=== PATIENT | male | born 1950 | race Caucasian/White ===

== ENCOUNTER 2020-06-29 10:29 | Outpatient (REF) | payer MEDICARE, SELFPAY ==
[2020-06-29 11:47] LABS: MANUAL DIFF FLAG NO
[2020-06-29 11:56] LABS: Glucose Urine UA NEG (NEG); Leukocyte Esterase Urine NEG (NEG); Nitrite Urine NEG (NEG); PH 7.5 (5.0-8.0); Specific Gravity - Urine 1.015 (1.005-1.025); Urine Blood NEG (NEG); Urine Ketones NEG (NEG); Urine Protein NEG (NEG-TRACE)
[2020-06-29 12:02] LABS: Appearance Urine CLEAR; Basophils Absolute Auto 0.1 X10*3/uL (0.0-0.2); Basophils Percent Auto 0.5 % (0-2); Color Urine YELLOW; Eosinophils Absolute Auto 0.4 X10*3/uL (0.0-0.4); Eosinophils Percent Auto 3.3 % (0-4); Hemoglobin 15.3 g/dl (14.0-18.0); Imm Gran Abs Auto 0.08 X10*3/uL (0.00-0.03); Imm Gran Pct Auto 0.7 % (0.0-0.4); Lymphocytes Absolute Auto 2.4 X10*3/uL (1.2-4.9); Lymphocytes Percent Auto 22.5 % (20-40); Mean Corpuscular HGB Conc 32.6 g/dl (31.0-36.0); Mean Corpuscular Hemoglobin 30.2 pg (27.0-33.0); Mean Corpuscular Volume 92.7 fL (80-98); Mean Platelet Volume 10.3 fL (9.4-12.4); Monocytes Absolute Auto 0.7 X10*3/uL (0.1-1.2); Monocytes Percent Auto 6.7 % (2-11); Neutrophils Absolute Auto 7.1 X10*3/uL (2.0-8.3); Neutrophils Percent Auto 66.3 % (45-73); Platelet Count 273 X10*3/uL (160-400); Red Blood Count 5.07 X10*6/uL (4.60-5.80); Red Cell Distribution Width 13.7 % (11.0-16.0); White Blood Count 10.8 X10*3/uL (4.8-10.8)
[2020-06-29 12:19] LABS: Creatinine Urine 52.46 mg/dL; Microalbumin Urine < 5.0 mg/L
[2020-06-29 12:24] LABS: Estimated Average Glucose 120 mg/dL; Hemoglobin A1c % 5.8 %
[2020-06-29 12:59] LABS: Alanine Aminotransferase 41 U/L (0-40); Alkaline Phosphatase 94 U/L (39-117); Anion Gap 13 (12-20); Aspartate Amino Transferase 29 U/L (5-37); Bilirubin Total 0.8 mg/dL (0.0-1.0); Blood Urea Nitrogen 15 mg/dL (9-16); Calcium 9.2 mg/dL (8.4-10.2); Carbon Dioxide 24 mmol/L (22-29); Chloride 105 mmol/L (96-108); Cholesterol 167 mg/dL; Estimated Glomerular Filt Rate > 60; Glucose Fasting 99 mg/dL (60-99); HDL Cholesterol 36 mg/dL; LDL Cholesterol Calculated 112 mg/dl; Potassium 4.2 mmol/l (3.3-5.1); Sodium 138 mmol/L (135-145); Triglycerides 96 mg/dL
[2020-06-29 13:33] LABS: Prostate Specific Antigen 1.01 ng/mL (<0.05-4.0)
== END 2020-06-29 10:30 | disposition home or self-care (01) ==
LOC: HO.LAB 10:29
PROVIDERS: PCP Internal Medicine; Visit Provider Internal Medicine
DX: D72.829 Elevated white blood cell count, unspecified (principal); I10 Essential (primary) hypertension; E78.00 Pure hypercholesterolemia, unspecified; R73.03 Prediabetes
CPT/HCPCS: 36415; 80053; 80061; 81003; 82043; 83036; 84153; 85025

== ENCOUNTER 2020-11-30 10:23 | Outpatient (REF) | payer MEDICARE, SELFPAY ==
[2020-11-30 11:07] LABS: Estimated Average Glucose 123 mg/dL; Hemoglobin A1c % 5.9 %
[2020-11-30 11:51] LABS: Alanine Aminotransferase 76 U/L (0-40); Albumin Level 4.2 g/dL (3.5-5.0); Alkaline Phosphatase 90 U/L (39-117); Aspartate Amino Transferase 37 U/L (5-37); Bilirubin Direct 0.2 mg/dL (0.0-0.5); Bilirubin Total 0.7 mg/dL (0.0-1.0); Cholesterol 161 mg/dL; Glucose Fasting 105 mg/dL (60-99); HDL Cholesterol 43 mg/dL; LDL Cholesterol Calculated 101 mg/dl; Total Protein 7.1 g/dL (6.5-8.0); Triglycerides 85 mg/dL
[2020-11-30 12:51] LABS: Reflex LDLD? No
== END 2020-11-30 10:24 | disposition home or self-care (01) ==
LOC: HO.LNP 10:23
PROVIDERS: Visit Provider Internal Medicine
DX: E78.00 Pure hypercholesterolemia, unspecified (principal); R73.03 Prediabetes
CPT/HCPCS: 80061; 80076; 82947; 83036

== ENCOUNTER 2021-07-11 10:53 | Outpatient (REF) | payer MEDICARE, SELFPAY ==
[2021-07-11 10:57] LABS: MANUAL DIFF FLAG NO
[2021-07-11 11:06] LABS: Basophils Absolute Auto 0.1 X10*3/uL (0.0-0.2); Basophils Percent Auto 0.6 % (0-2); Eosinophils Absolute Auto 0.4 X10*3/uL (0.0-0.4); Eosinophils Percent Auto 3.1 % (0-4); Hematocrit 46.2 % (42.0-52.0); Hemoglobin 15.3 g/dl (14.0-18.0); Imm Gran Abs Auto 0.09 X10*3/uL (0.00-0.03); Imm Gran Pct Auto 0.7 % (0.0-0.4); Lymphocytes Absolute Auto 2.8 X10*3/uL (1.2-4.9); Lymphocytes Percent Auto 22.9 % (20-40); Mean Corpuscular HGB Conc 33.1 g/dl (31.0-36.0); Mean Corpuscular Hemoglobin 31.2 pg (27.0-33.0); Mean Corpuscular Volume 94.3 fL (80.0-98.0); Mean Platelet Volume 10.6 fL (9.4-12.4); Monocytes Percent Auto 7.7 % (2-11); Neutrophils Absolute Auto 8.1 x10*3/uL (2.0-8.3); Platelet Count 248 X10*3/uL (160-400); Red Cell Distribution Width 13.5 % (11.0-16.0); White Blood Count 12.4 X10*3/uL (4.8-10.8)
[2021-07-11 11:08] LABS: Appearance Urine CLEAR; Color Urine YELLOW; Glucose Urine UA NEG (NEG); Leukocyte Esterase Urine NEG (NEG); Nitrite Urine NEG (NEG); PH 7.5 (5.0-8.0); Urine Blood NEG (NEG); Urine Ketones NEG (NEG); Urine Protein NEG (NEG-TRACE)
[2021-07-11 11:21] LABS: Estimated Average Glucose 120 mg/dL; Hemoglobin A1c % 5.8 %
[2021-07-11 11:24] LABS: Creatinine Urine 101.88 mg/dL; Microalbum/Creatinine Ratio Ur 7.8 ug/mg cr
[2021-07-11 11:31] LABS: Alanine Aminotransferase 47 U/L (0-40); Albumin Level 4.2 g/dL (3.5-5.0); Alkaline Phosphatase 81 U/L (39-117); Anion Gap 10 (12-20); Aspartate Amino Transferase 27 U/L (5-37); Bilirubin Total 0.8 mg/dL (0.0-1.0); Blood Urea Nitrogen 20 mg/dL (9-16); Calcium 9.9 mg/dL (8.4-10.2); Carbon Dioxide 29 mmol/L (22-29); Chloride 107 mmol/L (96-108); Cholesterol 172 mg/dL; Estimated Glomerular Filt Rate > 60; Glucose Fasting 104 mg/dL (60-99); HDL Cholesterol 37 mg/dL; LDL Cholesterol Calculated 112 mg/dl; Potassium 4.3 mmol/L (3.3-5.1); Sodium 142 mmol/L (135-145); Total Protein 7.2 g/dL (6.5-8.0); Triglycerides 119 mg/dL
[2021-07-11 11:38] LABS: Reflex LDLD? No
== END 2021-07-11 10:54 | disposition home or self-care (01) ==
LOC: HO.LNP 10:53
PROVIDERS: Visit Provider Internal Medicine
DX: I10 Essential (primary) hypertension (principal); E78.00 Pure hypercholesterolemia, unspecified; R73.03 Prediabetes; D72.829 Elevated white blood cell count, unspecified; Z12.5 Encounter for screening for malignant neoplasm of prostate
CPT/HCPCS: 80053; 80061; 81003; 82043; 83036; 84153; 85025

== ENCOUNTER 2022-04-04 11:18 | Outpatient (REF) | payer MEDICARE, SELFPAY ==
[2022-04-04 12:31] LABS: Cholesterol 156 mg/dL; HDL Cholesterol 36 mg/dL; LDL Cholesterol Calculated 107 mg/dl; Triglycerides 68 mg/dL
[2022-04-04 12:37] LABS: Reflex LDLD? No
== END 2022-04-04 11:19 | disposition home or self-care (01) ==
LOC: HO.LNP 11:18
PROVIDERS: Visit Provider Internal Medicine
DX: E78.00 Pure hypercholesterolemia, unspecified (principal)
CPT/HCPCS: 80061

== ENCOUNTER 2022-10-05 10:38 | Outpatient (REF) | payer MEDICARE, SELFPAY ==
[2022-10-05 10:44] LABS: MANUAL DIFF FLAG NO
[2022-10-05 10:55] LABS: Appearance Urine Clear; Color Urine Yellow; Glucose Urine UA Negative (Negative); Leukocyte Esterase Urine Small (1+) (Negative); Nitrite Urine Negative (Negative); UMIC TRIGGER UACC YES; Urine Blood Negative (Negative); Urine Ketones Negative (Negative); Urine Protein Negative (Neg-Trace)
[2022-10-05 10:57] LABS: Basophils Absolute Auto 0.1 X10*3/uL (0.0-0.2); Basophils Percent Auto 0.7 % (0-2); Eosinophils Absolute Auto 0.6 X10*3/uL (0.0-0.4); Eosinophils Percent Auto 5.5 % (0-4); Hematocrit 48.1 % (42.0-52.0); Hemoglobin 15.8 g/dl (14.0-18.0); Imm Gran Abs Auto 0.09 X10*3/uL (0.00-0.03); Imm Gran Pct Auto 0.8 % (0.0-0.4); Lymphocytes Absolute Auto 2.9 X10*3/uL (1.2-4.9); Lymphocytes Percent Auto 25.2 % (20-40); Mean Corpuscular HGB Conc 32.8 g/dl (31.0-36.0); Mean Corpuscular Hemoglobin 30.7 pg (27.0-33.0); Mean Corpuscular Volume 93.6 fL (80.0-98.0); Mean Platelet Volume 10.3 fL (9.4-12.4); Monocytes Absolute Auto 0.9 X10*3/uL (0.1-1.2); Monocytes Percent Auto 7.9 % (2-11); Neutrophils Absolute Auto 6.9 x10*3/uL (2.0-8.3); Neutrophils Percent Auto 59.9 % (45-73); Platelet Count 273 X10*3/uL (160-400); Red Blood Count 5.14 X10*6/uL (4.60-5.80); White Blood Count 11.5 X10*3/uL (4.8-10.8)
[2022-10-05 11:08] LABS: Bacteria Urine None Seen (None Seen); Hyaline Casts Urine 0-2 /LPF (0-2); RBC Urine 0-2 /HPF (0-2); Squamous Epithelial Cell Urine 0-2 /HPF (0-2); UACC Culture Trigger YES; WBC Urine 0-5 /HPF (0-5)
[2022-10-05 11:23] LABS: Estimated Average Glucose 123 mg/dL; Hemoglobin A1c % 5.9 %
[2022-10-05 11:24] LABS: Alanine Aminotransferase 48 U/L (0-40); Albumin Level 4.1 g/dL (3.5-5.0); Alkaline Phosphatase 111 U/L (39-117); Anion Gap 13 (12-20); Aspartate Amino Transferase 30 U/L (5-37); Bilirubin Total 0.9 mg/dL (0.0-1.0); Blood Urea Nitrogen 13 mg/dL (9-16); Calcium 9.5 mg/dL (8.4-10.2); Carbon Dioxide 28 mmol/L (22-29); Chloride 106 mmol/L (96-108); Cholesterol 185 mg/dL; Estimated Glomerular Filt Rate > 60; Glucose Fasting 106 mg/dL (60-99); HDL Cholesterol 40 mg/dL; LDL Cholesterol Calculated 130 mg/dl; Potassium 4.3 mmol/L (3.3-5.1); Sodium 143 mmol/L (135-145); Total Protein 7.1 g/dL (6.5-8.0); Triglycerides 75 mg/dL
[2022-10-05 11:31] LABS: PSA,Total (Free>4and<10) 0.67 ng/mL (0.00-4.00)
[2022-10-05 11:33] LABS: Creatinine Urine 101.32 mg/dL; Microalbum/Creatinine Ratio Ur 6.9 ug/mg cr
== END 2022-10-05 10:39 | disposition home or self-care (01) ==
LOC: HO.LNP 10:38
PROVIDERS: Visit Provider Internal Medicine
DX: Z12.5 Encounter for screening for malignant neoplasm of prostate (principal); I10 Essential (primary) hypertension; E78.00 Pure hypercholesterolemia, unspecified; R73.03 Prediabetes; E78.6 Lipoprotein deficiency; D72.829 Elevated white blood cell count, unspecified
CPT/HCPCS: 80053; 80061; 81001; 82043; 83036; 84153; 85025; 87086

== ENCOUNTER 2023-03-05 13:46 | Outpatient (AMB) | payer MEDICARE, SELFPAY ==
[2023-03-05 14:39] VITALS: BP 140/70; PULSE 83; BMI 29.5
--- NOTE | 2023-03-05 14:39 | MHC.OFFVIS ---
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 Patient has multiple cardiovascular risk factors including hypertension, dyslipidemia. Per patient, he also has vascular disease and underwent abdominal aortic aneurysm repair few years ago at [facility]. No documented coronary disease myocardial infarction. He has been getting off and on chest pains. Nothing in the last few weeks. Generally happens when he is exerting himself. He is somewhat vague in his description but overall, possible angina. [facility] Medical History (Updated 03/05/23 @ 14:49 by Latrell Knox MD) Dyslipidemia Hypertension ELLA (obstructive sleep apnea) Surgical History (Updated 03/05/23 @ 14:50 by Latrell Knox MD) No pertinent past surgical history Status post AAA (abdominal aortic aneurysm) repair Family History (Updated 03/05/23 @ 14:41 by Maddison Rice) Father Lung cancer Mother No problems noted. Social History (Updated 03/05/23 @ 14:41 by Maddison Rice) Alcohol intake: current Alcohol intake frequency: holidays/special occasions only Patient Tobacco Use Status: Former Tobacco user Quit Date: 2020 Review of Systems Const Denies chills, Denies daytime sleepiness, Denies fatigue, Denies fever(s), Denies frequent falls, Denies night sweats, Denies snoring, Denies weakness, Denies weight gain and Denies weight loss Eyes Denies loss of vision ENT Denies dizziness and Denies hearing loss Card Denies chest pain, Denies chest pain with activity, Denies syncope, Denies rapid heart rate, Denies edema, Denies claudication, Denies leg edema, Denies lightheadedness, Denies palpitations, Denies dyspnea, Denies dyspnea on exertion and Denies orthopnea Resp Denies cough, Denies excessive phlegm production, Denies dyspnea, Denies dyspnea on exertion, Denies snoring and Denies wheezing GI Denies abdominal pain, Denies hematochezia, Denies change in bowel habits, Denies change in stool character, Denies heartburn, Denies nausea and Denies vomiting Denies hematuria, Denies dysuria and Denies urinary frequency Musc Denies arthralgias, Denies muscle weakness, Denies numbness and Denies tingling Skin/Breast Denies nail changes and Denies rash Neuro Denies Abnormal speech present, Denies dizziness, Denies syncope, Denies frequent falls, Denies loss of vision, Denies memory loss, Denies numbness, Denies tingling and Denies weakness Psych Denies depression and Denies memory loss Endo Denies fatigue and Denies palpitations Aller/Immun Denies wheezing Physical Exam Vital Signs: Last Vital Signs Pulse 83 03/05/23 14:39 BP 140/70 H 03/05/23 14:39 BMI result Body Mass Index 29.5 Const General: comfortable and no acute distress Orientation/consciousness: patient oriented x3 HEENT Other: Unremarkable Head: Yes normal to inspection Neck Neck: Yes normal visual inspection Chest Chest palpation & inspection: normal inspection of the chest Resp Auscultation: clear to auscultation bilaterally Cardio Palpation: normal PMI Heart sounds: S1 normal heart sound present, S2 normal heart sound present, no gallops, no murmurs and no rubs GI Palpation (GI): Soft to palpation Back/Spine/Pelvis Other: unremarkable Skin General skin exam: no rashes or lesions noted Neuro General: patient oriented x3 Speech: No Abnormal speech present Extrem General: Yes normal to inspection Psych Mental Status: mental status grossly normal Office Procedures EKG Details: EKG with sinus rhythm at 83/Min; no significant ST-T changes and otherwise unremarkable[place] [id number], Complete Assessment & Plan Assessment & Plan (1) Precordial chest pain: Code(s): R07.2 - Precordial pain (2) Hypertension: Code(s): I10 - Essential (primary) hypertension (3) Dyslipidemia: Code(s): E78.5 - Hyperlipidemia, unspecified (4) Status post AAA (abdominal aortic aneurysm) repair: Code(s): Z98.890 - Other specified postprocedural states; Z86.79 - Personal history of other diseases of the circulatory system Plan Presentation possible angina but difficult to say as he is somewhat vague in description. He needs further workup with echocardiogram and stress test. Discussed with patient and he is agreeable. In the interim, advised to avoid strenuous physical activity. Orders: Orders CA stress test Today R07.2 - Precordial pain CA echo transthoracic complete Today I25.10 - Atherosclerotic heart disease of [place] coronary artery without angina pectoris, R07.2 - Precordial pain NM cardiolite stress test Today R07.2 - Precordial pain Coding Level of Care Code New Pt Level 4 (19543) Diagnoses Precordial chest pain R07.2 Hypertension I10 Dyslipidemia E78.5 Status post AAA (abdominal aortic aneurysm) repair Z98.890; Z86.79 CPT Codes EKG - CPT: [id number], Complete ([id number])
== END 2023-03-05 14:56 | disposition home or self-care (01) ==
PROVIDERS: PCP Internal Medicine; Referring Provider Internal Medicine; Visit Provider Internal Medicine
DX: R07.2 Precordial pain (principal); I10 Essential (primary) hypertension; E78.5 Hyperlipidemia, unspecified; Z98.890 Other specified postprocedural states; Z86.79 Personal history of other diseases of the circulatory system
CPT/HCPCS: 93010; 99204

== ENCOUNTER → 2023-03-05 13:46 | Outpatient (BNVA) | payer MEDICARE, SELFPAY | PROVIDERS: PCP Internal Medicine; Referring Provider Internal Medicine; Visit Provider Internal Medicine | DX: R07.2 Precordial pain (principal); I10 Essential (primary) hypertension; E78.5 Hyperlipidemia, unspecified; Z86.79 Personal history of other diseases of the circulatory system; Z98.890 Other specified postprocedural states | CPT/HCPCS: 93005; 99202 ==

== ENCOUNTER → 2023-04-10 07:36 | Outpatient (REF) | payer MEDICARE, SELFPAY ==
--- NOTE | 2023-04-10 07:42 | CA_ITS ---
Acquisition Time: 2023-04-10 09:10:26 Total Exercise Time: 00:05:57 Test Indications: CP Medications: AMLODIPINE ATORVASTATIN LISINOPRIL/HCTZ Protocol: ANNELISE Max HR: 120 BPM 81% of Pred: 147 BPM Max BP: 184/080 mmHG Max Work Load: 6.3 METS Exercise stress test exercise 5 min 57 sec of Annelise protocol stage 1 held and manually adjusted to 2.2mph and 12% mph briefly achieivng 81% MPHR with 2-3/10 chest pressure, mild SOB, with isolated PACs and PVCs, with normotensive response to exercise, with downsloping depression V4-V6. Chest pressure resolved with rest. Nuclear images pending.Test reviewed with Dr. Knox. Referred By: Latrell Knox Overread By: Opal Marshall
== END ==
LOC: HO.CARD 07:36
PROVIDERS: PCP Internal Medicine; Visit Provider Internal Medicine
DX: R07.2 Precordial pain (principal); I25.10 Atherosclerotic heart disease of native coronary artery without angina pectoris
CPT/HCPCS: 78452; 93017; 93306; 93356; A9500

== ENCOUNTER → 2023-04-10 07:42 | Outpatient (BNV) | payer MEDICARE, SELFPAY | PROVIDERS: PCP Internal Medicine; Visit Provider Nurse Practitioner | DX: I25.10 Atherosclerotic heart disease of native coronary artery without angina pectoris (principal) | CPT/HCPCS: 78452; 93016; 93018; 93306 ==

== ENCOUNTER 2023-04-30 06:24 | Outpatient (REF) | payer MEDICARE, SELFPAY ==
[2023-04-30 06:34] LABS: MANUAL DIFF FLAG NO
[2023-04-30 07:18] LABS: Basophils Absolute Auto 0.1 X10*3/uL (0.0-0.2); Basophils Percent Auto 0.5 % (0-2); Eosinophils Absolute Auto 0.4 X10*3/uL (0.0-0.4); Hematocrit 47.8 % (42.0-52.0); Hemoglobin 15.7 g/dl (14.0-18.0); Imm Gran Abs Auto 0.07 X10*3/uL (0.00-0.03); Imm Gran Pct Auto 0.6 % (0.0-0.4); Lymphocytes Absolute Auto 3.2 X10*3/uL (1.2-4.9); Mean Corpuscular HGB Conc 32.8 g/dl (31.0-36.0); Mean Corpuscular Hemoglobin 31.2 pg (27.0-33.0); Mean Platelet Volume 10.5 fL (9.4-12.4); Monocytes Absolute Auto 0.9 X10*3/uL (0.1-1.2); Monocytes Percent Auto 7.4 % (2-11); Neutrophils Absolute Auto 7.7 x10*3/uL (2.0-8.3); Neutrophils Percent Auto 62.5 % (45-73); Platelet Count 235 X10*3/uL (160-400); Red Blood Count 5.03 X10*6/uL (4.60-5.80); Red Cell Distribution Width 14.5 % (11.0-16.0); White Blood Count 12.2 X10*3/uL (4.8-10.8)
[2023-04-30 07:23] LABS: INTERNATIONAL NORM RATIO 0.9 (0.9-1.1)
[2023-04-30 07:47] LABS: Anion Gap 13 (12-20); Blood Urea Nitrogen 12 mg/dL (9-16); Calcium 9.7 mg/dL (8.4-10.2); Carbon Dioxide 24 mmol/L (22-29); Chloride 111 mmol/L (96-108); Estimated Glomerular Filt Rate > 60; Glucose Random 121 mg/dL (60-115); Potassium 4.3 mmol/L (3.3-5.1); Sodium 144 mmol/L (135-145)
== END 2023-04-30 06:25 | disposition home or self-care (01) ==
LOC: HO.LAB 06:24
PROVIDERS: PCP Internal Medicine; Visit Provider Nurse Practitioner
DX: R93.1 Abnormal findings on diagnostic imaging of heart and coronary circulation (principal); R94.39 Abnormal result of other cardiovascular function study; E78.5 Hyperlipidemia, unspecified; I10 Essential (primary) hypertension; R07.2 Precordial pain; Z98.890 Other specified postprocedural states; Z86.79 Personal history of other diseases of the circulatory system
CPT/HCPCS: 36415; 80048; 85025; 85610

== ENCOUNTER → 2023-05-01 23:59 | Outpatient (BNV) | payer MEDICARE, SELFPAY | PROVIDERS: PCP Internal Medicine; Visit Provider Internal Medicine Cardiovascular Disease | DX: I20.89 Other forms of angina pectoris (principal); R93.1 Abnormal findings on diagnostic imaging of heart and coronary circulation; R07.9 Chest pain, unspecified | CPT/HCPCS: 93458; 93571; 99152 ==

== ENCOUNTER 2023-05-03 11:23 | Outpatient (REF) | payer MEDICARE, SELFPAY ==
[2023-05-03 11:27] LABS: MANUAL DIFF FLAG NO
[2023-05-03 11:35] LABS: Basophils Absolute Auto 0.1 X10*3/uL (0.0-0.2); Basophils Percent Auto 0.5 % (0-2); Eosinophils Absolute Auto 0.3 X10*3/uL (0.0-0.4); Eosinophils Percent Auto 2.5 % (0-4); Hematocrit 49.5 % (42.0-52.0); Hemoglobin 16.1 g/dl (14.0-18.0); Imm Gran Abs Auto 0.07 X10*3/uL (0.00-0.03); Imm Gran Pct Auto 0.6 % (0.0-0.4); Lymphocytes Absolute Auto 2.6 X10*3/uL (1.2-4.9); Lymphocytes Percent Auto 20.7 % (20-40); Mean Corpuscular HGB Conc 32.5 g/dl (31.0-36.0); Mean Corpuscular Hemoglobin 31.1 pg (27.0-33.0); Mean Corpuscular Volume 95.6 fL (80.0-98.0); Mean Platelet Volume 11.3 fL (9.4-12.4); Monocytes Absolute Auto 0.9 X10*3/uL (0.1-1.2); Monocytes Percent Auto 7.1 % (2-11); Neutrophils Absolute Auto 8.7 x10*3/uL (2.0-8.3); Neutrophils Percent Auto 68.6 % (45-73); Platelet Count 253 X10*3/uL (160-400); Red Blood Count 5.18 X10*6/uL (4.60-5.80); Red Cell Distribution Width 14.5 % (11.0-16.0); White Blood Count 12.7 X10*3/uL (4.8-10.8)
[2023-05-03 11:36] LABS: Appearance Urine Clear; Color Urine Yellow; Glucose Urine UA Negative (Negative); Leukocyte Esterase Urine Trace (Negative); Nitrite Urine Negative (Negative); Specific Gravity - Urine 1.015 (1.005-1.025); UMIC TRIGGER UACC YES; Urine Blood Negative (Negative); Urine Ketones Negative (Negative); Urine Protein Negative (Neg-Trace)
[2023-05-03 11:39] LABS: Bacteria Urine None Seen (None Seen); Hyaline Casts Urine 0-2 /LPF (0-2); RBC Urine 0-2 /HPF (0-2); Squamous Epithelial Cell Urine 0-2 /HPF (0-2); WBC Urine 0-5 /HPF (0-5)
[2023-05-03 11:44] LABS: Estimated Average Glucose 105 mg/dL; Hemoglobin A1c % 5.3 % (<6.0)
[2023-05-03 11:53] LABS: Alanine Aminotransferase 46 U/L (0-40); Albumin Level 4.3 g/dL (3.5-5.0); Alkaline Phosphatase 104 U/L (39-117); Anion Gap 11 (12-20); Aspartate Amino Transferase 32 U/L (5-37); Bilirubin Total 0.9 mg/dL (0.0-1.0); Blood Urea Nitrogen 12 mg/dL (9-16); Calcium 10.2 mg/dL (8.4-10.2); Carbon Dioxide 28 mmol/L (22-29); Chloride 105 mmol/L (96-108); Cholesterol 177 mg/dL (<200); Estimated Glomerular Filt Rate > 60; Glucose Fasting 105 mg/dL (60-99); HDL Cholesterol 41 mg/dL (>40); LDL Cholesterol Calculated 119 mg/dL (<100); Potassium 3.7 mmol/L (3.3-5.1); Sodium 140 mmol/L (135-145); Total Protein 7.7 g/dL (6.5-8.0); Triglycerides 89 mg/dL (<150)
[2023-05-03 12:07] LABS: PSA,Total (Free>4and<10) 0.55 ng/mL (0.00-4.00)
[2023-05-03 12:22] LABS: Creatinine Urine 49.99 mg/dL; Microalbumin Urine < 5.0 mg/L
== END 2023-05-03 11:24 | disposition home or self-care (01) ==
LOC: HO.LNP 11:23
PROVIDERS: Visit Provider Internal Medicine
DX: Z12.5 Encounter for screening for malignant neoplasm of prostate (principal); I10 Essential (primary) hypertension; E78.00 Pure hypercholesterolemia, unspecified; E78.6 Lipoprotein deficiency; D72.829 Elevated white blood cell count, unspecified; R73.03 Prediabetes
CPT/HCPCS: 80053; 80061; 81001; 82043; 82570; 83036; 84153; 85025

== ENCOUNTER 2023-05-16 12:19 | Outpatient (AMB) | payer MEDICARE, SELFPAY ==
[2023-05-16 12:28] VITALS: BP 118/62; PULSE 55; BMI 29.9
--- NOTE | 2023-05-16 12:28 | MHC.OFFVIS ---
Intake Vital Signs 05/16/23 12:28 Height 6 ft Weight 220 lb 7.396 oz BMI 29.9 BP 118/62 Blood Pressure Location Lt brachial Position Sitting Pulse 55 Intake Visit Reasons: Follow up post cardiac cath Utilization Management Um Nurse Required: No Accompanied by: Allergies No Known Allergies [No Known Allergies*] Allergy (Verified 05/16/23 12:31) Medication List - Last Reconciled 05/16/23 by Opal Marshall NP amlodipine 5 mg PO DAILY aspirin 81 mg PO DAILY 90 days atorvastatin 80 mg PO DAILY lisinopril-hydrochlorothiazide 20-12.5 mg 1 tab PO DAILY metoprolol succinate ER 50 mg PO DAILY HPI HPI Comments History of Present Illness Details 72-year-old male presents today for a follow-up post testing and cardiac catheterization. He presents with his and they mostly want to discuss the CABG surgery that was presented to him and their worries. He reports he is doing well and still has that occasional mild chest discomfort. He wanted to discuss what they are going to do for the CABG, where will they get the graft, the risks, and the testing Kp Joshi wanted. The testing was a caroitid ultrasound and a CT. he was prescribed metprolol succinate after his stress test and has been doing well with it. Right radial site is healing appropriate. [facility] Medical History ELLA (obstructive sleep apnea) Dyslipidemia Hypertension Surgical History Status post AAA (abdominal aortic aneurysm) repair No pertinent past surgical history Family History Father Lung cancer Mother No problems noted. Social History Alcohol intake: current Alcohol intake frequency: holidays/special occasions only Patient Tobacco Use Status: Former Tobacco user Quit Date: 2020 Review of Systems Const Denies chills, Denies fatigue, Denies fever(s), Denies frequent falls, Denies weakness, Denies weight gain and Denies weight loss ENT Denies dizziness Card Denies chest pain, Denies chest pain with activity, Denies syncope, Denies rapid heart rate, Denies pedal edema, Denies irregular heart rhythm, Denies leg edema, Denies lightheadedness, Denies palpitations, Denies dyspnea, Denies dyspnea on exertion, Denies orthopnea and Denies other (LOC) Resp Denies cough, Denies dyspnea and Denies dyspnea on exertion GI Denies hematochezia and Denies change in bowel habits Musc Denies abnormal gait, Denies arthralgias, Denies muscle weakness, Denies numbness, Denies radiating pain into limb and Denies tingling Neuro Denies abnormal gait, Denies dizziness, Denies syncope, Denies frequent falls, Denies numbness, Denies tingling and Denies weakness Endo Denies fatigue and Denies palpitations Physical Exam Const General: healthy appearing and no acute distress Orientation/consciousness: patient oriented x3 HEENT Head: Yes normal to inspection Eyes General: appearance normal, both eyes and all related structures Neck Neck: Yes normal visual inspection Chest Chest palpation & inspection: normal inspection of the chest Resp Effort & Inspection: normal respiratory effort Auscultation: clear to auscultation bilaterally Cardio Jugular venous distension: no JVD Palpation: normal PMI Rate: regular rate Rhythm: regular rhythm Heart sounds: S1 normal heart sound present, S2 normal heart sound present, no click, no gallops, no murmurs and no rubs GI Inspection: Yes normal to inspection Palpation (GI): Soft to palpation Skin General skin exam: no rashes or lesions noted Neuro General: patient oriented x3 Extrem Other: Right radial access site for cardiac cath. Healing well. No bruising or tenderness noted. Pulses presesnt distal and proximal. General: Yes normal to inspection Psych Appearance: grossly normal Results Reviewed Results Reviewed: Stress test with nuclear imaging - 1. Myocardial perfusion imaging study shows mixed ischemia/infarct pattern in the inferior wall. 2. Gated LVEF is 70% during stress and 69% during rest, correlate with echocardiogram. 3. Transient ischemic dilatation not present. Cardiac Cathetierization - LMCA: Mild diffuse disease (<30%). LAD: Lesion in Prox LAD: Proximal subsection.70% stenosis . LCx: Lesion in Mid CX: 100% stenosis .Chronic total occlusion. Lesion in 1st Ob Araceli: Proximal subsection.80% stenosis . RCA: Mild luminal irregularities (<30%). Assessment & Plan Assessment & Plan (1) S/P cardiac cath: Comment: 05/01/[address] Ernesto Cardiac Cathetierization - LMCA: Mild diffuse disease (<30%). LAD: Lesion in Prox LAD: Proximal subsection.70% stenosis . LCx: Lesion in Mid CX: 100% stenosis .Chronic total occlusion. Lesion in 1st Ob Araceli: Proximal subsection.80% stenosis . RCA: Mild luminal irregularities (<30%). Rec: CABG Code(s): Z98.890 - Other specified postprocedural states (2) Abnormal nuclear stress test: Code(s): R94.39 - Abnormal result of other cardiovascular function study (3) Hypertension: Code(s): I10 - Essential (primary) hypertension (4) Precordial chest pain: Code(s): R07.2 - Precordial pain Plan PT is planning for a CABG. He is going to let us know when it is scheduled. Discussed in detail about the total occlusion. Continue medications as prescribed - ASA 81mg will be indefinitely. Any chest discomfort seek ED care. Will have him return in [address] Knox. Coding Level of Care Code Est Pt Level 4 (40024) Diagnoses S/P cardiac cath Z98.890 Abnormal nuclear stress test R94.39 Hypertension I10 Precordial chest pain R07.2
== END 2023-05-16 12:56 | disposition home or self-care (01) ==
PROVIDERS: PCP Internal Medicine; Visit Provider Nurse Practitioner
DX: Z98.890 Other specified postprocedural states (principal); R94.39 Abnormal result of other cardiovascular function study; I10 Essential (primary) hypertension; R07.2 Precordial pain
CPT/HCPCS: 99214

== ENCOUNTER → 2023-05-16 12:19 | Outpatient (BNVA) | payer MEDICARE, SELFPAY | PROVIDERS: PCP Internal Medicine; Visit Provider Nurse Practitioner | DX: R07.2 Precordial pain (principal); I10 Essential (primary) hypertension; R94.39 Abnormal result of other cardiovascular function study; Z98.890 Other specified postprocedural states | CPT/HCPCS: 99212 ==

== ENCOUNTER 2023-05-30 12:36 | Outpatient (REF) | payer MEDICARE, SELFPAY ==
--- NOTE | ~2023-05-30 | CT_ITS ---
EXAMINATION: CT CHEST WITHOUT CONTRAST CLINICAL INFORMATION: Aortic calcifications, carotid artery. COMPARISON: None available. TECHNIQUE: Multidetector volumetric CT imaging of the chest was done. Axial MIP volume rendering provided. Sagittal and coronal reformatted images were obtained. This CT examination was performed using dose optimization techniques as appropriate, variously including the following: *Automated exposure control *Adjustment of mA and/or kV according to patient size (this includes techniques or standardized protocols for targeted exams where dose is matched to indication/reason for exam; i.e. 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 Degenerative changes. Abdominal aortic stent graft. LUNGS: Minor apical thickening. Trachea and bronchi are patent. Hyperinflation with centrilobular emphysema. RLL groundglass opacity measuring 2.5 x 2.6 x 2 cm abuts the right major fissure. On 7:344, possible slight hyperdense peripheral appearance to the groundglass opacity. Adjacent 5 and 6 mm perifissural nodules are seen, likely lymph nodes. Scattered atelectasis. MEDIASTINUM: Question 1.5 cm right anterior thyroid hypodensity. Right thyroid calcification. No pathologic lymphadenopathy. Nonenlarged heart. No pericardial effusion. Nonaneurysmal aorta with atherosclerotic calcifications. Mild atherosclerotic calcifications right brachiocephalic/common carotid artery origin. Punctate calcifications at origins of the left subclavian and left common carotid arteries. Ectatic right pulmonary artery. CORONARY ARTERY CALCIFICATION: Moderate. PLEURA: There is no pleural effusion. No pleural mass. Minor focal pleural thickening left lower lobe adjacent to the fissure. AXILLA: No lymphadenopathy. UPPER ABDOMEN: Unremarkable. OSSEOUS/SOFT TISSUE STRUCTURES: 7 cm right anteromedial chest wall and 2.7 cm left posterolateral thoracic subcutaneous lesions, likely sebaceous cysts. Mild gynecomastia. CT/CT chest wo IV con IMPRESSION: Moderate coronary artery calcifications. Mild aortic calcifications. No hemodynamically significant great vessel calcific stenoses on noncontrast study. Indeterminate 2.6 cm right lower lobe groundglass opacity. Follow-up CT in 3-6 months. Right thyroid nodule calcification question nodule. Thyroid ultrasound recommended. Likely chest wall sebaceous cysts. Fleischner guidelines were followed.
== END 2023-05-30 12:37 | disposition home or self-care (01) ==
LOC: HO.CT 12:36
PROVIDERS: PCP Internal Medicine; Visit Provider Thoracic Surgery (Cardiothoracic Vascular Surgery)
DX: I70.0 Atherosclerosis of aorta (principal); R09.89 Other specified symptoms and signs involving the circulatory and respiratory systems
CPT/HCPCS: 71250

== ENCOUNTER 2023-06-06 11:38 | Outpatient (REF) | payer MEDICARE, SELFPAY ==
--- NOTE | ~2023-06-06 | US_ITS ---
EXAMINATION: US EXTRACRANIAL CAROTID DUPLEX, BILATERAL CLINICAL INFORMATION: Carotid bruit. COMPARISON: None available. TECHNIQUE: Real-time ultrasound and Doppler techniques (integrating B-mode 2-D vascular images, Doppler spectral analysis and color-flow Doppler imaging) were utilized to interrogate the extracranial carotid arteries, the vertebral arteries and proximal subclavian arteries bilaterally. The degree of stenosis is determined by criteria similar to NASCET. FINDINGS: Right Side: 1. There is [id number] atherosclerotic plaque seen in the bifurcation/proximal ICA region. 2. The common carotid artery PSV proximally is 81 cm/s and distally 67 cm/s. 3. The proximal internal carotid artery velocities are 93 cm/s systolic and 23 cm/s diastolic. 4. The proximal external carotid artery PSV is 134 cm/s. 5. The vertebral artery shows antegrade flow. 6. The subclavian artery waveforms are normal. Left Side: 1. There is mild atherosclerotic plaque seen in the bifurcation/proximal ICA region. 2. The common carotid artery PSV proximally is 122 cm/s and distally 99 cm/s. 3. The proximal internal carotid artery velocities are 94 cm/s systolic and 17 cm/s diastolic. 4. The proximal external carotid artery PSV is 113 cm/s. 5. The vertebral artery shows antegrade flow. 6. The subclavian artery waveforms are normal. US/US carotid duplex BI IMPRESSION: 1. RIGHT: Minimal, non-hemodynamically significant stenosis of the proximal right internal carotid artery corresponding to a 0-49% stenosis by velocity criteria. 2. LEFT: Minimal, non-hemodynamically significant stenosis of the proximal left internal carotid artery corresponding to a 0-49% stenosis by velocity criteria.
== END 2023-06-06 11:39 | disposition home or self-care (01) ==
LOC: HO.HMGCX 11:38
PROVIDERS: PCP Internal Medicine; Visit Provider Thoracic Surgery (Cardiothoracic Vascular Surgery)
DX: R09.89 Other specified symptoms and signs involving the circulatory and respiratory systems (principal)
CPT/HCPCS: 93880

== ENCOUNTER 2023-08-28 12:17 | Outpatient (AMB) | payer MEDICARE, SELFPAY ==
--- NOTE | 2023-08-28 12:39 | A.OFFVIS_ITS ---
Intake Vital Signs 08/28/23 12:40 Height 6 ft Weight 220 lb 0.341 oz BMI 29.8 BP 140/66 H Blood Pressure Location Lt brachial Position Sitting Pulse 70 Intake Visit Reasons: 3 mth f/up cabg/ ac Intake Note: 3 month follow up Environmental Services Specialist Required: No Accompanied by: Spouse Allergies No Known Allergies [No Known Allergies*] Allergy (Verified 08/28/23 12:42) Medication List - Last Reconciled 08/28/23 by Latrell Knox MD amlodipine 5 mg PO DAILY aspirin 81 mg PO DAILY 90 days atorvastatin 80 mg PO DAILY clopidogrel 75 mg PO DAILY metoprolol tartrate 25 mg PO BID HPI HPI Comments History of Present Illness Details Cosme returns for follow-up. He was seen in consultation regarding chest pain. Multiple cardiovascular risk factors including hypertension, dyslipidemia. Also history of vascular disease and he underwent abdominal aortic aneurysm repair many years ago at [facility]. Noninvasive workup led to diagnostic catheterization leading to coronary artery bypass surgery. He states he is actually doing very good. No further cardiac symptoms at this time. He seems to be staying with his family in [place] at this time. [facility] Medical History (Updated 08/28/23 @ 13:03 by Latrell Knox MD) Atherosclerotic cardiovascular disease ELLA (obstructive sleep apnea) Dyslipidemia Hypertension Surgical History (Updated 08/28/23 @ 13:02 by Latrell Knox MD) S/P CABG (coronary artery bypass graft) Status post AAA (abdominal aortic aneurysm) repair Family History Father Lung cancer Mother No problems noted. Social History Alcohol intake: current Alcohol intake frequency: holidays/special occasions only Patient Tobacco Use Status: Former Tobacco user Quit Date: 2020 Review of Systems Const Denies weakness ENT Denies dizziness Card Denies chest pain, Denies chest pain with activity, Denies syncope, Denies rapid heart rate, Denies pedal edema, Denies edema, Denies leg edema, Denies lightheadedness, Denies palpitations, Denies dyspnea, Denies dyspnea on exertion and Denies orthopnea Resp Denies cough, Denies dyspnea and Denies dyspnea on exertion GI Denies hematochezia and Denies change in stool character Musc Denies abnormal gait, Denies muscle cramps, Denies muscle weakness, Denies numbness, Denies radiating pain into limb and Denies tingling Neuro Denies abnormal gait, Denies dizziness, Denies syncope, Denies numbness, Denies tingling and Denies weakness Endo Denies palpitations Physical Exam Vital Signs: Last Vital Signs Pulse 70 08/28/23 12:40 BP 140/66 H 08/28/23 12:40 BMI result Body Mass Index 29.8 Const General: comfortable and no acute distress Orientation/consciousness: patient oriented x3 HEENT Other: Unremarkable Head: Yes normal to inspection Neck Neck: Yes normal visual inspection Chest Chest palpation & inspection: normal inspection of the chest Resp Auscultation: clear to auscultation bilaterally Cardio Palpation: normal PMI Heart sounds: S1 normal heart sound present, S2 normal heart sound present, no gallops, no murmurs and no rubs GI Palpation (GI): Soft to palpation Back/Spine/Pelvis Other: unremarkable Skin General skin exam: no rashes or lesions noted Neuro General: patient oriented x3 Extrem General: Yes normal to inspection Psych Mental Status: mental status grossly normal Assessment & Plan Assessment & Plan (1) Atherosclerotic cardiovascular disease: Code(s): I25.10 - Atherosclerotic heart disease of [place] coronary artery without angina pectoris Plan: Cardiac studies reviewed in detail. Echocardiogram with LVEF 59%. Inferior/inferoseptal/inferolateral hypokinesis. In the perfusion imaging, mixed ischemia/infarct pattern in the inferior wall. Carotid ultrasound shows no significant stenosis. 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 Status post CABG x3; salas to LAD, SVG to OM1 and SVG to left posterolateral bran ch. Clinically, he does not have any angina. Continue aspirin, beta-blockers and statins. Check lipids. Take Plavix 1 year from time of bypass. (2) S/P CABG (coronary artery bypass graft): Code(s): Z95.1 - Presence of aortocoronary bypass graft Plan: Seems to have recovered well. (3) PAF (paroxysmal atrial fibrillation): Code(s): I48.0 - Paroxysmal atrial fibrillation Plan: Postoperative atrial fibrillation noted after bypass surgery. We can check a Holter for follow-up. He was on amiodarone, now stopped. (4) Hypertension: Code(s): I10 - Essential (primary) hypertension Plan: Med list had lisinopril/HCTZ in the past. No longer on this after bypass. However, patient states home blood pressures are much lower and hence we can monitor. Plan Discussed with significant other. Orders: Orders CA echo transthoracic complete Today I25.10 - Atherosclerotic heart disease of [place] coronary artery without angina pectoris, Z95.1 - Presence of aortocoronary bypass graft ECG 7 day holter monitor Today I48.0 - Paroxysmal atrial fibrillation Liver Panel Today I25.10 - Atherosclerotic heart disease of [place] coronary artery without angina pectoris, Z95.1 - Presence of aortocoronary bypass graft Lipid Panel Today E78.5 - Hyperlipidemia, unspecified, Z95.1 - Presence of aortocoronary bypass graft Coding Level of Care Code Est Pt Level 4 (60822) Diagnoses Atherosclerotic cardiovascular disease I25.10 S/P CABG (coronary artery bypass graft) Z95.1 PAF (paroxysmal atrial fibrillation) I48.0 Hypertension I10
[2023-08-28 12:40] VITALS: BP 140/66; PULSE 70; BMI 29.8
== END 2023-08-28 13:21 | disposition home or self-care (01) ==
PROVIDERS: PCP Internal Medicine; Visit Provider Internal Medicine
DX: I25.10 Atherosclerotic heart disease of native coronary artery without angina pectoris (principal); Z95.1 Presence of aortocoronary bypass graft; I48.0 Paroxysmal atrial fibrillation; I10 Essential (primary) hypertension
CPT/HCPCS: 99214

== ENCOUNTER → 2023-08-28 12:17 | Outpatient (BNVA) | payer MEDICARE, SELFPAY | PROVIDERS: PCP Internal Medicine; Visit Provider Internal Medicine | DX: I25.10 Atherosclerotic heart disease of native coronary artery without angina pectoris (principal); I48.0 Paroxysmal atrial fibrillation; I10 Essential (primary) hypertension; Z95.1 Presence of aortocoronary bypass graft | CPT/HCPCS: 99212 ==

== ENCOUNTER → 2023-08-29 08:14 | Outpatient (REF) | payer MEDICARE, SELFPAY ==
--- NOTE | 2023-08-29 08:31 | HM_ITS ---
Conclusion: 1. Patient was monitored for total period of 6 days and 23 hours 2. Baseline was normal sinus rhythm with average heart of 56 beats per minute 3. No significant pauses noted but frequent sinus bradycardia noted with 68% of time heart rate below 60 beats per minute 4. Occasional PACs noted 5. No patient reported events MTDD
--- NOTE | 2023-08-29 08:31 | CA_ITS ---
Transthoracic Echocardiogram Patient (Last, First, Middle): Cosme Garner, Gender: Male Date of : 1950 Age: 72 Procedure Date: 08/29/2023 Procedure Type: Transthoracic Echocardiogram Location: OP Height: 182.88 cm Weight: 93.9 kg BSA: 2.16 m2 Heart Rate: bpm BP: 160 / 80 mmHg Geophysical Laboratory Chief: TO Referring MD: Latrell Knox MD Air Purifier Servicer: Jc Arrington MD Symptoms: I25.10 - Atherosclerotic heart disease of [place] coronary artery without... Study Quality: Adequate with contrast ECG Rhythm: Sinus Conclusions: - 1. Normal LV ejection fraction of 55-60% with mild LVH with grade 1 diastolic dysfunction 2. Normal cardiac valvular Dopplers with fibrocalcific aortic valve changes noted 3. Normal RV systolic pressure 4. Upper limits of normal ascending aortic size 5. Small pericardial effusion Findings Procedure Information Contrast agent, definity, is being given per protocol without apparent complications. Left Ventricle Normal left ventricular size and systolic function. There is mildly increased left ventricular wall thickness. The visually estimated ejection fraction is between 55-60%. Spectral Doppler is indicative of an impaired relaxation filling pattern. E/E prime ratio is <8, consistent with normal filling pressures. Evidence suggests grade I (mild) diastolic dysfunction. Wall Motion Rest Echo Findings The inferoseptal wall, the mid inferior, and basal inferolateral segments are hypokinetic. The basal inferior segment is akinetic. All other scored wall segments showed normal motion. Right Ventricle Mildly increased right ventricular cavity size. There is normal right ventricular systolic function. Atria The left atrium is likely dilated. Interatrial shunt cannot be excluded. The right atrium was not well visualized. Aortic Valve There is mild calcification of the aortic valve. There is mild thickening of the aortic valve. There is no aortic valve stenosis. There is no aortic valve regurgitation. Mitral Valve Likely normal mitral valve structure and function. There is trace mitral valve regurgitation. There is no mitral valve stenosis. Pulmonic Valve The pulmonic valve was not well visualized. Tricuspid Valve Likely normal tricuspid valve structure and function. There is trace tricuspid valve regurgitation. The right ventricular systolic pressure is normal. The right ventricular systolic pressure is 27 mmHg. Normal right atrial pressure. There is no evidence of pulmonary hypertension. Great Vessels The pulmonary artery was not well visualized. Small plaque is seen in the sino tubular ridge. Venous The inferior vena cava is normal in size and collapses greater than 50% with inspiration. Pericardium/Pleural There is a small circumferential pericardial effusion. Measurements 2D Linear Measurements IVSd: 1.21 0.6-0.9/0.6-1.0 cm LVIDd: 5.42 3.9-5.3/4.2-5.9 cm LVIDd Index: 2.51 2.4-3.2/2.2-3.1 cm/m2 LVIDs: 3.98 2.0-3.6 cm LVPWd: 1.08 0.7-1.1 cm LA Diam: 4.20 2.7-3.8/3.0-4.0 cm LAIDs Index: 1.94 1.5-2.3 cm/m2 LV Mass: 311.06 67-162/88-224 g LV Mass Index: 144.01 43-95/49-115 g/m2 LVOT Diam: 2.50 3.0+(-)1.3 cm 2D Systolic Function EF 4C: 55.80 >55% EF 2C: 63.80 >55% EF BiP: 58.40 >55% Mitral Valve MV Pk E: 0.60 MV PK A: 0.78 MV Decel Time: 312.00 E/A: 0.80 E'Lateral: 10.30 E'Medial: 5.98 E/E' Med: 10.00 E/E' Lat: 5.80 PHT: 91.00 MVA PHT: 2.42 Decel Gregory: 1.92 Aortic Valve AoV Pk Janes: 1.15 AoV Mn Janes: 0.73 AoV VTI: 0.25 AoV Pk Grad: 5.00 Aov Mn Grad: 3.00 PRECIOUS Cont.VTI: 4.40 LVOT LVOT Pk Janes: 0.91 LVOT Mn Janes: 0.55 LVOT VTI: 0.23 LVOT Pk Grad: 3.00 LVOT Mn Grad: 1.00 LVOT Diam: 2.50 LVOT Area: 4.91 Diastolic Function MV Pk E: 0.60 MV Pk A: 0.78 E/A: 0.80 E'Medial: 5.98 E/E' Med: 10.00 E' Laterial: 10.30 E/E' Lat: 5.80 Right Ventricle TAPSE (mm): 19.40 TVS' Janes: 11.90 Tricuspid Valve TR Pk Janes: 2.44 TR Pk Grad: 24.00 RA Press: 3.00 RVSP: 27.00 Great Vessels Aorta Sinus of Valsalva: 3.73 2.0-3.5 cm Ao Asc: 3.60 2.1-3.4 cm Updated in Other Vendor System with Status of Final Jc Arrington MD electronically signed on 08/30/2023 4:46:55 PM with status of Final
[2023-08-29 09:15] LABS: Alanine Aminotransferase 27 U/L (0-40); Albumin Level 3.9 g/dL (3.5-5.0); Alkaline Phosphatase 112 U/L (39-117); Aspartate Amino Transferase 22 U/L (5-37); Bilirubin Direct 0.3 mg/dL (0.0-0.5); Bilirubin Total 0.5 mg/dL (0.0-1.0); Cholesterol 155 mg/dL (<200); HDL Cholesterol 38 mg/dL (>40); LDL Cholesterol Calculated 105 mg/dL (<100); Total Protein 7.2 g/dL (6.5-8.0); Triglycerides 64 mg/dL (<150)
== END ==
LOC: HO.CARD 08:14
PROVIDERS: PCP Internal Medicine; Visit Provider Internal Medicine
DX: I25.10 Atherosclerotic heart disease of native coronary artery without angina pectoris (principal); I48.0 Paroxysmal atrial fibrillation; E78.5 Hyperlipidemia, unspecified; Z95.1 Presence of aortocoronary bypass graft
CPT/HCPCS: 36415; 80061; 80076; 93242; 93306; Q9957

== ENCOUNTER → 2023-08-29 08:31 | Outpatient (BNV) | payer MEDICARE, SELFPAY | PROVIDERS: PCP Internal Medicine; Visit Provider Internal Medicine Cardiovascular Disease | DX: R00.1 Bradycardia, unspecified (principal) | CPT/HCPCS: 93244; 93306 ==

== ENCOUNTER 2023-10-31 12:16 | Outpatient (AMB) | payer MEDICARE, SELFPAY ==
[2023-10-31 12:49] VITALS: BP 120/66; PULSE 52; BMI 29.9
--- NOTE | 2023-10-31 12:49 | MHC.OFFVIS ---
Vital Signs 10/31/23 12:49 Height 6 ft Weight 220 lb 7.396 oz BMI 29.9 BP 120/66 Blood Pressure Location Lt brachial Position Sitting Pulse 52 Intake Visit Reasons: f/up echo/ holter / labs Intake Note: Follow-up echo, holter and lab result s Pastry Cook Apprentice Required: No Project Executive: Project Executive Present Accompanied by: Spouse Allergies No Known Allergies [No Known Allergies*] Allergy (Verified 08/28/23 12:42) Medication List - Last Reconciled 10/31/23 by Latrell Knox MD amlodipine 5 mg PO DAILY aspirin 81 mg PO DAILY 90 days atorvastatin 80 mg PO DAILY cholecalciferol (vitamin D3) 25 mcg PO DAILY clopidogrel 75 mg PO DAILY ezetimibe (Zetia) 10 mg PO DAILY magnesium 250 mg PO DAILY metoprolol succinate ER 50 mg PO DAILY HPI Comments Details: Cosme returns for follow-up. He was seen in consultation regarding chest pain. Multiple cardiovascular risk factors including hypertension, dyslipidemia. Also history of vascular disease and he underwent abdominal aortic aneurysm repair many years ago at [facility]. Noninvasive workup led to diagnostic catheterization leading to coronary artery bypass surgery. Overall, doing good. No complaints like angina or shortness of breath or in fact anything cardiac sounding. He is spending time with his family in [place] and stays there for the most part. [facility] Medical History (Updated 08/28/23 @ 13:03 by Latrell Knox MD) Atherosclerotic cardiovascular disease ELLA (obstructive sleep apnea) Dyslipidemia Hypertension Surgical History (Updated 08/28/23 @ 13:02 by Latrell Knox MD) S/P CABG (coronary artery bypass graft) Status post AAA (abdominal aortic aneurysm) repair Family History Father Lung cancer Mother No problems noted. Social History Alcohol intake: current Alcohol intake frequency: holidays/special occasions only Patient Tobacco Use Status: Former Tobacco user Quit Date: 2020 Review of Systems Const Denies chills, Denies fatigue, Denies fever(s), Denies frequent falls, Denies weakness, Denies weight gain and Denies weight loss ENT Denies dizziness Card Denies chest pain, Denies leg edema, Denies lightheadedness, Denies palpitations, Denies dyspnea, Denies dyspnea on exertion, Denies orthopnea and Denies other (loss of consciousness) Resp Denies cough, Denies dyspnea and Denies dyspnea on exertion GI Denies hematochezia and Denies change in stool character Musc Denies abnormal gait, Denies muscle weakness, Denies numbness, Denies radiating pain into limb and Denies tingling Neuro Denies abnormal gait, Denies dizziness, Denies frequent falls, Denies numbness, Denies tingling and Denies weakness Endo Denies fatigue and Denies palpitations Physical Exam Vital Signs: Last Vital Signs Pulse 52 10/31/23 12:49 BP 120/66 10/31/23 12:49 BMI result Body Mass Index 29.9 Const General: comfortable and no acute distress Orientation/consciousness: patient oriented x3 HEENT Other: Unremarkable Head: Yes normal to inspection Neck Neck: Yes normal visual inspection Chest Chest palpation & inspection: normal inspection of the chest Resp Auscultation: clear to auscultation bilaterally Cardio Palpation: normal PMI Heart sounds: S1 normal heart sound present, S2 normal heart sound present, no gallops, no murmurs and no rubs GI Palpation (GI): Soft to palpation Back/Spine/Pelvis Other: unremarkable Skin General skin exam: no rashes or lesions noted Neuro General: patient oriented x3 Extrem General: Yes normal to inspection Psych Mental Status: mental status grossly normal Assessment & Plan Assessment & Plan (1) Atherosclerotic cardiovascular disease: Code(s): I25.10 - Atherosclerotic heart disease of [place] coronary artery without angina pectoris Category: Medical Plan: Cardiac catheterization shows multivessel disease including DYNO TECHNICIAN of 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 Status post CABG x3. Stable angina free. Continue aspirin, beta-blockers and statins, Zetia. Recheck lipids. If necessary, consider Repatha. Take Plavix 1 year from time of bypass. (2) S/P CABG (coronary artery bypass graft): Code(s): Z95.1 - Presence of aortocoronary bypass graft Category: Surgical Plan: Seems to have recovered well. (3) PAF (paroxysmal atrial fibrillation): Code(s): I48.0 - Paroxysmal atrial fibrillation Category: Medical Plan: Postoperative atrial fibrillation noted after bypass surgery. Holter without any recurrent atrial fibrillation. (4) Hypertension: Code(s): I10 - Essential (primary) hypertension Category: Medical Plan: Currently on amlodipine. In the past, was also on lisinopril/hydrochlorothiazide but not anymore. Seems stable. Plan Discussed with significant other. Orders: Orders LDL Cholesterol Direct Today E78.2 - Mixed hyperlipidemia, I25.10 - Atherosclerotic heart disease of [place] coronary artery without angina pectoris Lipid Panel Today E78.5 - Hyperlipidemia, unspecified, I25.10 - Atherosclerotic heart disease of [place] coronary artery without angina pectoris Coding Level of Care Code Est Pt Level 4 (29314) Diagnoses Atherosclerotic cardiovascular disease I25.10 S/P CABG (coronary artery bypass graft) Z95.1 PAF (paroxysmal atrial fibrillation) I48.0 Hypertension I10
== END 2023-10-31 13:10 | disposition home or self-care (01) ==
PROVIDERS: PCP Internal Medicine; Visit Provider Internal Medicine
DX: I25.10 Atherosclerotic heart disease of native coronary artery without angina pectoris (principal); Z95.1 Presence of aortocoronary bypass graft; I48.0 Paroxysmal atrial fibrillation; I10 Essential (primary) hypertension
CPT/HCPCS: 99214

== ENCOUNTER → 2023-10-31 12:16 | Outpatient (BNVA) | payer MEDICARE, SELFPAY | PROVIDERS: PCP Internal Medicine; Visit Provider Internal Medicine | DX: I25.10 Atherosclerotic heart disease of native coronary artery without angina pectoris (principal); I48.0 Paroxysmal atrial fibrillation; I10 Essential (primary) hypertension; Z95.1 Presence of aortocoronary bypass graft | CPT/HCPCS: 99212 ==

== ENCOUNTER 2023-11-05 08:46 | Outpatient (REF) | payer MEDICARE, SELFPAY ==
[2023-11-05 11:12] LABS: Cholesterol 98 mg/dL (<200); HDL Cholesterol 33 mg/dL (>40); LDL Cholesterol Calculated 57 mg/dL (<100); Triglycerides 44 mg/dL (<150)
[2023-11-06 21:48] LABS: LDL Cholesterol Direct 55 mg/dL (<100)
== END 2023-11-05 08:47 | disposition home or self-care (01) ==
LOC: HO.LAB 08:46
PROVIDERS: PCP Internal Medicine; Visit Provider Internal Medicine
DX: E78.5 Hyperlipidemia, unspecified (principal); I25.10 Atherosclerotic heart disease of native coronary artery without angina pectoris; E78.2 Mixed hyperlipidemia
CPT/HCPCS: 36415; 80061; 83721

== ENCOUNTER 2023-11-15 13:20 | Outpatient (REF) | payer MEDICARE, SELFPAY ==
--- NOTE | ~2023-11-15 | CT_ITS ---
EXAMINATION: CT CHEST WITHOUT CONTRAST CLINICAL INFORMATION: Follow-up groundglass opacity. COMPARISON: Chest CT 05/30/2023. TECHNIQUE: Multidetector volumetric CT imaging of the chest was done. Axial MIP volume rendering provided. Sagittal and coronal reformatted images were obtained. This CT examination was performed using dose optimization techniques as appropriate, variously including the following: *Automated exposure control *Adjustment of mA and/or kV according to patient size (this includes techniques or standardized protocols for targeted exams where dose is matched to indication/reason for exam; i.e. extremities or head) *Use of iterative reconstruction technique DLP: 240 mGy-cm FINDINGS: LUNGS: 3.1 x 2.6 x 2.6 cm groundglass opacity in the right lower lobe series 7 image 345, previously 2.7 x 2.3 x 2.0 cm when measured similarly. 4 mm groundglass opacity left upper lobe series 7 image 134, stable. 6 mm subpleural nodule right lower lobe series 7 image 480, stable. MEDIASTINUM: No adenopathy. No aortic aneurysm. CORONARY ARTERY CALCIFICATION: CABG. [place] coronary artery calcium. PLEURA: There is no pleural effusion. No pleural mass or thickening. AXILLA: No lymphadenopathy. UPPER ABDOMEN: Simple cysts in the kidneys. No follow-up imaging is recommended. OSSEOUS STRUCTURES: Degenerative changes in the spine. CT/CT chest wo IV con IMPRESSION: Enlarging groundglass opacity in the right lower lobe. This could represent a neoplastic or inflammatory process. Thoracic surgery referral is recommended for possible resection versus percutaneous biopsy.
== END 2023-11-15 13:21 | disposition home or self-care (01) ==
LOC: HO.CT 13:20
PROVIDERS: PCP Internal Medicine; Visit Provider Internal Medicine
DX: R93.89 Abnormal findings on diagnostic imaging of other specified body structures (principal)
CPT/HCPCS: 71250

== ENCOUNTER 2023-11-23 11:50 | Outpatient (REF) | payer MEDICARE, SELFPAY ==
[2023-11-23 11:53] LABS: MANUAL DIFF FLAG NO
[2023-11-23 12:10] LABS: Appearance Urine Clear; Color Urine Yellow; Glucose Urine UA Negative (Negative); Leukocyte Esterase Urine Negative (Negative); Nitrite Urine Negative (Negative); PH 7.5 (5.0-9.0); Urine Blood Negative (Negative); Urine Ketones Negative (Negative); Urine Protein Negative (Neg-Trace)
[2023-11-23 12:20] LABS: Bacteria Urine None Seen (None Seen); Hyaline Casts Urine 0-2 /LPF (0-2); RBC Urine 0-2 /HPF (0-2); Squamous Epithelial Cell Urine 0-2 /HPF (0-2); WBC Urine 0-5 /HPF (0-5)
[2023-11-23 12:24] LABS: Basophils Absolute Auto 0.1 X10*3/uL (0.0-0.2); Basophils Percent Auto 0.6 % (0-2); Eosinophils Absolute Auto 0.4 X10*3/uL (0.0-0.4); Eosinophils Percent Auto 3.5 % (0-4); Hematocrit 46.4 % (42.0-52.0); Imm Gran Abs Auto 0.05 X10*3/uL (0.00-0.03); Imm Gran Pct Auto 0.5 % (0.0-0.4); Lymphocytes Absolute Auto 2.6 X10*3/uL (1.2-4.9); Lymphocytes Percent Auto 25.5 % (20-40); Mean Corpuscular HGB Conc 32.3 g/dl (31.0-36.0); Mean Corpuscular Hemoglobin 30.1 pg (27.0-33.0); Mean Corpuscular Volume 93.2 fL (80.0-98.0); Mean Platelet Volume 10.4 fL (9.4-12.4); Monocytes Absolute Auto 0.8 X10*3/uL (0.1-1.2); Monocytes Percent Auto 7.9 % (2-11); Neutrophils Absolute Auto 6.2 x10*3/uL (2.0-8.3); Platelet Count 260 X10*3/uL (160-400); Red Blood Count 4.98 X10*6/uL (4.60-5.80); Red Cell Distribution Width 16.1 % (11.0-16.0); White Blood Count 10.1 X10*3/uL (4.8-10.8)
[2023-11-23 12:34] LABS: Estimated Average Glucose 126 mg/dL
[2023-11-23 12:43] LABS: Alanine Aminotransferase 42 U/L (0-40); Albumin Level 3.8 g/dL (3.5-5.0); Alkaline Phosphatase 97 U/L (39-117); Anion Gap 10 (12-20); Aspartate Amino Transferase 29 U/L (5-37); Bilirubin Total 0.7 mg/dL (0.0-1.0); Blood Urea Nitrogen 12 mg/dL (9-16); Carbon Dioxide 27 mmol/L (22-29); Chloride 109 mmol/L (96-108); Cholesterol 100 mg/dL (<200); Estimated Glomerular Filt Rate > 60; Glucose Fasting 94 mg/dL (60-99); HDL Cholesterol 35 mg/dL (>40); LDL Cholesterol Calculated 52 mg/dL (<100); Potassium 4.3 mmol/L (3.3-5.1); Sodium 142 mmol/L (135-145); Total Protein 6.9 g/dL (6.5-8.0); Triglycerides 67 mg/dL (<150)
[2023-11-23 12:59] LABS: PSA,Total (Free>4and<10) 0.44 ng/mL (0.00-4.00)
[2023-11-23 13:27] LABS: Creatinine Urine 85.36 mg/dL; Microalbumin Urine < 5.0 mg/L
== END 2023-11-23 11:51 | disposition home or self-care (01) ==
LOC: HO.LNP 11:50
PROVIDERS: Visit Provider Internal Medicine
DX: Z00.00 Encounter for general adult medical examination without abnormal findings (principal); I10 Essential (primary) hypertension; E78.00 Pure hypercholesterolemia, unspecified; R73.03 Prediabetes; Z12.5 Encounter for screening for malignant neoplasm of prostate
CPT/HCPCS: 80053; 80061; 81001; 82043; 82570; 83036; 84153; 85025

== ENCOUNTER 2024-02-07 12:43 | Outpatient (AMB) | payer MEDICARE, SELFPAY ==
--- NOTE | 2024-02-07 13:40 | A.OFFVIS_ITS ---
Vital Signs 02/07/24 13:42 Height 6 ft Weight 221 lb 5.506 oz BMI 30.0 BP 142/66 H Blood Pressure Location Lt brachial Position Sitting Pulse 55 Intake Visit Reasons: Pre-Op Cardiovasc. Assessment Rn School Required: No Allergies No Known Allergies [No Known Allergies*] Allergy (Verified 08/28/23 12:42) Medication List - Last Reconciled 02/07/24 by Latrell Knox MD amlodipine 5 mg PO DAILY aspirin 81 mg PO DAILY 90 days atorvastatin 80 mg PO DAILY cholecalciferol (vitamin D3) 25 mcg PO DAILY clopidogrel 75 mg PO DAILY ezetimibe (Zetia) 10 mg PO DAILY magnesium 250 mg PO DAILY metoprolol succinate ER 50 mg PO DAILY HPI Comments Details: Cosme returns for follow-up regarding coronary artery disease and he also needs preoperative evaluation for lung surgery. To recall, he was seen in the past for chest pain. Many risk factors including hypertension, dyslipidemia, history of smoking. Also has vascular disease and abdominal aortic aneurysm repair many years ago at [facility]. He underwent workup that led to cardiac catheterization followed by bypass surgery. He had this in June 2023. From that end, he is doing fine. No cardiac symptoms. It seems he had a CT scan of chest that had rates suspicion for lung cancer. Because of this, he saw Dr. Joshi and there is plan to operate on him next week. Patient himself seems to be in good spirits. No concerns from cardiac. Still travels frequently to [place]. [facility] Medical History (Updated 02/07/24 @ 13:53 by Latrell Knox MD) Atherosclerotic cardiovascular disease ELLA (obstructive sleep apnea) Dyslipidemia Hypertension Surgical History (Updated 08/28/23 @ 13:02 by Latrell Knox MD) S/P CABG (coronary artery bypass graft) Status post AAA (abdominal aortic aneurysm) repair Family History Father Lung cancer Mother No problems noted. Social History Alcohol intake: current Alcohol intake frequency: holidays/special occasions only Patient Tobacco Use Status: Former Tobacco user Review of Systems Const Denies chills, Denies fatigue, Denies fever(s), Denies weight gain and Denies weight loss ENT Denies dizziness Card Denies chest pain, Denies leg edema, Denies lightheadedness, Denies palpitatio ns, Denies dyspnea on exertion, Denies orthopnea and Denies other Resp Denies cough and Denies dyspnea on exertion GI Denies hematochezia and Denies change in stool character Musc Denies abnormal gait, Denies muscle weakness, Denies numbness, Denies radiating pain into limb and Denies tingling Neuro Denies abnormal gait, Denies dizziness, Denies numbness and Denies tingling Endo Denies fatigue and Denies palpitations Physical Exam Vital Signs: Last Vital Signs Pulse 55 02/07/24 13:42 BP 142/66 H 02/07/24 13:42 BMI result Body Mass Index 30.0 Const General: comfortable and no acute distress Orientation/consciousness: patient oriented x3 HEENT Other: Unremarkable Head: Yes normal to inspection Neck Neck: Yes normal visual inspection Chest Chest palpation & inspection: normal inspection of the chest Resp Auscultation: clear to auscultation bilaterally Cardio Palpation: normal PMI Heart sounds: S1 normal heart sound present, S2 normal heart sound present, no gallops, no murmurs and no rubs GI Palpation (GI): Soft to palpation Back/Spine/Pelvis Other: unremarkable Skin General skin exam: no rashes or lesions noted Neuro General: patient oriented x3 Extrem General: Yes normal to inspection Psych Mental Status: mental status grossly normal Office Procedures EKG Details: EKG with sinus bradycardia at 55/Min; sinus arrhythmias; no significant ST-T changes and otherwise unremarkable. [place] 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 Status post CABG x3. Clinically, no angina. Long-term aspirin. Plavix for 1 year total from time of surgery. Plavix is on hold according to him for the surgery there is upcoming. Otherwise, remains on beta-blockers and statins as well as Zetia. Last LDL 52 mg/dL. (2) S/P CABG (coronary artery bypass graft): Code(s): Z95.1 - Presence of aortocoronary bypass graft Category: Surgical Plan: Seems to have recovered well. (3) PAF (paroxysmal atrial fibrillation): Code(s): I48.0 - Paroxysmal atrial fibrillation Category: Medical Plan: Postoperative atrial fibrillation noted after bypass surgery. Holter without any recurrent atrial fibrillation. (4) Hypertension: Code(s): I10 - Essential (primary) hypertension Category: Medical Plan: Currently on amlodipine. In the past, was also on lisinopril/hydr ochlorothiazide but not anymore. Somewhat borderline today but last time it was normal. Can monitor. (5) Preoperative cardiovascular examination: Code(s): Z01.810 - Encounter for preprocedural cardiovascular examination Category: Medical Plan: Intermediate cardiac risk for surgery. There is risk of perioperative myocardial infarction. We discussed about this today. May proceed as planned. Plan Discussed with significant other. Medications: New clopidogrel 75 mg PO DAILY 90 tabs 1RF Coding Level of Care Code Est Pt Level 4 (81088) Diagnoses Atherosclerotic cardiovascular disease I25.10 S/P CABG (coronary artery bypass graft) Z95.1 PAF (paroxysmal atrial fibrillation) I48.0 Hypertension I10 Preoperative cardiovascular examination Z01.810 CPT Codes EKG - CPT: 00432-[id number], Complete ([id number])
[2024-02-07 13:42] VITALS: BP 142/66; PULSE 55
== END 2024-02-07 14:56 | disposition home or self-care (01) ==
PROVIDERS: PCP Internal Medicine; Visit Provider Internal Medicine
DX: I25.10 Atherosclerotic heart disease of native coronary artery without angina pectoris (principal); Z95.1 Presence of aortocoronary bypass graft; I48.0 Paroxysmal atrial fibrillation; I10 Essential (primary) hypertension; Z01.810 Encounter for preprocedural cardiovascular examination
CPT/HCPCS: 93010; 99214

== ENCOUNTER → 2024-02-07 12:43 | Outpatient (BNVA) | payer MEDICARE, SELFPAY | PROVIDERS: PCP Internal Medicine; Visit Provider Internal Medicine | DX: Z01.810 Encounter for preprocedural cardiovascular examination (principal); I25.10 Atherosclerotic heart disease of native coronary artery without angina pectoris; I48.0 Paroxysmal atrial fibrillation; I10 Essential (primary) hypertension; Z95.1 Presence of aortocoronary bypass graft | CPT/HCPCS: 93005; 99212 ==

== ENCOUNTER 2024-04-29 12:19 | Outpatient (AMB) | payer MEDICARE, SELFPAY ==
--- NOTE | 2024-04-29 12:35 | A.OFFVIS_ITS ---
Vital Signs 04/29/24 12:36 Height 6 ft Weight 220 lb 7.396 oz BMI 29.9 BP 118/60 Blood Pressure Location Lt brachial Position Sitting Pulse 68 Pulse Source Pulse Oximeter Intake Visit Reasons: 6 mth f/up Allergies No Known Allergies [No Known Allergies*] Allergy (Verified 08/28/23 12:42) Medication List - Last Reconciled 04/29/24 by Latrell Knox MD amlodipine 5 mg PO DAILY aspirin 81 mg PO DAILY 90 days atorvastatin 80 mg PO DAILY cholecalciferol (vitamin D3) 25 mcg PO DAILY clopidogrel 75 mg PO DAILY ezetimibe (Zetia) 10 mg PO DAILY 90 days magnesium 250 mg PO DAILY metoprolol succinate ER 50 mg PO DAILY HPI Comments Details: Cosme returns for follow-up regarding coronary artery disease. To recall, he was seen in the past for chest pain. Many risk factors including hypertension, dyslipidemia, history of smoking. Also has vascular disease and abdominal aortic aneurysm repair many years ago at [facility]. He underwent workup that led to cardiac catheterization followed by bypass surgery. He had this in June 2023. After that, he also had lung cancer diagnosis and per surgery note, underwent right lower lobe segmentectomy/mediastinal lymphadenectomy. It seems he did well. Overall, in spite of all the medical issues, getting along fine. No cardiac symptoms. [facility] Medical History (Updated 04/29/24 @ 13:01 by Latrell Knox MD) Lung cancer Atherosclerotic cardiovascular disease ELLA (obstructive sleep apnea) Dyslipidemia Hypertension Surgical History (Updated 08/28/23 @ 13:02 by Latrell Knox MD) S/P CABG (coronary artery bypass graft) Status post AAA (abdominal aortic aneurysm) repair Family History Father Lung cancer Mother No problems noted. Social History Alcohol intake: current Alcohol intake frequency: holidays/special occasions only Patient Tobacco Use Status: Former Tobacco user Review of Systems Const Denies weakness ENT Denies dizziness Card Denies chest pain, Denies chest pain with activity, Denies syncope, Denies rapid heart rate, Denies pedal edema, Denies edema, Denies leg edema, Denies lightheadedness, Denies palpitations, Denies dyspnea, Denies dyspnea on exertion and Denies orthopnea Resp Denies cough, Denies dyspnea and Denies dyspnea on exertion GI Denies hematochezia and Denies change in stool character Musc Denies abnormal gait, Denies muscle cramps, Denies muscle weakness, Denies numbness, Denies radiating pain into limb and Denies tingling Neuro Denies abnormal gait, Denies dizziness, Denies syncope, Denies numbness, Denies tingling and Denies weakness Endo Denies palpitations Physical Exam Vital Signs: Last Vital Signs Pulse 68 04/29/24 12:36 BP 118/60 04/29/24 12:36 BMI result Body Mass Index 29.9 Const General: comfortable and no acute distress Orientation/consciousness: patient oriented x3 HEENT Other: Unremarkable Head: Yes normal to inspection Neck Neck: Yes normal visual inspection Chest Chest palpation & inspection: normal inspection of the chest Resp Auscultation: clear to auscultation bilaterally Cardio Palpation: normal PMI Heart sounds: S1 normal heart sound present, S2 normal heart sound present, no gallops, no murmurs and no rubs GI Palpation (GI): Soft to palpation Back/Spine/Pelvis Other: unremarkable Skin General skin exam: no rashes or lesions noted Neuro General: patient oriented x3 Extrem General: Yes normal to inspection Psych Mental Status: mental status grossly normal Assessment & Plan Assessment & Plan (1) Atherosclerotic cardiovascular disease: Code(s): I25.10 - Atherosclerotic heart disease of [place] coronary artery without angina pectoris Category: Medical Plan: Cardiac catheterization shows multivessel disease including CRIMPER ASSEMBLER of 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 Status post CABG x3. Clinically, no angina. Continue long-term aspirin. Plavix can be stopped at the 1 year [place] from time of surgery. On beta-blockers, statins, Zetia. Cholesterol is well controlled. (2) S/P CABG (coronary artery bypass graft): Code(s): Z95.1 - Presence of aortocoronary bypass graft Category: Surgical Plan: Recovered completely. (3) PAF (paroxysmal atrial fibrillation): Code(s): I48.0 - Paroxysmal atrial fibrillation Category: Medical Plan: Postoperative atrial fibrillation noted after bypass surgery. Holter without any recurrent atrial fibrillation. (4) Hypertension: Code(s): I10 - Essential (primary) hypertension Category: Medical Plan: Currently on amlodipine. In the past, was also on lisinopril/hydrochlorothiazide but not anymore. Overall stable. Plan Discussed with significant other. Medications: Discontinued clopidogrel Discontinued Reason: Doctor's Order 75 mg PO DAILY 90 tabs 1RF Coding Level of Care Code Est Pt Level 4 (28328) Diagnoses Atherosclerotic cardiovascular disease I25.10 S/P CABG (coronary artery bypass graft) Z95.1 PAF (paroxysmal atrial fibrillation) I48.0 Hypertension I10
[2024-04-29 12:36] VITALS: BP 118/60; PULSE 68; BMI 29.9
== END 2024-04-29 13:01 | disposition home or self-care (01) ==
PROVIDERS: PCP Internal Medicine; Visit Provider Internal Medicine
DX: I25.10 Atherosclerotic heart disease of native coronary artery without angina pectoris (principal); Z95.1 Presence of aortocoronary bypass graft; I48.0 Paroxysmal atrial fibrillation; I10 Essential (primary) hypertension
CPT/HCPCS: 99214

== ENCOUNTER → 2024-04-29 12:19 | Outpatient (BNVA) | payer MEDICARE, SELFPAY | PROVIDERS: PCP Internal Medicine; Visit Provider Internal Medicine | DX: I25.10 Atherosclerotic heart disease of native coronary artery without angina pectoris (principal); I10 Essential (primary) hypertension; I48.0 Paroxysmal atrial fibrillation; Z95.1 Presence of aortocoronary bypass graft | CPT/HCPCS: 99212 ==

== ENCOUNTER 2024-05-06 11:09 | Outpatient (REF) | payer MEDICARE, SELFPAY ==
[2024-05-06 12:08] LABS: Alanine Aminotransferase 57 U/L (0-40); Alkaline Phosphatase 108 U/L (39-117); Aspartate Amino Transferase 40 U/L (5-37); Bilirubin Direct 0.3 mg/dL (0.0-0.5); Bilirubin Total 0.9 mg/dL (0.0-1.0); Cholesterol 113 mg/dL (<200); HDL Cholesterol 33 mg/dL (>40); LDL Cholesterol Calculated 64 mg/dL (<100); Total Protein 6.9 g/dL (6.5-8.0); Triglycerides 81 mg/dL (<150)
[2024-05-06 12:56] LABS: Reflex LDLD? No
== END 2024-05-06 11:10 | disposition home or self-care (01) ==
LOC: HO.LNP 11:09
PROVIDERS: Visit Provider Internal Medicine
DX: E78.00 Pure hypercholesterolemia, unspecified (principal)
CPT/HCPCS: 80061; 80076

== ENCOUNTER 2024-11-27 10:47 | Outpatient (REF) | payer MEDICARE, SELFPAY ==
[2024-11-27 10:51] LABS: MANUAL DIFF FLAG NO
[2024-11-27 11:01] LABS: Basophils Absolute Auto 0.1 X10*3/uL (0.0-0.2); Basophils Percent Auto 0.4 % (0-2); Eosinophils Absolute Auto 0.3 X10*3/uL (0.0-0.4); Eosinophils Percent Auto 2.7 % (0-4); Hematocrit 45.3 % (42.0-52.0); Hemoglobin 14.8 g/dl (14.0-18.0); Imm Gran Abs Auto 0.16 X10*3/uL (0.00-0.03); Imm Gran Pct Auto 1.3 % (0.0-0.4); Lymphocytes Absolute Auto 3.3 X10*3/uL (1.2-4.9); Lymphocytes Percent Auto 27.3 % (20-40); Mean Corpuscular HGB Conc 32.7 g/dl (31.0-36.0); Mean Corpuscular Hemoglobin 30.4 pg (27.0-33.0); Mean Platelet Volume 10.1 fL (9.4-12.4); Monocytes Absolute Auto 0.8 X10*3/uL (0.1-1.2); Monocytes Percent Auto 6.7 % (2-11); Neutrophils Absolute Auto 7.4 x10*3/uL (2.0-8.3); Neutrophils Percent Auto 61.6 % (45-73); Platelet Count 351 X10*3/uL (160-400); Red Blood Count 4.87 X10*6/uL (4.60-5.80); Red Cell Distribution Width 14.3 % (11.0-16.0); White Blood Count 12.1 X10*3/uL (4.8-10.8)
[2024-11-27 11:11] LABS: Estimated Average Glucose 123 mg/dL; Hemoglobin A1c % 5.9 % (<6.0); Total Hemoglobin (HGBA1C) 3881.5518 umol/L
--- OUTSIDE RECORDS SUMMARY | 2024-11-27 11:31 | XMS_ITS | Encounter Summary ---
Author Organization [employer] Address [address] [place] [address] 7 [place] [address] Care Team Providers Care Reduction Plant Supervisor Name Role Phone Tyra Menjivar Primary Care Provider Encounter Details Date Type Department Care Team (Latest Contact Info) Description 04/21/2020 Abstract [facility] CONVERSIONS Dental, Provider, DDS Social History Tobacco Use Types Packs/Day Years Used Date Smoking Tobacco: Never Assessed Sex and Gender Information Value Date Recorded Sex Assigned at Not on file Legal Sex Male 8:39 PM EST Gender Identity Male 05/19/2022 8:39 PM EST Sexual Orientation Don't know 05/19/2022 8: 39 PM EST documented as of this encounter Plan of Treatment Not on file documented as of this encounter Visit Diagnoses Not on filedocumented in this encounter Care Teams Reduction Plant Supervisor Relationship Specialty Start Date End Date Tyra Menjivar LLD [address] [place] [id number] PCP - General Dentist 05/05/22 documented as of this encounter
--- OUTSIDE RECORDS SUMMARY | 2024-11-27 11:31 | XMS_ITS | Clinical Summary ---
Author Organization [facility] Address [address] [place] [address] Care Team Providers Care Senior Naval Parachutist Name Role Phone Brenden Latif MD Primary Care Provider [phone] Allergies No known active allergies Medications Medication Sig Dispensed Refills Start Date End Date Status aspirin EC 81 MG tablet Take 1 tablet (81 mg total) by mouth daily. 0 Active atorvastatin (LIPITOR) tablet 80 mg Take 1 tablet (80 mg total) by mouth daily. 0 Active Cholecalciferol (D3 5000) 125 MCG (5000 UT) capsule Take 1 capsule (5,000 Units total) by mouth daily. 0 Active clopidogrel (PLAVIX) 75 MG tablet Take 1 tablet (75 mg total) by mouth daily. 0 Active ezetimibe (ZETIA) tablet 10 mg Take 1 tablet (10 mg total) by mouth daily. 0 Active Magnesium 200 MG TABS Take by mouth. 0 Active metoprolol succinate (TOPROL-XL) 24 hr tablet 50 mg Take by mouth daily. 0 Active amLODIPine (NORVASC) tablet 5 mg Take 1 tablet (5 mg total) by mouth daily. 0 Active Active Problems Problem Noted Date Diagnosed Date History of AAA (abdominal aortic aneurysm) repai r 01/28/2024 03/16/2024 Hx of CABG 01/28/2024 03/16/2024 Family History Medical History Relation Name Comments Lung cancer Father Relation Name Status Comments Father Mother Social History Tobacco Use Types Packs/Day Years Used Date Smoking Tobacco: Former Cigarettes 1 15 Q uit: 2021 Smokeless Tobacco: Never Tobacco Cessation:Counseling Given: Not Answered Alcohol Use Standard Drinks/Week Comments Not Currently 0 (1 standard drink = 0.6 oz pur e alcohol) Sex and Gender Information Value Date Recorded Sex Assigned at Not on file Gender Identity Not on file Sexual Orientation Not on file Job Start Date Occupation Industry Not on file Not on file Not on file Last Filed Vital Signs Vital Sign Reading Time Taken Comments Blood Pressure 162/67 03/06/2024 3:12 PM EDT Pulse 54 03/06/2024 3:12 PM EDT Temperature 37.1 ??C (98.8 ??F) 03/06/2024 3:12 PM ED T Respiratory Rate - - Oxygen Saturation 99% 03/06/2024 3:12 PM EDT Inhaled Oxygen Concentration - - Weight 99.6 kg (219 lb 9.6 oz) 03/06/2024 3:12 P M EDT Height 182.9 cm (6') 03/06/2024 3:12 PM EDT Body Mass Index 29.78 03/06/2024 3:12 PM EDT Plan of Treatment Health Maintenance Due Date Last Done Comments Hepatitis C Screening 1950 COVID-19 Vaccine (#1) 1954 Pneumococcal Vaccine (1 of 2 - PCV) 11/30/1955 Depression Screening 1961 Preventative Health Evaluation 11/30/1967 DTap / Tdap / Td (1 - Tdap) 1968 Shingrix-Zoster Vaccine (1 of 2) 1968 Colon Cancer Screening (Colonoscopy) 1994 Fall Risk Assessment 2014 Influenza Vaccine (#1) 2024 RSV Adult > 60+ Yrs or Pregn ant (1 - 1-dose 75+ series) 2024 Hepatitis B Vaccines Aged Out No long er eligible based on patient's age to complete this topic RSV Ped < 20 months Aged Out No longe r eligible based on patient's age to complete this topic Care Teams Senior Naval Parachutist Relationship Specialty Start Date End Date Brenden Latif MD [address] [place] [address] Drive [address] [place] [address] PCP - General Internal Medicine 02/29/24
--- OUTSIDE RECORDS SUMMARY | 2024-11-27 11:31 | XMS_ITS | Encounter Summary ---
Author Organization [facility] Address [address] [place] [address] Care Team Providers Care Occupational Therapist Assistant Name Role Phone Brenden Latif MD Primary Care Provider [phone] Encounter Details Date Type Department Care Team Description 03/14/2024 Social Work [facility] [address] [place] [address] Jaime Aguirre, [facility] [place] Social History Tobacco Use Types Packs/Day Years Used Date Smoking Tobacco: Former Cigarettes 1 15 Q uit: 2021 Smokeless Tobacco: Never Alcohol Use Standard Drinks/Week Comments Not Currently 0 (1 standard drink = 0.6 oz pur e alcohol) Sex and Gender Information Value Date Recorded Sex Assigned at Not on file Gender Identity Not on file Sexual Orientation Not on file Job Start Date Occupation Industry Not on file Not on file Not on file documented as of this encounter Plan of Treatment Not on file documented as of this encounter Visit Diagnoses Not on filedocumented in this encounter Care Teams Occupational Therapist Assistant Relationship Specialty Start Date End Date Brenden Latif MD [address] [place] [phone] PCP - General Internal Medicine 02/29/24 documented as of this encounter
--- OUTSIDE RECORDS SUMMARY | 2024-11-27 11:31 | XMS_ITS ---
Author Organization Brenden Latif MD Address [address] [place] [phone] Care Team Providers Care Credit Reporting Clerk Name Role Phone Brenden Latif Primary Care Provider Allergies No Known Allergies REASON FOR VISIT 6 MO F/U Medications Medication SIG (Take, Route, Frequency, Duration) Notes Start Date End Date Status Magnesium 400 MG as directed Orally Not-Taking Nizoral 2 % as directed External ly daily for 30 days Not-Taking Aspir-81 81 MG 1 tablet Orally Once a day Active Amoxicillin 500 MG 4 capsule Orally one hour before dentist for 3 Active Clopidogrel Bisulfate 75 MG 1 tablet Orally Once a day for 30 day(s) Active amLODIPine Besylate 5 MG TAKE 1 TABLET B Y MOUTH EVERY DAY Active Ezetimibe 10 MG 1 tablet Orally Once a day Active Atorvastatin Calcium 80 MG TAKE 1 TABLET BY MOUTH DAILY Active Metoprolol Tartrate 50 MG 1 tablet with food Orally Twice a day Active Vitamin D3 125 MCG (5000 UT) 1 capsule Orally Once a day for 30 day(s) Active Problems Problem Type SNOMED Code ICD Code Onset Dates Problem Status W/U Status Risk Notes Problem [id number] History of lung cancer (Z85.118) Active confirmed Vital Signs Blood pressure systolic 132 mm Hg 05/13/20 24 Blood pressure diastolic 70 mm Hg 024 Height 61 in 05/13/2024 Weight 224 lbs 05/13/2024 BMI 42.32 kg/m2 05/13/2024 weight is up 9 pounds since 12-13-23 Encounters Encounter Location Date Provider Diagnosis Brenden Latif MD [address] [place], [place] [id number] 05/13/2024 Brenden Latif History of lung canc er Z85.118 ; ELLA (obstructive sleep apnea) G47.33 ; 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 (ICD-10 - I25.118) not having any symptoms 05/13/2024 Essential hypertensi on (ICD-10 - I10) stable, will continue current regiment 05/13/2024 Pure hypercholesterolemia (ICD-10 - E78.00) labs reviewed, stable, will contiue current regiment Plan Of Treatment Medication Medication Name Sig Start Date Stop Date Notes amLODIPine Besylate 5 MG TAKE 1 TABLET B Y MOUTH EVERY DAY Ezetimibe 10 MG 1 tablet Orally Once a day Atorvastatin Calcium 80 MG TAKE 1 TABLET BY MOUTH DAILY Metoprolol Tartrate 50 MG 1 tablet with food Orally Twice a day Treatment Notes Assessment Notes History of lung cancer had surgery at [facility]. 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 not having any symptoms Essential hypertension stable, will cont inue current regiment Pure hypercholesterolemia labs reviewed, stable, will contiue current regiment Next Appt Details Follow Up: 6 Months, Reason: Provider Name:Brenden South ier, 12/04/2024 11:00:00 AM, [address] [place] [address], [facility], [place], [place], [phone], Provider Name:Brenden South ier, 05/11/2025 08:00:00 AM, [address] [place] [address], [address] [facility], [place], [place], [phone], Provider Name:Brenden South ier, 05/18/2025 01:30:00 PM, [address] [place] [address], [place] [address], [place], [place], [phone], Progress Notes * Aidan MOYA MD (Ryszard) OB:1950 (73 yo M)Acc No.[id number]:05/13/2024 Progress Notes Patient:?Aidan Moya (Carlos Browne Provider:?Brenden Latif MD :1950???Age:73 Y???Sex:Male Ulisses e:05/13/2024 Address: [address] [id number] Subjective: * Chief Complaints: * ???6 MO F/U * HPI: ???Symptom(s):? patient is a 73 yo male here for 6 month follow up visit. * ROS:?General/Constitutional:?Patient denies?fatigue , headache.?Change in appetite?denies.?Denies?Chills,?denies.?Denies?Fatigue.?Denies?Fever,?denies.?De nies?Headache.?Ophthalmologic:?Blurred vision?denies.?Discharge?denies.?Pain?denies.?ENT:?Patient denies?decreased sense of smell , any loss of taste , sore throat.?Decreased hearing?denies.?Denies?Sore throat,?denies.?Swollen glands?denies.?Endocrine:?Cold intolerance?denies.?Excessive thirst?denies.?Heat intolerance?denies.?Weight loss?denies.?Respiratory:?Denies?Cough,?denies.?Denies?Shortness of breath at rest,?denies.?Denies?Shortness of breath with exertion,?denies.?Wheezing?denies.?Cardiovascular:?Denies?Chest pain at rest,?denies.?Denies?Chest pain with exertion,?denies.?Denies?Dizziness.?Irregular heartbeat?denies.?Denies?Palpitations.?Denies?Shortness of breath,?denies.?Gastrointestinal:?Abdominal pain?denies.?Change in bowel habits?denies.?Denies?Diarrhea,?denies.?Denies?Nausea,?denies.?Rectal bleeding?denies.?Vomiting?denies .?Genitourinary:?Blood in urine?denies.?Difficulty urinating?denies.?Frequent urination?denies.?Musculoskeletal:?Patient denies?muscle aches.?Painful joints?denies.?Weakness?denies.?Peripheral Vascular:?Patient denies?red and blue toes.?Skin:?Dry skin?denies.?Itching?denies.?Denies?Mole(s),? changes in moles, new moles or any lesions of concern.?Denies?Photosensitivity.?Rash?denies.?Neurologic:?Dizziness?denies.?Fainting?denies.?Headache?denies.? * Medical History:? * Surgical History:? * Hospitalization/Major Diagno stic Procedure:? * Medications:?TakingVitamin D 3 125 MCG (5000 UT) Capsule 1 capsule Orally Once a dayClopidogrel Bisulfate 75 MG Tablet 1 tablet Orally Once a dayAspir-81 81 MG Tablet Delayed Release 1 tablet Orally Once a dayAmoxicillin 500 MG Capsule 4 capsule Orally one hour before dentistEzetimibe 10 MG Tablet 1 tablet Orally Once a dayMetoprolol Tartrate 50 MG Tablet 1 tablet with food Orally Twice a dayAtorvastatin Calcium 80 MG Tablet TAKE 1 TABLET BY MOUTH DAILY amLODIPine Besylate 5 MG Tablet TAKE 1 TABLET BY MOUTH EVERY DAY Taking Vitamin D3 125 MCG (5000 UT) Capsule 1 capsule Orally Once a dayTaking Clopidogrel Bisulfate 75 MG Tablet 1 tablet Orally Once a dayTaking Aspir-81 81 MG Tablet Delayed Release 1 tablet Orally Once a dayTaking Amoxicillin 500 MG Capsule 4 capsule Orally one hour before dentistTaking Ezetimibe 10 MG Tablet 1 tablet Orally Once a dayTaking Metoprolol Tartrate 50 MG Tablet 1 tablet with food Orally Twice a dayTaking Atorvastatin Calcium 80 MG Tablet TAKE 1 TABLET BY MOUTH DAILY Taking amLODIPine Besylate 5 MG Tablet TAKE 1 TABLET BY MOUTH EVERY DAY Not-Taking/PRNMagnesium 400 MG Tablet as directed Orally Nizoral 2 % Shampoo as directed Externally dailyMedication List reviewed and reconciled with the patientNot-Taking/PRN Magnesium 400 MG Tablet as directed Orally Not-Taking/PRN Nizoral 2 % Shampoo as directed Externally dailyMedication List reviewed and reconciled with the patient * Allergies:?N.K.D.A.yes[Aller gies Verified] Objective: * Vitals:?Ht: 61, Wt:224, BMI: 42.32, BP:132/70 weight is up 9 pounds since 12-13-23. * Examination: ???General Examination: ?GENERAL APPEARANCE:?well developed, well nourished, in no acute distress.?HEAD:?normocephalic, atraumatic.?EYES:?pupils equal, round, reactive to light and accommodation, sclera non-icteric.?EARS:?normal.?ORAL CAVITY:?mucosa moist.?THROAT:?clear.?NECK/THYROID:?neck supple, full range of motion, no cervical lymphadenopathy, no bruits.?SKIN:?warm and dry, no suspicious lesions.?HEART:?regular rate and rhythm, S1, S2 normal, no murmurs.?LUNGS:?clear to auscultation bilaterally.?ABDOMEN:?soft, nontender, nondistended, bowel sounds present, normal, no organomegaly , no masses palpable.?RECTAL EXAM:?normal tone, no external hemorrhoids, no masses palpable, prostate normal, stool guaiac negative.?MALE GENITOURINARY:?circumcised , testes descended bilaterally , no testicular mass.?EXTREMITIES:?no clubbing, cyanosis, or edema.?NEUROLOGIC:?nonfocal, motor strength normal upper and lower extremities, sensory exam intact.? 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 Plan: * Treatment: 2.?ELLA (obstructive sleep ap hung)? Notes: using his cpap nightly?? 3.?Coronary artery disease o f chilkat artery of chilkat heart with stable angina pectoris? Notes: not having any symptoms?? 4.?Essential hypertension? Continue Metoprolol Tartrate Tablet, 50 MG, 1 tablet with food, Orally, Twice a day;?Continue amLODIPine Besylate Tablet, 5 MG, TAKE 1 TABLET BY MOUTH EVERY DAY.?? Notes: stable, will continue current regiment?? 5.?Pure hypercholesterolemia ? Continue Ezetimibe Tablet, 10 MG, 1 tablet, Orally, Once a day;?Continue Atorvastatin Calcium Tablet, 80 MG, TAKE 1 TABLET BY MOUTH DAILY.?? Notes: labs reviewed, stable, will contiue current regiment?? * Procedure Codes:? * Follow Up:?6 Months * * Sign off status: Completed true * Provider:?Brenden Latif MD Date:?1 07/13/2023 Generated for John schuster/Jcarlos/Karrismitting on:?11/27/2024 11:31 AM EDT History and Physical Notes * HPI (History of Present Illness) Category Sub-Category Detail Notes Category Not es Symptom(s) patient is a 73 yo male here for 6 month follow up visit. Examination Category Sub-Category Detail Notes Category Not es General Examination GENERAL APPEARANCE: well dev eloped, well nourished, in no acute distress HEAD: normocephalic, atrau matic EYES: pupils equal, round, reactive to light and accommodation, sclera non-icteric EARS: normal THROAT: clear NECK/THYROID: neck supple, full ra nge of motion, no cervical lymphadenopathy, no bruits HEART: regular rate and rhy thm, S1, S2 normal, no murmurs LUNGS: clear to auscultatio n bilaterally ABDOMEN: soft, nontender, non distended, bowel sounds present, normal, no organomegaly , no masses palpable NEUROLOGIC: nonfocal, motor stre ngth normal upper and lower extremities, sensory exam intact SKIN: warm and dry, no max picious lesions EXTREMITIES: no clubbing, cyanosi s, or edema MALE GENITOURINARY: circumcised , testes descended bilaterally , no testicular mass RECTAL EXAM: normal tone, no exte rnal hemorrhoids, no masses palpable, prostate normal, stool guaiac negative ORAL CAVITY: mucosa moist
--- OUTSIDE RECORDS SUMMARY | 2024-11-27 11:31 | XMS_ITS | Clinical Summary ---
Author Organization [facility] Address [address] [place] [address] [address] [place] [address] Care Team Providers Care Meat Blender Name Role Phone Tyra Menjivar Primary Care Provider Social History Tobacco Use Types Packs/Day Years Used Date Smoking Tobacco: Never Assessed Sex and Gender Information Value Date Recorded Sex Assigned at Not on file Legal Sex Male 8:39 PM EST Gender Identity Male 05/19/2022 8:39 PM EST Sexual Orientation Don't know 05/19/2022 8: 39 PM EST Plan of Treatment Health Maintenance Due Date Last Done Comments CT Colonography 1949 Colonoscopy 1949 Colorectal Cancer Screening 1949 Depression Screening 1949 FIT DNA/Cologuard 1949 FIT 1949 FOBT 1949 Lipid Panel 1949 Sigmoidoscopy 1949 Alcohol/Substance Use Screening 1961 Tobacco Screening 1961 DTaP/Tdap/Td Vaccines (1 - Tdap) 1968 Pneumococcal Vaccine: 50+ Ye ars (1 of 1 - PCV) 11/30/1999 Zoster Vaccines (1 of 2) 11/30/1999 COVID-19 Vaccine ( - 2023-2 5 season) 2024 Influenza Vaccine (#1) 2024 RSV Patients and Pa tients Aged 60 years or older (1 - 1-dose 75+ series) 2024 HIB Vaccines Aged Out No longer eligi ble based on patient's age to complete this topic HPV Vaccines Aged Out No longer eligi ble based on patient's age to complete this topic Hepatitis A Vaccines Aged Out No long er eligible based on patient's age to complete this topic Hepatitis B Vaccines Aged Out No long er eligible based on patient's age to complete this topic IPV Vaccines Aged Out No longer eligi ble based on patient's age to complete this topic Meningococcal B Vaccine Aged Out No l onger eligible based on patient's age to complete this topic Meningococcal Vaccine Aged Out No umer carmen eligible based on patient's age to complete this topic RSV under 20 months Aged Out No longe r eligible based on patient's age to complete this topic Rotavirus Vaccines Aged Out No longer eligible based on patient's age to complete this topic Care Teams Meat Blender Relationship Specialty Start Date End Date Tyra Menjivar LLD [address] [place] [id number] PCP - General Dentist 05/05/22
--- OUTSIDE RECORDS SUMMARY | 2024-11-27 11:31 | XMS_ITS | Patient Health Record ---
Author Organization Brenden Latif MD Address [address] [place], [place] [id number] Care Team Providers Care Logging Crew Foreman Name Role Phone Brenden Latif Primary Care Provider [phone] Allergies No Known Allergies Results Component Value Reference Range Notes Liver Panel Reviewed date:05/06/2024 04:26:09 PM Interpretation: Performing Lab:[facility], [address] [place] [phone] Notes/Report: Bilirubin Total 0.9 0.0-1.0 mg/dL Bilirubin Direct 0.3 0.0-0.5 mg/dL Aspartate Amino Transferase 40 5-37 U/L Alanine Aminotransferase 57 0-40 U/L Total Protein 6.9 6.5-8.0 g/dL Albumin Level 4.0 3.5-5.0 g/dL Alkaline Phosphatase 108 39-117 U/L Lipid Panel with Reflex Reviewed date:05/06/2024 04:25:36 PM Interpretation: Performing Lab:[facility], [address] [place] [phone] Notes/Report: Triglycerides 81 <150 mg/dL Desirable Triglyceride: less than 150 mg/dL Borderline High Triglyceride 150-199 mg/dL High Triglyceride: 200-499 mg/dL Very High Triglyceride: greater than or equal to 5OO mg/dL Cholesterol 113 <200 mg/dL Desirable Cholesterol: less than 200 mg/dL Borderline High Cholesterol: 200-239 mg/dL High Cholesterol: greater than 239 mg/dL LDL Cholesterol Calculated 64 <100 mg/dL Desirable LDL: less than 100 mg/dL Near Optimal/Above Optimal LDL: 110-129 mg/dL Borderline High LDL: 130-159 mg/dL High LDL: 160-189 mg/dL Very High LDL: greater than or equal to 190 mg/dL HDL Cholesterol 33 >40 mg/dL Desirable HDL: greater than 40 mg/dL Note: This HDL assay may give artificially low results in patients with liver disease. Dayo Napier Reviewed date:05/06/2024 04:23:13 PM Interpretation: Performing Lab:[facility], [address] [place] [phone] Notes/Report: Dayo Napier See Note Specimen held untested for 24 hours; Call to request Chemistry testing. Reason For Referral Reason lung mass Diagnosis 1 Lung mass (R91.8) Referral Organization Brenden Latif MD Referring Provider First Name Brenden Referring Provider Last Name Bhavya Referring Provider Speciality Internal M edicine Referred Provider Aziza FLORES Referred Provider Specialty Thoracic Arielle itz General Notes Silvana Tamez 09:45:25 AM EDT > info faxed , Silvana Tamez 12/20/2023 12:48:50 PM EDT > was told to refaxed info , Silvana Tamez 12/31/2023 11:43:20 AM EDT > was told to fax to [facility] [phone] Annette 01/14/2024 10:42:05 AM EDT > info refaxed per fax request Dashawn Annette 01/17/2024 02:52:07 PM EDT > patient is aware of apptDashawn Annette 10/20/2024 12:40:53 PM > had lung surgery on 8-5-24 Referral Priority Routine Referral Appointment Date 01/28/2024 Medications Medication SIG (Take, Route, Frequency, Duration) Notes Start Date End Date Status amLODIPine Besylate 5 MG TAKE 1 TABLET B Y MOUTH EVERY DAY Active Magnesium 400 MG as directed Orally Not-Taking Nizoral 2 % as directed External ly daily for 30 days Not-Taking Aspir-81 81 MG 1 tablet Orally Once a day Active Ezetimibe 10 MG 1 tablet Orally Once a day Active Amoxicillin 500 MG 4 capsule Orally one hour before dentist for 3 Active Atorvastatin Calcium 80 MG TAKE 1 TABLET BY MOUTH DAILY Active Metoprolol Tartrate 50 MG 1 tablet with food Orally Twice a day Active Vitamin D3 125 MCG (5000 UT) 1 capsule Orally Once a day for 30 day(s) Active Clopidogrel Bisulfate 75 MG 1 tablet Orally Once a day for 30 day(s) Active Immunizations Vaccine Route Administration Date Status Comme nts Flu Vaccine IM Intramuscular 03/27/2011 Administered Fluarix Quadrivalent IM Intramuscular 03/17/2014 Administe red Fluarix Quadrivalent IM Intramuscular 04/05/2015 [facility] Fluarix Quadrivalent IM Intramuscular 05/23/2016 [facility] red PPSV23 (Pnemovax) IM Intramuscular 05/25/2016 Administered Fluarix Quadrivalent IM [facility]amuscular [facility] Unknown 08/13/2017 Administered [facility] Prevnar 13 IM Intramuscular 09/11/2017 Administered Fluarix Quadrivalent Unknown 06/11/2018 Administered Ri te Aide Fluarix Quadrivalent IM Intramuscular 04/07/2019 Administe red Covid Vaccine Unknown 09/07/2020 Administered Pfizer Covid Vaccine Unknown 09/28/2020 Administered Pfizer Influenza High Dose IM Intramuscular 04/07/2021 Administer ed Influenza High Dose IM Intramuscular 04/11/2022 Administer ed Fluarix Quadrivalent Unknown 05/03/2023 Refused Fluarix Quadrivalent Unknown 05/08/2023 Refused Flu Vaccine Unknown 03/17/2014 Pending Social History Tobacco Use: Social History Observation Description Date Details (start date - stop date) Former Smoker NA - NA Tobacco Use/Smoking Question Answer Notes Patient is a former smoker How long has it been since y ou last smoked? 5-10 years Additional Findings: Tobacco Non-User Fo rmer smoker, currently using no form of tobacco Alcohol Screen Question Answer Notes Did you have a drink contain ing alcohol in the past year? Yes How often did you have a dri nk containing alcohol in the past year? Monthly or less (1 point) How many drinks did you have on a typical day when you were drinking in the past year? 1 or 2 drinks (0 point) How often did you have 6 or more drinks on one occasion in the past year? Never (0 point) Points 1 Interpretation Negative Problems Problem Type SNOMED Code ICD Code Onset Dates Problem Status W/U Status Risk Notes Problem 46028267 Essential hypert ension (I10) Active confirmed Problem 502609546 Low HDL (under 4 0) (E78.6) Active confirmed Problem Solitary nodule of lung (253067388) Lung nodule (R91.1) Active confirmed Problem 521850658 Morbid obesity d ue to excess calories (E66.01) Active confirmed Problem 057165979 Numbness of left foot (R20.8) Active confirmed Problem 239402913 Leukocytosis, unspecified type (D72.829) Active confirmed Problem 92996073 Abdominal aortic aneurysm (AAA) without rupture (I71.4) Active confirmed Problem 175208462 Prediabetes (R73.03) Active confirmed Problem 335947231 Pure hypercholesterolemia (E78.00) Active confirmed Problem 23020807 Coronary artery disease of [place] artery of [place] heart with stable angina pectoris (I25.118) Active confirmed Problem 43278441 ELLA (obstructive sleep apnea) (G47.33) Active confirmed Problem 0133884447084 Adenomatous rect al polyp (D12.8) Active confirmed Problem 088976660 Obesity, morbid, BMI 40.0-49.9 (E66.01) Active confirmed Problem 466140371 Tonsillar enlarg ement (J35.1) Active confirmed Problem 25500747954567355 Abnormal CT sc an, chest (R93.89) Active confirmed Problem 299114217 History of lung cancer (Z85.118) Active confirmed Vital Signs Blood pressure diastolic 70 mm Hg 05/13/2024 meghan ght is up 9 pounds since 12-13-23 Height 61 in 05/13/2024 weight is up 9 pounds since 12-13-23 Blood pressure systolic 132 mm Hg 05/13/2024 weig ht is up 9 pounds since 12-13-23 Weight 224 lbs 05/13/2024 weight is up 9 pounds since 12-13-23 BMI 42.32 kg/m2 05/13/2024 weight is up 9 pounds since 12-13-23 Encounters Encounter Location Date Provider Diagnosis Brenden Latif MD [address] [place] [id number] 05/06/2024 Brenden Latif Pure hypercholestero lemia E78.00 Brenden Latif MD [address] [id number] 11/27/2024 Brenden Latif Essential hypertensi on I10 ; Leukocytosis, unspecified type D72.829 ; Pure hypercholesterolemia E78.00 and Prediabetes R73.03 Brenden Latif MD [address] [id number] 11/30/2023 Brenden Latif Adenomatous rectal p olyp D12.8 ; Pure hypercholesterolemia E78.00 ; Hx of CABG Z95.1 ; Essential hypertension I10 ; Prediabetes R73.03 and Depression screening Z13.31 Brenden Latif MD [address] [place] [id number] 12/13/2023 Brenden Latif Lung mass R91.8 Brenden Latif MD [address] [place] [id number] 05/13/2024 Brenden Latif History of lung canc er Z85.118 ; ELLA (obstructive sleep apnea) G47.33 ; Coronary artery disease of mi[place]kmaq artery of mi[place] heart with stable angina pectoris I25.118 ; Essential hypertension I10 and Pure hypercholesterolemia E78.00 Brenden Latif MD [address] [id number] 02/14/2024 Brenedn Latif Assessments Encounter Date Diagnosis (ICD Code) Assessment Notes Treatment Notes Treatment Clinical Notes Section Notes 05/06/2024 Pure hypercholesterolemia (ICD-10 - E78.00) 11/27/2024 Essential hypertensi on (ICD-10 - I10) 11/30/2023 Adenomatous rectal polyp (ICD-10 - D12.8) due for colonoscopy next year 11/30/2023 Pure hypercholesterolemia (ICD-10 - E78.00) doing well on meds, will continue current regimnent 12/13/2023 Lung mass (ICD-10 - R91.8) discussed findings of CT scan with patient, enlarging RLL opacity, needs referral to dr aziza mccormick. have [facility] send the ct from may and 05/13/2024 History of lung canc er (ICD-10 - Z85.118) had surgery at [facility]. need the pathology results/ request for records sent 05/13/2024 ELLA (obstructive sle ep apnea) (ICD-10 - G47.33) using his cpap nightly 11/27/2024 Leukocytosis, unspecified type (ICD-10 - D72.829) 11/30/2023 Hx of CABG (ICD-10 - Z95.1) doing well after bypass 05/13/2024 Coronary artery dise ase of mi'kmaq artery of mi'kmaq heart with stable angina pectoris (ICD-10 - I25.118) not having any symptoms 11/27/2024 Pure hypercholesterolemia (ICD-10 - E78.00) 11/30/2023 Essential hypertensi on (ICD-10 - I10) stable, will continue to monitor, chantel continue current regiment 05/13/2024 Essential hypertensi on (ICD-10 - I10) stable, will continue current regiment 11/27/2024 Prediabetes (ICD-10 - R73.03) 11/30/2023 Prediabetes (ICD-10 - R73.03) stable, no need for medication at this time 05/13/2024 Pure hypercholesterolemia (ICD-10 - E78.00) labs reviewed, stable, will contiue current regiment 11/30/2023 Depression screening (ICD-10 - Z13.31) negative screen Plan Of Treatment Pending Test Test Name Order Date Electrocardiogram (EKG) 06/26/2019 NUC WHOLE BODY SCAN BONE 05/25/2016 Complete Blood Count Auto Diff 5 Comprehensive [place]. Panel Fast Glucose Fasting 11/30/2020 Lipid Panel 11/27/2024 PSA,Total (Free>4and<10) 11/27/2024 Microalbumin, Random 11/27/2024 CT chest wo con 06/14/2023 Hemoglobin A1c 11/27/2024 UA ClnCatch+Micro w/rflx Cult 11/27/2024 Future Test Test Name Order Date CT chest wo con 11/15/2023 Next Appt Details Provider Name:Brenden South ier, 12/04/2024 11:00:00 AM, [address], [address], [place], [phone], Provider Name:Brenden South ier, 05/11/2025 08:00:00 AM, [address], [address], [place], [phone], Provider Name:Brenden South ier, 05/18/2025 01:30:00 PM, [address], [address], [place], [phone], Insurance Providers Payer Name Payer Address Payer Phone Subscriber Number Group Number Insured Name Patient Relationship to Insured Coverage Start Date Coverage End Date MEDICARE NHIC [address] [place] [address] [id number] Aidan Garner ([place] ) Self - patient is the insured [facility] [address] [place], [place] [phone] [id number] Aidan Garner ([place] ) Self - patient is the insured Medical (General) History Medical History History ICD Code Refuses flu shot - 05/13/12 colonoscopy 2008; colonoscop y done 11/25/14 - repeat 5 years (Dr. Dhaliwal); Colonoscopy done 12/15/[address] Dhaliwal - repeat 5 years Surgical History Surgery Date(Month/Year) colonosocopy; positive; repeat in 2011 ( 2008)
--- OUTSIDE RECORDS SUMMARY | 2024-11-27 11:31 | XMS_ITS | Clinical Summary ---
Author Organization [facility] Address [address] [place] [phone] Phone Care Team Providers Care Hammersmith Helper Name Role Phone Brenden Latif MD Primary Care Provider Allergies No known active allergies Medications cholecalciferol (VITAMIN D-3) 1,250 mcg (50,000 unit) capsule Take by mouth. Active clopidogreL (PLAVIX) 75 mg tablet Take 1 tablet (75 mg total) by mouth 1 (one) time each day. Active ASPIRIN ORAL Take by mouth. Active ezetimibe (ZETIA) 10 mg tablet Take 1 tablet (10 mg total) by mouth 1 (one) time each day. Active metoprolol tartrate (LOPRESSOR) 50 mg tablet Take 1 tablet (50 mg total) by mouth 2 (two) times a day. Active atorvastatin (LIPITOR) 80 mg tablet Take 1 tablet (80 mg total) by mouth 1 (one) time each day. Active amLODIPine (NORVASC) 5 mg tablet Take 1 tablet (5 mg total) by mouth 1 (one) time each day. Active MAGNESIUM ORAL Take by mouth. Active Active Problems Problem Noted Date Diagnosed Date Pulmonary nodule 01/28/2024 Overview (05/09/2024): Last Assessment & Plan: Mr. Garner is a 73 yr. male presenting for their 2 week follow-up status post navigational bronchoscopy/radial EBUS with dye marking, da Vivian right lower lobe wedge with completion segmentectomy and mediastinal lymphadenectomy which was performed at [facility] on February 11, 2024 for a stage pT2a, pN0 or stage Ib adenocarcinoma. Just prior to his appointment today he did have a chest x-ray performed which showed no pneumothorax, pleural effusion or acute process. He was informed that he was recently discussed at our multidisciplinary tumor board meeting and due to the fact that his stage even though a stage I it is a 1B he will be referred to medical oncology for discussion of any possible further therapies. He was also informed that we will continue to follow him with chest CT scans surveillance every 6 months for the first 2 years following his surgical date. At the end of [address] scans will be increased to 12-month intervals for 3 years thereafter for total surveillance of 5 years. Referral to medical oncology. Chest CT scan to be performed in August 2024 and have a visit at the thoracic surgery department thereafter to discuss. Encounters Date Type Department Care Team Description 11/20/2024 7:15 AM EDT - 11/20/2024 11:59 PM EDT Hospital Encounter [facility] CT Scan [address] [place] [address] Malignant neoplasm of lower lobe of right lung (CMS/HCC V24, CMS/HCC V28) Discharge Disposition: Home or Self Care from Last 3 Months Surgical History Surgery Date Site/Laterality Comments CORONARY ARTERY BYPASS GRAFT PROCEDURE:CORONARY ARTERY BYPASS GRAFT BACK SURGERY PROCEDURE:BACK SURGERY AAA REPAIR PROCEDURE:ABDOMINAL AORTIC ANEURYSM REPAIR;COMMENT:x2 Medical History Medical History Date Comments Hypertension DX:Hypertension Family History Medical History Relation Name Comments Lung cancer Father Relation Name Status Comments Father Mother Social History Tobacco Use Types Packs/Day Years Used Date Smoking Tobacco: Former Cigarettes Q uit: 07/09/2021 Smokeless Tobacco: Never Alcohol Use Standard Drinks/Week Comments Not Currently 0 (1 standard drink = 0.6 oz pur e alcohol) Sex and Gender Information Value Date Recorded Sex Assigned at Not on file Legal Sex Male 1:50 PM EDT Gender Identity Not on file Sexual Orientation Not on file Obstetrics History Last Filed Vital Signs Vital Sign Reading Time Taken Comments Blood Pressure 162/68 06/17/2024 11:31 AM EST Pulse 60 06/17/2024 11:31 AM EST Temperature 36.6 ??C (97.8 ??F) 06/17/2024 11:[address] Respiratory Rate - - Oxygen Saturation 98% 06/17/2024 11:31 AM EST Inhaled Oxygen Concentration - - Weight 102 kg (225 lb) 06/17/2024 11:31 AM EST Height 182.9 cm (6') 06/17/2024 11:31 AM EST Body Mass Index 30.52 06/17/2024 11:31 AM EST Plan of Treatment Upcoming Encounters Date Type Department Care Team (Late st Contact Info) Description 12/02/2024 10:00 AM EDT Office Visit Thoracic Surgery - [place] [address] [phone] Mikayla Taylor, PRICILA [address] [address] 12/16/2024 10:45 AM EDT Office Visit [facility] Hematology Oncology [address] [place] [phone] Alexia Denton DO [address] [place] [address] Health Maintenance Due Date Last Done Comments COVID-19 Vaccine (#1) 1955 DTaP,Tdap,and Td Vaccines (1 - Tdap) 1968 Pneumococcal Vaccine: 50+ Years (1 of 2 - PCV) 1968 Zoster Vaccines (1 of 2) 1969 Cholesterol Screening (Lipid Panel) 04/16/2024 Colorectal Cancer Screening: Colonoscopy 04/16/2024 Depression Screening 04/16/2024 Falls Risk Assessment 04/16/2024 Hepatitis C Screening 04/16/2024 Medicare Annual Wellness Visit 04/16/2024 Social Influencers of Health Screening 04/16/2024 RSV Immunization Adult Patients (1 - 1-dose 75+ series) 2024 Influenza Vaccine (Season Ended) 2025 Hypertension/CHF/CAD Annual BMP Blood Test 11/19/2025 11/19/2024, 05/28/2024 HIB Vaccines Aged Out No longer eligi [...] on patient's age to complete this topic MMR Vaccines Aged Out No longer eligi ble based on patient's age to complete this topic Meningococcal ACWY Vaccine Aged Out N o longer eligible based on patient's age to complete this topic Meningococcal B Vaccine Aged Out No l onger eligible based on patient's age to complete this topic RSV Immunization Patients Under 20 months Aged Out No longer eligible b ased on patient's age to complete this topic Varicella Vaccines Aged Out No longer eligible based on patient's age to complete this topic Procedures Procedure Name Priority Date/Time Associated Diagnosis Comments CT CHEST W CONTRAST Routine 11/20/2024 7 :34 AM EDT Malignant neoplasm of lower lobe of right lung (CMS/HCC V24, CMS/HCC V28) CREATININE, SERUM Routine 11/19/2024 11: 07 AM EDT Malignant neoplasm of lower lobe of right lung (CMS/HCC V24, CMS/HCC V28) from Last 3 Months Results * CT Chest w Contrast (11/20/2024 7:34 AM EDT) Anatomical Region Laterality Modality Body Computed Tomogra phy 11/20/2024 9:37 AM EDT Impressions 11/20/2024 11:[address] appearance of the chest. -------- FINAL REPORT -------- Dictated By: Tyler More Dictated Date: 11/20/2024 09:37 ET Assigned Physician: Tyler More Reviewed and Electronically Signed By: Tyler More Signed Date: 11/20/2024 11:32 ET Workstation ID: [id number] Transcribed By: Self Edit Transcribed Date: 11/20/2024 09:37 ET Narrative 11/20/2024 11:32 AM EDT PROCEDURE: CT of the chest with intravenous contrast. HISTORY: lung cancer. TECHNIQUE: CT of the chest with intravenous contrast administration. ??Coronal and sagittal reformats and MIP reconstructions were created. IV contrast dose: 90 mL ISOVUE. COMPARISON: 05/28/2024. Dose length product: ??1338 mGy-cm. FINDINGS: LUNGS/PLEURA: Trace aspirated debris in the trachea and right mainstem bronchus. ??Right lower lobe wedge resection. ??Normal caliber airways. ??No suspicious endobronchial nodule. ??Mild bronchial wall thickening. ??Stable 6 mm groundglass nodule in the left lower lobe, series 4 image 223. ??Stable ill-defined area of groundglass with mild traction bronchiectasis of the adjacent small-caliber airways, series 4 image 228. ??Stable small area of ill-defined groundglass opacity in the posterior right lower lobe, series 4 image 190. ??Stable 2 mm right lower lobe groundglass nodule, image 170. ??Scattered calcified granulomas. ??No pleural effusion or pneumothorax. MEDIASTINUM/SHONDA: Small calcification in the right thyroid lobe. ??No mediastinal or hilar mass or lymphadenopathy. ?? VASCULATURE: Normal caliber pulmonary arteries with no central pulmonary embolism. ??Moderate atherosclerotic calcifications of the great vessels. CARDIAC: Normal heart size. ??Post coronary artery bypass graft. ??Moderate coronary artery calcification. CHEST WALL: No axillary or supraclavicular lymphadenopathy. ??3.4 cm oval low-attenuation subcutaneous mass in the left posterior chest wall and a 17 mm subcutaneous mass in the right paramedian anterior chest wall, likely epidermal inclusion cysts. LIMITED ABDOMEN: Bilateral renal cortical cysts. ??The largest is an 11.3 cm cyst exophytic from the anterior left kidney. ??There is a thin calcified internal septation. ??Small duodenal diverticulum. BONES: Moderate degenerative changes of the spine. ??Sternotomy wires. ??Mild degenerative changes of the glenohumeral joints. Procedure Note Tyler More MD - 11/20/2024 PROCEDURE: CT of the chest with intravenous contrast. HISTORY: lung cancer. TECHNIQUE: CT of the chest with intravenous contrast administration.Coronal and sagittal reformats and MIP reconstructions were created. IV contrast dose: 90 mL ISOVUE. COMPARISON: 05/28/2024. Dose length product: 1338 mGy-cm. FINDINGS: LUNGS/PLEURA: Trace aspirated debris in the trachea and right mainstembronchus. Right lower lobe wedge resection. Normal caliber airways. Nosuspicious endobronchial nodule. Mild bronchial wall thickening. Stable6 mm groundglass nodule in the left lower lobe, series 4 image 223.Stable ill-defined area of groundglass with mild traction bronchiectasisof the adjacent small-caliber airways, series 4 image 228. Stable smallarea of ill-defined groundglass opacity in the posterior right lower lobe,series 4 image 190. Stable 2 mm right lower lobe groundglass nodule,image 170. Scattered calcified granulomas. No pleural effusion orpneumothorax. MEDIASTINUM/SHONDA: Small calcification in the right thyroid lobe. Nomediastinal or hilar mass or lymphadenopathy. VASCULATURE: Normal caliber pulmonary arteries with no central pulmonaryembolism. Moderate atherosclerotic calcifications of the great vessels. CARDIAC: Normal heart size. Post coronary artery bypass graft. Moderatecoronary artery calcification. CHEST WALL: No axillary or supraclavicular lymphadenopathy. 3.4 cm ovallow-attenuation subcutaneous mass in the left posterior chest wall and a17 mm subcutaneous mass in the right paramedian anterior chest wall,likely epidermal inclusion cysts. LIMITED ABDOMEN: Bilateral renal cortical cysts. The largest is an 11.3cm cyst exophytic from the anterior left kidney. There is a thincalcified internal septation. Small duodenal diverticulum. BONES: Moderate degenerative changes of the spine. Sternotomy wires.Mild degenerative changes of the glenohumeral joints. IMPRESSION: Stable CT appearance of the chest. -------- FINAL REPORT -------- Dictated By: Tyler More Dictated Date: 11/20/2024 09:37 ET Assigned Physician: Tyler More Reviewed and Electronically Signed By: Tyler More Signed Date: 11/20/2024 11:32 ET Workstation ID: [id number] Transcribed By: Self Edit Transcribed Date: 11/20/2024 09:37 ET us Alexia Denton DO IMG CT PROCEDURES Fin al Result * Creatinine (11/19/2024 11:07 AM EDT) Creatinine 0.99 0.70 - 1.30 mg/dL LAB CHEMISTRY METHOD 11/19/2024 1:19 PM EDT [facility] eGFR 80 >=60 mL/min/1. 73m2 LAB CHEMISTRY METHOD 11/19/2024 1:19 PM EDT [facility] Comment:Calculation based on the Chronic Kidney Disease Epidemiology Collaboration (CKD-EPI) equation refit without adjustment for race. Blood Venous blood specimen / Unknown Venipuncture / Unknown 11/19/2024 11:07 AM EDT 11/19/2024 12:06 PM EDT us Alexia Denton DO LAB BLOOD ORDERABLES Final Result [facility] [address] [place] [address], [place] [phone] from Last 3 Months Insurance MEDICARE [facility] Advance Directives Documents on File Type Date Recorded Patient Vocational Psychologist Expl anation Health Care Decision (hx) 02/11/2024 HE ALTH CARE PROXY Health Care Decision (hx) 02/11/2024 HE ALTH CARE PROXY Care Teams Hammersmith Helper Relationship Specialty Start Date End Date Brenden Latif MD PCP - General 02/29/24
--- OUTSIDE RECORDS SUMMARY | 2024-11-27 11:31 | XMS_ITS ---
Author Organization Brenden Latif MD Address [address] [place] [phone] Care Team Providers Care Clinical Informatics Strategist Name Role Phone Brenden Latif Primary Care Provider REASON FOR VISIT FASTING LIPIDS Encounters Encounter Location Date Provider Diagnosis Brenden Latif MD [address] [place] [phone] 05/06/2024 Brenden Latif Pure hypercholestero lemia E78.00 Assessments Encounter Date Diagnosis (ICD Code) Assessment Notes Treatment Notes Treatment Clinical Notes Section Notes 05/06/2024 Pure hypercholesterolemia (ICD-10 - E78.00) Plan Of Treatment Next Appt Details Provider Name:Brenden hsu, 12/04/2024 11:00:00 AM, [address], Suite [facility], [place], [place], [phone], Provider Name:Brenden hsu, 05/11/2025 08:00:00 AM, [address], [address], [place], [place], [phone], Provider Name:Brenden South ier, 05/18/2025 01:30:00 PM, [address] [facility], [address], [place], [place], [phone], Progress Notes * Aidan MOYA MD (Ryszard) OB:1950 (73 yo M)Acc No.[id number]:05/06/2024 Progress Note Patient:?Aidan MOYA (Carlos wang) Pavan Provider:?Brenden Latif MD :1950???Age:73 Y???Sex:Male Ulisses e:05/06/2024 Address: [address] [place] [address] Subjective: * Chief Complaints: * ???1. FASTING LIPIDS. * Medical History:? Objective: * Vitals:? Assessment: * Assessment: 1.?Pure hypercholesterolemia - E78.00 (Primary)??? Plan: * Treatment: * Procedure Codes:?44359 VENIP UNCT, ROUTINE* * * The named appointment provid er may or may not be the originator of this progress note, and it is not deemed complete until electronically signed by the appointment provider. Sign off status: Pending * Provider:?Brenden Latif MD Date:?1 Generated for John schuster/Jcarlos/Karrismitting on:?11/27/2024 11:30 AM EDT
--- OUTSIDE RECORDS SUMMARY | 2024-11-27 11:31 | XMS_ITS ---
Author Organization Brenden Latif MD Address [address] [place] [phone] Care Team Providers Care Car Dealer Name Role Phone Brenden Latif Primary Care Provider REASON FOR VISIT FASTING LABS Encounters Encounter Location Date Provider Diagnosis Brenden Latif MD [address] [place] [phone] 11/27/2024 Brenden Latif Essential hypertensi on I10 ; Leukocytosis, unspecified type D72.829 ; Pure hypercholesterolemia E78.00 and Prediabetes R73.03 Assessments Encounter Date Diagnosis (ICD Code) Assessment Notes Treatment Notes Treatment Clinical Notes Section Notes 11/27/2024 Essential hypertensi on (ICD-10 - I10) 11/27/2024 Leukocytosis, unspecified type (ICD-10 - D72.829) 11/27/2024 Pure hypercholesterolemia (ICD-10 - E78.00) 11/27/2024 Prediabetes (ICD-10 - R73.03) Plan Of Treatment Pending Test Test Name Order Date Complete Blood Count Auto Diff 5 Comprehensive [place]. Panel Fast 5 Lipid Panel 11/27/2024 PSA,Total (Free>4and<10) 11/27/2024 Microalbumin, Random 11/27/2024 Hemoglobin A1c 11/27/2024 UA ClnCatch+Micro w/rflx Cult 11/27/2024 Next Appt Details Provider Name:Brenden South ier, 12/04/2024 11:00:00 AM, [address] [place] [address], [address] [place] [address], [phone], Provider Name:Brenden South ier, 05/11/2025 08:00:00 AM, [address] [place] [address], [address] [place] [address], [phone], Provider Name:Brenden South ier, 05/18/2025 01:30:00 PM, [address] [place] [address], [place] [address], [place], [place], [phone], Progress Notes * Aidan MOYA MD (Ryszard) OB:1950 (73 yo M)Acc No.[id number]:11/27/2024 Progress Note Patient:?Aidan MOYA (Carlos garcía Pavan Provider:?Brenden Latif MD :1950???Age:73 Y???Sex:Male Ulisses e:11/27/2024 Address: [address] [facility] Subjective: * Chief Complaints: * ???1. FASTING LABS. * Medical History:? Objective: * Vitals:? Assessment: * Assessment: 1.?Essential hypertension - I10 (Primary)???2.?Leukocytosis, unspecified type - D72.829???3.?Pure hypercholesterolemia - E78.00???4.?Prediabetes - R73.03??? Plan: * Treatment: 2.?Leukocytosis, unspecified type?LAB: Complete Blood Count Auto Diff ?LAB: Comprehensive [place]. Panel Fast ?LAB: Lipid Panel ?LAB: PSA,Total (Free>4and<10) ?LAB: Microalbumin, Random ?LAB: Hemoglobin A1c ?LAB: UA ClnCatch+Micro w/rflx Cult 3.?Pure hypercholesterolemia ?LAB: Complete Blood Count Auto Diff ?LAB: Comprehensive [place]. Panel Fast ?LAB: Lipid Panel ?LAB: PSA,Total (Free>4and<10) ?LAB: Microalbumin, Random ?LAB: Hemoglobin A1c ?LAB: UA ClnCatch+Micro w/rflx Cult 4.?Prediabetes?LAB: Complete Blood Count Auto Diff ?LAB: Comprehensive [place]. Panel Fast ?LAB: Lipid Panel ?LAB: PSA,Total (Free>4and<10) ?LAB: Microalbumin, Random ?LAB: Hemoglobin A1c ?LAB: UA ClnCatch+Micro w/rflx Cult * Procedure Codes:?37846 VENIP UNCT, ROUTINE* * * The named appointment provid er may or may not be the originator of this progress note, and it is not deemed complete until electronically signed by the appointment provider. Sign off status: Pending * Provider:?Brenden Latif MD Date:?0 11/27/2024 Generated for John schuster/Jcarlos/eTelsasmitting on:?11/27/2024 11:31 AM EDT
[2024-11-27 11:32] LABS: Alanine Aminotransferase 134 U/L (0-40); Albumin Level 3.9 g/dL (3.5-5.0); Alkaline Phosphatase 128 U/L (39-117); Anion Gap 8 (12-20); Aspartate Amino Transferase 93 U/L (5-37); Bilirubin Total 0.5 mg/dL (0.0-1.0); Blood Urea Nitrogen 10 mg/dL (9-16); Calcium 9.1 mg/dL (8.4-10.2); Carbon Dioxide 28 mmol/L (22-29); Chloride 110 mmol/L (96-108); Cholesterol 110 mg/dL (<200); Estimated Glomerular Filt Rate > 60; Glucose Fasting 104 mg/dL (60-99); HDL Cholesterol 28 mg/dL (>40); LDL Cholesterol Calculated 67 mg/dL (<100); Potassium 4.4 mmol/L (3.3-5.1); Sodium 142 mmol/L (135-145); Total Protein 7.1 g/dL (6.5-8.0); Triglycerides 78 mg/dL (<150)
== END 2024-11-27 10:48 | disposition home or self-care (01) ==
LOC: HO.LNP 10:47
PROVIDERS: Visit Provider Internal Medicine
DX: I10 Essential (primary) hypertension (principal); E78.00 Pure hypercholesterolemia, unspecified; D72.829 Elevated white blood cell count, unspecified; R73.03 Prediabetes; Z12.5 Encounter for screening for malignant neoplasm of prostate
CPT/HCPCS: 80053; 80061; 83036; 84153; 85025

== ENCOUNTER 2024-12-04 12:18 | Outpatient (REF) | payer MEDICARE, SELFPAY ==
--- OUTSIDE RECORDS SUMMARY | 2024-12-04 12:20 | XMS_ITS | Encounter Summary ---
Author Organization [facility] Address [address] [place] [address] Care Team Providers Care Pitting Machine Operator Name Role Phone Brenden Latif MD Primary Care Provider [phone] Reason for Referral * Imaging (Routine) - Authorized Specialty Diagnoses / Procedures Referred By Contac t Referred To Contact Radiology Diagnoses History of lung cancer Procedures CT Chest wo Contrast Mikayla Taylor NP [address] [address] Phone: tel: fax: [facility] Referral ID Status Reason Start Date Expiration Date V isits Requested Visits Authorized [id number] Authorized 12/02/2024 12/02/2025 1 1 Reason for Visit * Reason Comments Follow-up Chest CT Encounter Details Date Type Department Care Team (Late st Contact Info) Description 12/02/2024 10:00 AM EDT Office Visit Thoracic Surgery - [place] [address] [facility] [address] [phone] Mikayla Taylor NP [address] [address] History of lung cancer (Primary Dx) Social History Tobacco Use Types Packs/Day Years Used Date Smoking Tobacco: Former Cigarettes Q uit: 07/09/2021 Smokeless Tobacco: Never Tobacco Cessation:Counseling Given: Not Answered Alcohol Use Standard Drinks/Week Comments Not Currently 0 (1 standard drink = 0.6 oz pur e alcohol) Sex and Gender Information Value Date Recorded Sex Assigned at Not on file Legal Sex Male 1:50 PM EDT Gender Identity Not on file Sexual Orientation Not on file documented as of this encounter Last Filed Vital Signs Vital Sign Reading Time Taken Comments Blood Pressure 144/68 12/02/2024 9:52 AM EDT Pulse 63 12/02/2024 9:52 AM EDT Temperature 37.2 ??C (99 ??F) 12/02/2024 9:52 AM EDT Respiratory Rate 18 12/02/2024 9:52 AM EDT Oxygen Saturation 96% 12/02/2024 9:52 AM EDT Inhaled Oxygen Concentration - - Weight 103 kg (227 lb 12.8 oz) 12/02/2024 9:52 A M EDT Height 181.6 cm (5' 11.5 ) 12/02/2024 9:52 AM ED T Body Mass Index 31.33 12/02/2024 9:52 AM EDT documented in this encounter Progress Notes * Mikayla Taylor, PRICILA - 12/02/2024 11:01 AM EDTAssociated Problem(s): History of lung cancer Mr. Garner is a 73 yr. male who had a navigational bronchoscopy/radial EBUS with dye marking, da Vivian right lower lobe wedge with completion segmentectomy and mediastinal lymphadenectomy which was performed at [facility] on February 11, 2024 for a stage pT2a, pN0 or stage Ib adenocarcinoma.He was seen by Dr. Carnes following this and it was decided no adjuvant therapy would be warranted. A 3 month chest/abd/pelvis surveillance CT scan showed no new or suspicious pulmonary nodules or mediastinal/hilar lymphadenopathy and no metastatic disease noted in the chest, abdomen, or pelvis. Moving forward patient would have [address] surveillance scans. Review of CT chest scan done on November 2024 showing stable appearance of previously shown nodules, with no new or suspicious pulmonary nodules or mediastinal/hilar lymphadenectomy. Next Chest CT scan to be performed on May 2025 and he will have a visit in the office with an NATHANAEL following the scan. Patient is to continue to follow up with , next scheduled visit is on December 16, 2024. Patient is advised to call with any questions or concerns prior to this appointment. * Mikayla Taylor NP - 12/02/2024 10:00 AM EDT Images from the original note were not included. Thoracic Surgery Follow Up Visit Patient name: Cosme Garner : 1950 Date of Visit: December 02, 2024 Care Team PCP: Brenden Latif MD Medical Oncologist: MD Bertin Reason for Visit Chief Complaint Patient presents with Follow-up Chest CT History of Present Illness Mr. Garner is a 74 y.o. male former smoker who had a CT scan of the chest done in July 2023 compared with more recent CT scan of the chest in November 2023 shows an enlarging mixed pulmonary nodule in the superior segment of the right lower lobe measuring 3.1 x 2.6 x 2.6 cm increased from max dimension of 2.6 cm. Discussion was had with the patient of continued observation versus biopsy versus surgical wedge resection possibly lobectomy and the patient ultimately chose surgery. On 02/11/2024 patient underwent navigational bronchoscopy/radial EBUS with dye marking, da Vivian right lower lobe wedge with completion segmentectomy and mediastinal lymphadenectomy which was performed at [facility] on February 11, 2024 for a stage pT2a, pN0 or stage Ib adenocarcinoma. He was discussed at the Tumor board meeting and it was recommended patient be referred to medical oncology due to his staging of 1b to determine is any adjuvant therapy would be warranted. He did see Dr. Denton who discussed with patient that he only had pleural invasion and no other factors present, making it a low risk tumor and with his co-morbid conditions (CAD), they opted out against chemotherapy, which she felt would likely provide minimal benefit, and immunotherapy, which would not provide any benefit given PDL 1 is 0%. Plan at that time was to continue with CT surveillance, which was ordered for 3 month from surgery date. Chest/Abd/Pelvis done in May 2024 showed no new or suspicious pulmonary nodulesor mediastinal/hilar lymphadenopathy and no metastatic disease noted in the chest, abdomen, or pelvi s. Dr. Denton at that time determined patient will proceed with [address] scans moving forward.Patient presents today for his most recent [address] scan done in November 20, 2024. Patient is doing generally well. He did say he had flu-like symptoms about a month ago which has since resolved. He denies any new concerns of a cough, hemoptysis, or shortness of breath. He denies any concerns of night sweats or weight loss. Past Medical History: Diagnosis Date Hypertension DX:Hypertension Patient Active Problem List Diagnosis Pulmonary nodule History of lung cancer Past Surgical History: Procedure Laterality Date AAA REPAIR PROCEDURE:ABDOMINAL AORTIC ANEURYSM REPAIR;COMMENT:x2 BACK SURGERY PROCEDURE:BACK SURGERY CORONARY ARTERY BYPASS GRAFT PROCEDURE:CORONARY ARTERY BYPASS GRAFT No Known Allergies Current Outpatient Medications on File Prior to Visit Medication Sig Dispense Refill amLODIPine (NORVASC) 5 mg tablet Take 1 tablet (5 mg total) by mouth 1 (one) time each day. ASPIRIN ORAL Take by mouth. atorvastatin (LIPITOR) 80 mg tablet Take 1 tablet (80 mg total) by mouth 1 (one) time each day. cholecalciferol (VITAMIN D-3) 1,250 mcg (50,000 unit) capsule Take by mouth. ezetimibe (ZETIA) 10 mg tablet Take 1 tablet (10 mg total) by mouth 1 (one) time each day. MAGNESIUM ORAL Take by mouth. metoprolol tartrate (LOPRESSOR) 50 mg tablet Take 1 tablet (50 mg total) by mouth 2 (two) times a day. clopidogreL (PLAVIX) 75 mg tablet Take 1 tablet (75 mg total) by mouth 1 (one) time each day. (Patient not taking: Reported on 12/02/2024) No current facility-administered medications on file prior to visit. Social History Tobacco Use Smoking status: Former Current packs/day: 0.00 Types: Cigarettes Quit date: 07/09/2021 Years since quittin.4 Smokeless tobacco: Never Substance Use Topics Alcohol use: Not Currently Drug use: Never Social History Social History Narrative Not on file Review of Systems Review of Systems Constitutional: Negative for chills, fever and weight loss. Cardiovascular: Negative for chest pain and palpitations. Respiratory: Negative for cough, hemoptysis and shortness of breath. Gastrointestinal: Negative for nausea and vomiting. Physical Exam Vitals: 12/02/24 0952 BP: (!) 144/68 BP Location: Right arm Patient Position: Sitting BP Cuff Size: Large adult long Pulse: 63 Resp: 18 Temp: 37.2 ??C (99 ??F) TempSrc: Temporal SpO2: 96% Weight: 103 kg (227 lb 12.8 oz) Height: 1.816 m (71.5 ) Physical Exam Vitals and nursing note reviewed. Constitutional: Appearance: Normal appearance. HENT: Head: Normocephalic and atraumatic. Eyes: General: No scleral icterus. Pulmonary: Effort: Pulmonary effort is normal. Chest: Comments: Well healed surgical incisions with no new nodularity noted. Skin: General: Skin is warm. Neurological: General: No focal deficit present. Mental Status: He is alert and oriented to person, place, and time. Psychiatric: Mood and Affect: Mood normal. Behavior: Behavior normal. Radiology I personally viewed the patient's current and past imaging studies, in addition to reviewing the dictated report from the reading radiologist. CT Chest w Contrast Narrative: PROCEDURE: CT of the chest with intravenous contrast. HISTORY: lung cancer. TECHNIQUE: CT of the chest with intravenous contrast administration. Coronal and sagittal reformatsand MIP reconstructions were created. IV contrast dose: 90 mL ISOVUE. COMPARISON: 05/28/2024. Dose length product: 1338 mGy-cm. FINDINGS: LUNGS/PLEURA: Trace aspirated debris in the trachea and right mainstem bronchus. Right lower lobe wedge resection. Normal caliber airways. No suspicious endobronchial nodule. Mild bronchial wall thickening. Stable 6 mm groundglass nodule in the left lower lobe, series 4 image 223. Stable ill-defined area of groundglass with mild traction bronchiectasis of the adjacent small-caliber airways, series 4 image 228. Stable small area of ill-defined groundglass opacity in the posterior right lower lobe, series 4 image 190. Stable 2 mm right lower lobe groundglass nodule, image 170. Scattered calcified granulomas. No pleural effusion or pneumothorax. MEDIASTINUM/SHONDA: Small calcification in the right thyroid lobe. No mediastinal or hilar mass or lymphadenopathy. VASCULATURE: Normal caliber pulmonary arteries with no central pulmonary embolism. Moderate atherosclerotic calcifications of the great vessels. CARDIAC: Normal heart size. Post coronary artery bypass graft. Moderate coronary artery calcification. CHEST WALL: No axillary or supraclavicular lymphadenopathy. 3.4 cm oval low- attenuation subcutaneous mass in the left posterior chest wall and a 17 mm subcutaneous mass in the right paramedian anterior chest wall, likely epidermal inclusion cysts. LIMITED ABDOMEN: Bilateral renal cortical cysts. The largest is an 11.3 cm cyst exophytic from the anterior left kidney. There is a thin calcified internal septation. Small duodenal diverticulum. BONES: Moderate degenerative changes of the spine. Sternotomy wires. Mild degenerative changes of the glenohumeral joints. Impression: Stable CT appearance of the chest. -------- FINAL REPORT -------- Dictated By: Tyler More Dictated Date: 11/20/2024 09:37 ET Assigned Physician: Tyler More Reviewed and Electronically Signed By: Tyler More Signed Date: 11/20/2024 11:32 ET Workstation ID: [id number] Transcribed By: Self Edit Transcribed Date: 11/20/2024 09:37 ET Assessment and Plan Problem List Items Addressed This Visit History of lung cancer - Primary Mr. Garner is a 73 yr. male who had a navigational bronchoscopy/radial EBUS with dye marking, da Vivian right lower lobe wedge with completion segmentectomy and mediastinal lymphadenectomy which was performed at [facility] on February 11, 2024 for a stage pT2a, pN0 or stage Ib adenocarcinoma.He was seen by Dr. Carnes following this and it was decided no adjuvant therapy would be warranted. A 3 month chest/abd/pelvis surveillance CT scan showed no new or suspicious pulmonary nodules or mediastinal/hilar lymphadenopathy and no metastatic disease noted in the chest, abdomen, or pelvis. Moving forward patient would have [address] surveillance scans. Review of CT chest scan done on November 2024 showing stable appearance of previously shown nodules, with no new or suspicious pulmonary nodules or mediastinal/hilar lymphadenectomy. Next Chest CT scan to be performed on May 2025 and he will have a visit in the office with an NATHANAEL following the scan. Patient is to continue to follow up with , next scheduled visit is on December 16, 2024. Patient is advised to call with any questions or concerns prior to this appointment. Mikayla Taylor NP [facility] Thoracic Surgery [address] [place] [address], [address] [place] [phone] documented in this encounter Plan of Treatment Upcoming Encounters Date Type Department Care Team (Late st Contact Info) Description 12/16/2024 10:45 AM EDT Office Visit [facility] Hematology Oncology [address] [place] [address] Alexia Denton DO [address] [place] [address] Scheduled Orders Name Type Priority Associated Diagnoses Orde r Schedule CT Chest wo Contrast Imaging Routine History of lung cancer Expected: 06/04/2025, Expires: 12/02/2025 documented as of this encounter Visit Diagnoses Diagnosis History of lung cancer- Primary Personal history of malignant neoplasm of bronchus and lung documented in this encounter Care Teams Pitting Machine Operator Relationship Specialty Start Date End Date Brenden Latif MD PCP - General 02/29/24 documented as of this encounter
[2024-12-04 12:27] LABS: Appearance Urine Clear; Color Urine Dark Yellow; Glucose Urine UA Negative (Negative); Leukocyte Esterase Urine Negative (Negative); Nitrite Urine Negative (Negative); UMIC TRIGGER UACC YES; Urine Blood Negative (Negative); Urine Ketones Negative (Negative); Urine Protein 30 (1+) mg/dL (Neg-Trace)
[2024-12-04 12:30] LABS: Bacteria Urine None Seen (None Seen); Hyaline Casts Urine 0-2 /LPF (0-2); RBC Urine 0-2 /HPF (0-2); Squamous Epithelial Cell Urine 0-2 /HPF (0-2); WBC Urine 0-5 /HPF (0-5)
== END 2024-12-04 12:19 | disposition home or self-care (01) ==
LOC: HO.LNP 12:18
PROVIDERS: Visit Provider Internal Medicine
DX: E78.00 Pure hypercholesterolemia, unspecified (principal); I10 Essential (primary) hypertension
CPT/HCPCS: 81001

== ENCOUNTER 2025-01-01 10:26 | Outpatient (REF) | payer MEDICARE, SELFPAY ==
[2025-01-01 10:49] LABS: Alanine Aminotransferase 54 U/L (0-40); Albumin Level 3.8 g/dL (3.5-5.0); Alkaline Phosphatase 131 U/L (39-117); Aspartate Amino Transferase 47 U/L (5-37); Bilirubin Direct 0.2 mg/dL (0.0-0.5); Bilirubin Total 0.6 mg/dL (0.0-1.0); Total Protein 6.9 g/dL (6.5-8.0)
--- OUTSIDE RECORDS SUMMARY | 2025-01-01 12:13 | XMS_ITS | Clinical Summary ---
Author Organization [facility] Address [address] [place] [phone] Phone Care Team Providers Care C++ Professor Name Role Phone Brenden Latif MD Primary Care Provider [phone] Allergies No known active allergies Medications cholecalciferol (VITAMIN D-3) 1,250 mcg (50,000 unit) capsule Take by mouth. Active ASPIRIN ORAL Take by mouth. Active ezetimibe (ZETIA) 10 mg tablet Take 1 tablet (10 mg total) by mouth 1 (one) time each day. Active metoprolol tartrate (LOPRESSOR) 50 mg tablet Take 1 tablet (50 mg total) by mouth 2 (two) times a day. Active amLODIPine (NORVASC) 5 mg tablet Take 1 tablet (5 mg total) by mouth 1 (one) time each day. Active MAGNESIUM ORAL Take by mouth. Active clopidogreL (PLAVIX) 75 mg tablet Take 1 tablet (75 mg total) by mouth 1 (one) time each day. 12/17/19 25 Discontinued atorvastatin (LIPITOR) 80 mg tablet Take 1 tablet (80 mg total) by mouth 1 (one) time each day. 12/17/19 25 Discontinued Active Problems Problem Noted Date Diagnosed Date History of lung cancer 12/02/2024 Assessment & Plan (12/02/2024 11:01 AM EDT): Mr. Garner is a 73 yr. male who had a navigational bronchoscopy/radial EBUS with dye marking, da Vivian right lower lobe wedge with completion segmentectomy and mediastinal lymphadenectomy which was performed at [facility] on February 11, 2024 for a stage pT2a, pN0 or stage Ib adenocarcinoma. He was seen by Dr. Carnes following this [...] questions or concerns prior to this appointment. Pulmonary nodule 01/28/2024 Overview (05/09/2024): Last Assessment & Plan: Mr. Garner is a 73 yr. male presenting for their 2 week follow-up status post navigational bronchoscopy/radial EBUS with dye marking, da Vivian right lower lobe wedge with completion segmentectomy and mediastinal lymphadenectomy which was performed at [facility] on February 11, 2024 for a stage [...] Encounters Date Type Department Care Team Description 12/16/2024 10:45 AM EDT Office Visit [facility] Hematology Oncology [address] [place] [address] Alexia Denton DO Malignant neoplasm of lower lobe of right lung (CMS/HCC V24, CMS/HCC V28) (Primary Dx); Renal cyst 12/02/2024 10:00 AM EDT Office Visit Thoracic Surgery - [place] [address] [facility] [address] [place] [phone] Mikayla Taylor NP History of lung cancer (Primary Dx) 11/20/2024 7:15 AM EDT - 11/20/2024 11:59 PM EDT Hospital Encounter [facility] CT Scan [address] [place] [address] Malignant neoplasm of lower lobe [...] Sign Reading Time Taken Comments Blood Pressure 113/64 12/16/2024 10:55 AM EDT Pulse 66 12/16/2024 10:55 AM EDT Temperature 36.5 C (97.7 F) 12/16/2024 10:55 AM EDT Respiratory Rate 18 12/02/2024 9:52 AM EDT Oxygen Saturation 98% 12/16/2024 10:55 AM EDT Inhaled Oxygen Concentration - - Weight 99.3 kg (219 lb) 12/16/2024 10:55 AM EDT Height 181.6 cm (5' 11.5 ) 12/02/2024 9:52 AM ED T Body Mass Index 30.12 12/02/2024 9:52 AM EDT Plan of Treatment Upcoming Encounters Date Type Department Care Team (Late st Contact Info) Description 12/14/2025 10:30 AM EDT Office Visit [facility] Hematology Oncology [address] [place] [phone] Alexia Denton, DO [address] [place] [address] Health Maintenance Due Date Last Done Comments [...] Signed Date: 11/20/2024 11:32 ET Workstation ID: [id number] Transcribed By: Self Edit Transcribed Date: 11/20/2024 09:37 ET Narrative 11/20/2024 11:32 AM EDT PROCEDURE: CT of the chest with intravenous contrast. HISTORY: lung cancer. TECHNIQUE: CT of the chest with intravenous contrast administration. Coronal and sagittal reformats and MIP reconstructions were [...] axillary or supraclavicular lymphadenopathy. 3.4 cm oval low-attenuation subcutaneous mass in the [...] Mild degenerative changes of the glenohumeral joints. Procedure [...] chest. -------- FINAL REPORT -------- Dictated By: Tyelr More Dictated Date: 11/20/2024 09:37 ET Assigned Physician: Tyler More Reviewed and Electronically Signed By: Tyler More Signed Date: 11/20/2024 11:32 ET Workstation ID: [id number] Transcribed By: Self Edit Transcribed Date: 11/20/2024 09:37 ET us Alexia Denton DO IMG CT PROCEDURES Fin al Result * Creatinine (11/19/2024 11:07 AM EDT) Creatinine 0.99 0.70 - 1.30 mg/dL LAB CHEMISTRY METHOD 11/19/2024 1:19 PM EDT [facility] eGFR 80 >=60 mL/min/1. 73m2 LAB CHEMISTRY METHOD 11/19/2024 1:19 PM EDT [facility] Comment:Calculation based on the Chronic Kidney Disease Epidemiology Collaboration (CKD-EPI) equation refit without adjustment for race. Blood Venous blood specimen / Unknown Venipuncture / Unknown 11/19/2024 11:07 AM EDT 11/19/2024 12:06 PM EDT us Alexia Denton DO LAB BLOOD ORDERABLES Final Result [facility] [address] [place] [address], [place] [phone] from Last 3 Months Insurance [facility]IC[facility] Advance Directives Documents on File Type Date Recorded Patient Senior Planning Manager Expl anation Health Care Decision (hx) 02/11/2024 HE ALTH CARE PROXY Health Care Decision (hx) 02/11/2024 HE ALTH CARE PROXY Care Teams C++ Professor Relationship Specialty Start Date End Date Brenden Latif MD [address] [place] [address] Drive [address] [place] [address] PCP - General 02/29/24
== END 2025-01-01 10:27 | disposition home or self-care (01) ==
LOC: HO.LNP 10:26
PROVIDERS: Visit Provider Internal Medicine
DX: R79.89 Other specified abnormal findings of blood chemistry (principal)
CPT/HCPCS: 80076

== ENCOUNTER 2025-01-08 12:12 | Outpatient (REF) | payer MEDICARE, SELFPAY ==
--- OUTSIDE RECORDS SUMMARY | 2025-01-08 06:45 | XMS_ITS ---
Author Organization Brenden Latif MD Address [address] [place] [phone] Care Team Providers Care Tanker Service Attendant Name Role Phone Brenden Latif Primary Care [...] kg/m2 01/08/2025 weight is down [address] [facility] e 12-04-24 Encounters Encounter Location Date Provider Diagnosis Brenden Latif MD [address] [place] [address] [address] [place], [place] [phone] 01/08/2025 Brenden Latif Night sweats R61 ; [...] LFTs (ICD-10 - R79.89) ORDER FAXED TO [facility] FOR SCHEDULING @ [phone] 01/08/2025 Encounter for preprocedural laboratory examination (ICD-10 - Z01.812) 01/08/2025 Blood tests prior to treatment or procedure (ICD-10 - Z01.812) WILL BE FAXED TO [facility] WHEN RESULTS AVAILABLE Plan Of Treatment Treatment Notes Assessment Notes Elevated LFTs [facility] @ [phone] Blood tests prior to treatment or proced ure WILL BE FAXED TO [facility] WHEN RESULTS AVAILABLE Pending Test Test Name Order Date CT ABD W&WO CONTRAST 01/08/2025 Blood Urea Nitrogen 01/08/2025 Creatinine 01/08/2025 Next Appt Details Follow Up: after cat scan, Yasmany álvarez: Provider Name:Brenden hsu, 05/11/2025 08:00:00 AM, [address] [place] [address], [address], [place], [place], [phone], Provider Name:Brenden hsu, 05/18/2025 01:30:00 PM, [address] [place] [address], [address], [place], [place], [phone], Provider Name:Brenden South ier, 12/03/2025 07:00:00 AM, [address], [address], [place], [phone], Provider Name:Brenden South ier, 12/08/2025 10:30:00 AM, [address], [address], [place], [phone], Progress Notes * Aidan MOYA MD (Ryszard) OB:1950 (74 yo M)Acc No.[id number]:01/08/2025 Progress Notes Patient: Humza Aidan DWYER (Cosme) M Provider: Ugo Latif MD :1950 A ge:74 Y S ex:Male Date:01/08/2025 Address: [address] [facility] Subjective: * Chief Complaints: * 1 . [...] by Dr. Dhaliwal - repeat 5 years, [facility] lung 2023. * Medications: T aking Vitamin [...] AB: Creatinine Notes: WILL BE FAXED TO [facility] WHEN RESULTS AVAILABLE * Procedure Codes: 3 6415 VENIPUNCT, ROUTINE* * Follow Up: a fter cat scan * * The named appointment provid er may or may not be the originator of this progress note, and it is not deemed complete until electronically signed by the appointment provider. Sign off status: Pending * Provider: Ugo Latif MD Date: 01/08/2025 Generated for John schuster/Jcarlos/Masharansmitting on: 01/08/2025 12:37 PM EDT History and Physical Notes * HPI [...]
[2025-01-08 12:35] LABS: Blood Urea Nitrogen 15 mg/dL (9-16); Estimated Glomerular Filt Rate > 60
--- OUTSIDE RECORDS SUMMARY | 2025-01-08 12:37 | XMS_ITS | Patient Health Record ---
Author Organization [facility] Address [address] [place] [address] Care Team Providers Care Beauty Counselor Name Role Phone Brenden Latif MD Primary Care Provider Allan Castrejon Unavailable [phone] Reason For Referral No Information Medications Medication SIG (Take, Route, Frequency, Duration) Notes Start Date End Date Status Atorvastatin Calcium 40 MG TK 1 T PO ONC E D Oral for 30 Active Aspir-81 81 MG 1 tablet Orally Once a day Active Lisinopril-hydroCHLOROthiaz diana 20-12.5 MG TK 1 T PO D Oral for 30 Ac tive Immunizations Vaccine Route Administration Date Status Comme nts Influenza Unknown 03/09/2019 Administered Social History Tobacco Use: Social History Observation Description Date Details (start date - stop date) Former Smoker NA - NA Tobacco Use/Smoking Question Answer Notes Patient is a former smoker How long has it been since you last smoked? 1-5 years Alcohol Screen Question Answer Notes Did you [...] Never (0 point) Points 1 Interpretation Negative Section Notes: Smoker 4-8 cigarettes QD; occasional beer. He came from [place] in 1965. Nonsmoker since 2018; occasional beer. He came from [place] in 1965. Problems Problem Type SNOMED Code ICD Code Onset Dates Problem Status W/U Status Risk Notes Problem 356993520 Encounter for screening for malignant neoplasm of colon (Z12.11) Active confirmed Problem 04347760 Constipation, unspecified constipation type (K59.00) Active confirmed Problem 486340891 Hx of adenomatou s colonic polyps (Z86.010) Active confirmed Plan Of Treatment Future Test Test Name Order Date COLONOSCOPY 08/07/2014 COLONOSCOPY 06/13/2019 Insurance Providers Payer Name Payer Address Payer Phone Subscriber Number Group Number Insured Name Patient Relationship to Insured Coverage Start Date Coverage End Date MEDICARE OF [place] [address] [place] [address] [id number] ENOC MOYA (PUSHPA ) Self - patient is the insured MED[employer] ATTN CLAIMS [address] [place] [address] [id number] ENOC MOYA (PUSHPA ) Self - patient is the insured Medical (General) History Medical History History ICD Code Hypertension Elevated Cholesterol Screening colonoscopy by Dr. Ragland in 2008 with the removal of 2 tubular adenomas--he was told to have another colonoscopy in 5 years; colonoscopy in 11/2014 with hyperplastic polyps Denies NC,DM,CVA,Lung disease,renal dise ase Sleep apnea--uses CPAP Surgical History Surgery Date(Month/Year) Appendectomy AAA--had initial IR procedur e with stent, but then needed surgery for the AAA 6 months later 2016 Spinal stenosis surgery 2016
--- OUTSIDE RECORDS SUMMARY | 2025-01-08 12:37 | XMS_ITS | Clinical Summary ---
Author Organization [facility] Address [address] [place] [address] Care Team Providers Care Fluid Pump Operator Name Role Phone Brenden Latif MD Primary Care Provider [phone] Allergies No known active allergies Medications Medication [...] 54 03/06/2024 3:12 PM EDT Temperature 37.1 C (98.8 F) 03/06/2024 3:12 PM EDT Respiratory Rate - - Oxygen Saturation 99% [...] Screening (Colonoscopy) 1994 Fall Risk Assessment 2014 RSV Adult > 60+ Yrs or Pregn ant (1 - 1-dose 75+ series) 2024 Influenza Vaccine (#1) 2025 Hepatitis B Vaccines Aged Out No long er eligible based on patient's age to complete this topic RSV Ped < 20 months Aged Out No longe r eligible based on patient's age to complete this topic Care Teams Fluid Pump Operator Relationship Specialty Start Date End Date Brenden Latif MD [address] [place] [address] Drive [address] [place] [address] PCP - General Internal Medicine 02/29/24
--- OUTSIDE RECORDS SUMMARY | 2025-01-08 12:37 | XMS_ITS | Clinical Summary ---
Author Organization [employer] Address [address] [place] [address] [address] [place] [address] Care Team Providers Care Community Engagement Specialist Name Role Phone Tyra Menjivar Primary Care [...] Vaccine ( - 2023-2 5 season) 2024 RSV Patients and Pa tients Aged 60 years or older (1 - 1-dose 75+ series) 2024 Influenza Vaccine (Season Ended) 2025 HIB Vaccines Aged Out No longer eligi [...] age to complete this topic Care Teams Community Engagement Specialist Relationship Specialty Start Date End Date Tyra Menjivar LLD [address] [place] [phone] PCP - General Dentist 05/05/22
--- OUTSIDE RECORDS SUMMARY | 2025-01-08 12:37 | XMS_ITS | Clinical Summary ---
Author Organization [facility] Address [address] [place] [phone] Phone Care Team Providers Care Oil Filters Inspector Name Role Phone Brenden Latif MD Primary Care Provider [phone] Allergies No known active allergies Medications cholecalciferol [...] and mediastinal lymphadenectomy which was performed at [facility] on February 11, 2024 for a [...] and mediastinal lymphadenectomy which was performed at [facility] on February 11, 2024 for a [...] Description 12/16/2024 10:45 AM EDT Office Visit [facility] Hematology Oncology [address] [place] [address] Alexia Denton DO Malignant neoplasm of lower lobe of right lung (CMS/HCC V24, CMS/HCC V28) (Primary Dx); Renal cyst 12/02/2024 10:00 AM EDT Office Visit Thoracic Surgery - [facility] [address] [facility] [address] [place] [phone] Mikayla Taylor NP History of lung cancer (Primary Dx) 11/20/2024 7:15 AM EDT - 11/20/2024 11:59 PM EDT Hospital Encounter [facility] CT Scan [address] [place] [address] Malignant neoplasm of lower lobe [...] Description 12/14/2025 10:30 AM EDT Office Visit [facility] Hematology Oncology [address] [place] [phone] Alexai Denton, DO [address] [place] [address] Health Maintenance Due Date Last Done Comments [...] 75+ series) 2024 Influenza Vaccine (#1) 2025 Hypertension/CHF/CAD Annual BMP Blood Test 11/19/2025 [...] Signed Date: 11/20/2024 11:32 ET Workstation ID: [id number] Transcribed By: Self Edit Transcribed Date: 11/20/2024 [...] Signed Date: 11/20/2024 11:32 ET Workstation ID: [id number] Transcribed By: Self Edit Transcribed Date: 11/20/2024 09:37 ET us Alexia Denton DO IMG CT PROCEDURES Fin al Result * Creatinine (11/19/2024 11:07 AM EDT) Creatinine 0.99 0.70 - 1.30 mg/dL LAB CHEMISTRY METHOD 11/19/2024 1:19 PM EDT [facility] eGFR 80 >=60 mL/min/1. 73m2 LAB CHEMISTRY METHOD 11/19/2024 1:19 PM EDT [facility] Comment:Calculation based on the Chronic Kidney Disease Epidemiology Collaboration (CKD-EPI) equation refit without adjustment for race. Blood Venous blood specimen / Unknown Venipuncture / Unknown 11/19/2024 11:07 AM EDT 11/19/2024 12:06 PM EDT us Alexia Denton DO LAB BLOOD ORDERABLES Final Result [facility] [address] [place] [address], [place] [phone] from Last 3 Months Insurance MEDICARE [facility] Advance Directives Documents on File Type Date Recorded Patient Manager Real Estate Expl anation Health Care Decision (hx) 02/11/2024 HE ALTH CARE PROXY Health Care Decision (hx) 02/11/2024 HE ALTH CARE PROXY Care Teams Oil Filters Inspector Relationship Specialty Start Date End Date Brenden Latif MD [address] [place] [address] Drive [address] [place] [address] PCP - General 02/29/24
== END 2025-01-08 12:13 | disposition home or self-care (01) ==
LOC: HO.LNP 12:12
PROVIDERS: Visit Provider Internal Medicine
DX: Z01.812 Encounter for preprocedural laboratory examination (principal)
CPT/HCPCS: 82565; 84520

== ENCOUNTER 2025-04-30 12:18 | Outpatient (AMB) | payer MEDICARE, SELFPAY ==
[2025-04-30 12:41] VITALS: BP 126/66; PULSE 80; BMI 30.6
--- NOTE | 2025-04-30 12:41 | A.OFFVIS_ITS ---
Vital Signs 04/30/25 12:41 Height 6 ft Weight 225 lb 12.054 oz BMI 30.6 BP 126/66 Blood Pressure Location Lt brachial Position Sitting Pulse 80 Pulse Source Monitor Intake Visit Reasons: 1 yr f/up Work Manager Required: No Accompanied by: Spouse Allergies No Known Allergies (No Known Allergies*) Allergy (Verified 08/28/23 12:42) Medication List - Last Reconciled 04/30/25 by Latrell Knox MD amlodipine 5 mg PO DAILY aspirin 81 mg PO DAILY 90 days cholecalciferol (vitamin D3) 25 mcg PO DAILY ezetimibe (Zetia) 10 mg PO DAILY 90 days magnesium 250 mg PO DAILY metoprolol succinate ER 50 mg PO DAILY HPI Comments Details: Cosme returns for follow-up regarding coronary artery disease. To recall, he was seen in the past for chest pain. Many risk factors including hypertension, dyslipidemia, history of smoking. Also has vascular disease and abdominal aortic aneurysm repair many years ago at [facility]. He underwent ruel p that led to cardiac catheterization followed by bypass surgery. He had this in June 2023. After that, he also had lung cancer diagnosis and per surgery note, underwent right lower lobe segmentectomy/mediastinal lymphadenectomy. No new concerns since last seen, but per EKG he is in atrial fibrillation today. He does not have any symptoms related to this. [facility] Medical History Lung cancer Atherosclerotic cardiovascular disease ELLA (obstructive sleep apnea) Dyslipidemia Hypertension Surgical History S/P CABG (coronary artery bypass graft) Status post AAA (abdominal aortic aneurysm) repair Family History Father Lung cancer Mother No problems noted. Social History Alcohol intake: current Alcohol intake frequency: holidays/special occasions only Patient Tobacco Use Status: Former Tobacco user Review of Systems Const Denies chills, Denies fatigue, Denies fever(s), Denies frequent falls, Denies weakness, Denies weight gain and Denies weight loss ENT Denies dizziness Card Denies chest pain, Denies leg edema, Denies lightheadedness, Denies palpitations, Denies dyspnea and Denies dyspnea on exertion Resp Denies cough, Denies dyspnea and Denies dyspnea on exertion GI Denies hematochezia Musc Denies abnormal gait, Denies muscle weakness, Denies numbness, Denies radiating pain into limb and Denies tingling Neuro Denies abnormal gait, Denies dizziness, Denies frequent falls, Denies numbness, Denies tingling and Denies weakness Endo Denies fatigue and Denies palpitations Physical Exam Vital Signs: Last Vital Signs Pulse 80 04/30/25 12:41 BP 126/66 04/30/25 12:41 BMI result Body Mass Index 30.6 Const General: comfortable and no acute distress Orientation/consciousness: patient oriented x3 HEENT Other: Unremarkable Head: Yes normal to inspection Neck Neck: Yes normal visual inspection Chest Chest palpation & inspection: normal inspection of the chest Resp Auscultation: clear to auscultation bilaterally Cardio Palpation: normal PMI Heart sounds: S1 normal heart sound present, S2 normal heart sound present, no gallops, no murmurs and no rubs GI Palpation (GI): Soft to palpation Back/Spine/Pelvis Other: unremarkable Skin General skin exam: no rashes or lesions noted Neuro General: patient oriented x3 Extrem General: Yes normal to inspection Psych Mental Status: mental status grossly normal Office Procedures EKG Details: EKG with atrial fibrillation at 80/Min; rightward axis; inferior [place] changes; [place]. 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 Status post CABG x3. Clinically, no angina. Remains on beta-blockers. Was on statins but it seems that they have been stopped because of abnormal LFTs. Per patient, he is due for repeat labs through PCP. He is on Zetia. (2) S/P CABG (coronary artery bypass graft): Code(s): Z95.1 - Presence of aortocoronary bypass graft Category: Surgical Plan: Recovered completely. (3) PAF (paroxysmal atrial fibrillation): Code(s): I48.0 - Paroxysmal atrial fibrillation Category: Medical Plan: Postoperative atrial fibrillation noted after bypass surgery. By EKG, he is back in atrial fibrillation but he has no symptoms. Start Eliquis. Stop aspirin. Check echocardiogram/Holter. Clinically, no symptoms. (4) Hypertension: Code(s): I10 - Essential (primary) hypertension Category: Medical Plan: Currently on amlodipine. In the past, was also on lisinopril/hydrochlorothiazide but not anymore. Overall stable. Orders: Orders ECG 3 day holter monitor Today I48.0 - Paroxysmal atrial fibrillation CA echo transthoracic complete Today I48.0 - Paroxysmal atrial fibrillation Medications: New apixaban (Eliquis) 5 mg PO BID 180 tabs 1RF 90 days Discontinued aspirin Discontinued Reason: Doctor's Order 81 mg PO DAILY 90 days 90 tabs 3RF Coding Level of Care Code Est Pt Level 4 (09978) Complex EM visit Add On G2211 Diagnoses Atherosclerotic cardiovascular disease I25.10 S/P CABG (coronary artery bypass graft) Z95.1 PAF (paroxysmal atrial fibrillation) I48.0 Hypertension I10 CPT Codes EKG - CPT: 15806-[id number], Complete ([id number])
--- OUTSIDE RECORDS SUMMARY | 2025-04-30 15:29 | XMS_ITS | Clinical Summary ---
Author Organization [employer] Address [address] [place] [address] [address] [place] [address] Care Team Providers Care Materials And Processes Manager Name Role Phone Tyra Menjivar DMD Primary Care Provider Unava ilable Social History Tobacco Use Types Packs/Day Years [...] 11/30/1999 Zoster Vaccines (1 of 2) 11/30/1999 RSV Patients and Pa tients Aged 60 years or older (1 - 1-dose 75+ series) 2024 COVID-19 Vaccine (1 - 2023-2 5 season) 2025 Influenza Vaccine (#1) 2025 HIB Vaccines Aged Out No longer [...] age to complete this topic Care Teams Materials And Processes Manager Relationship Specialty Start Date End Date Tyra Menjivar DMD PCP - General Dentist 05/05/22
--- OUTSIDE RECORDS SUMMARY | 2025-04-30 15:29 | XMS_ITS | Encounter Summary ---
Author Organization [facility] Address [address] [place] [address] Care Team Providers Care Maintenance Machine Repairer Name Role Phone Brenden Latif MD Primary Care Provider [phone] Encounter Details Date Type Department Care Team Description 03/14/[address] [facility] [address] [place] [address] Jaime Aguirre, [facility] [place] History Tobacco Use Types Packs/Day Years [...] on filedocumented in this encounter Care Teams Maintenance Machine Repairer Relationship Specialty Start Date End Date Brenden Latif MD [address] [place] [phone] PCP - General Internal Medicine 02/29/24 documented as of this encounter
--- OUTSIDE RECORDS SUMMARY | 2025-04-30 15:29 | XMS_ITS | Encounter Summary ---
Author Organization [employer] Address [address] [facility] [address] [place] [address] Care Team Providers Care Fast Food Crew Lead Name Role Phone Tyra Menjivar DMD Primary Care Provider Unava ilable Encounter Details Date Type Department Care Team [...] on filedocumented in this encounter Care Teams Fast Food Crew Lead Relationship Specialty Start Date End Date Tyra Menjivar DMD PCP - General Dentist 05/05/22 documented as of this encounter
--- OUTSIDE RECORDS SUMMARY | 2025-04-30 15:29 | XMS_ITS | Clinical Summary ---
Author Organization [facility] Address [address] [place] [phone] Phone Care Team Providers Care Social Research Assistant Name Role Phone Brenden Latif MD [...] & Plan (12/02/2024 11:01 AM EDT): Mr. Moya is a 73 yr. male who had a navigational bronchoscopy/radial EBUS with dye marking, da Vivian right lower lobe wedge with completion segmentectomy and mediastinal lymphadenectomy which was performed at [facility] on February 11, 2024 for [...] Overview (05/09/2024): Last Assessment & Plan: Mr. Moya is a 73 yr. male presenting for their 2 week follow-up status post navigational bronchoscopy/radial EBUS with dye marking, da Vivian right lower lobe wedge with completion segmentectomy and mediastinal lymphadenectomy which was performed at [facility] on February 11, 2024 for [...] Encounters Date Type Department Care Team Description 03/08/2025 9:59 AM EDT - 03/08/2025 11:59 PM EDT Hospital Encounter [facility] MRI [address] [place] [address] Liver mass Discharge Disposition: Home or Self Care 02/27/2025 10:21 AM EDT - 02/27/2025 11:59 PM EDT Hospital Encounter [facility] Ultrasound [address] [place] [phone] Liver mass Discharge Disposition: Home or Self Care 02/12/2025 9:45 AM EDT - 02/12/2025 11:59 PM EDT Hospital Encounter [facility] CT Scan [address] [place] [phone] Other specified abnormal findings of blood chemistry Discharge Disposition: Home or Self Care from [...] Description 12/14/2025 10:30 AM EDT Office Visit [facility] Hematology Oncology [address] [place] [phone] Alexia Denton DO [address] [place] [address] Health Maintenance Due Date Last Done Comments Colorectal Cancer Screening: Colonoscopy 1950 COVID-19 Vaccine (#1) 1954 DTaP,Tdap,and Td Vaccines (1 - Tdap) 1968 Hepatitis A Vaccines (1 of 2 - Risk 2-dose series) 1968 Zoster Vaccines (1 of 2) 1968 Pneumococcal Vaccine: 50+ Years (1 of 1 - PCV) 11/30/1999 Hepatitis B Vaccines (1 of 3 - Risk 3-dose series) 2009 Cholesterol Screening (Lipid Panel) 04/16/2024 Falls Risk Assessment 04/16/2024 Hepatitis C Screening 04/16/2024 Medicare Annual Wellness Visit 04/16/2024 Social Influencers of Health Screening 04/16/2024 Depression Screening 07/09/2024 RSV Immunization Adult Patients (1 - 1-dose [...] Procedure Name Priority Date/Time Associated Diagnosis Comments MR ABDOMEN WO AND W CONTRAST Routine 03/08/2025 11:07 AM EDT Liver mass US ABDOMEN LIMITED Routine 02/27/2025 11 :10 AM EDT Liver mass CT ABDOMEN WO AND W CONTRAST Routine 02/12/2025 10:06 AM EDT Other specified abnormal findings of blood chemistry CREATININE, SERUM Routine 11/19/2024 11: 07 AM EDT Malignant neoplasm of lower lobe of right lung (CMS/HCC V24, CMS/HCC V28) from Last 3 Months or Most Recently Relevant to Health Maintenance Results * MR Abdomen wo and w Contrast (03/08/2025 11:07 AM EDT) Anatomical Region Laterality Modality Body Magnetic Resonan ce 03/11/2025 9:59 AM EDT Impressions 03/11/2025 10:26 AM EDT No hepatic metastatic disease or mass. No correlate for findings described on CT from 02/12/2025 -------- FINAL REPORT -------- Dictated By: VANESA ONEAL Dictated Date: 03/11/2025 09:59 ET Assigned Physician: VANESA ONEAL Reviewed and Electronically Signed By: VANESA ONEAL Signed Date: 03/11/2025 10:26 ET Workstation ID: [id number] Transcribed By: Self Edit Transcribed Date: 03/11/2025 09:59 ET Narrative 03/11/2025 10:26 AM EDT PROCEDURE: Abdominal MRI INDICATION: Liver mass TECHNIQUE: Multiplanar, multisequence MRI of the abdomen without and with contrast. 20 mL Dotarem injected intravenously without complication COMPARISON: Ultrasound 02/27/[address] 02/12/2025, CT 05/28/2024 FINDINGS: No focal liver lesions. No correlate seen for the finding described on the prior CT from 02/22/2025. There is no abnormal hepatic enhancement or diffusion signal abnormality. Biliary sludge within the gallbladder. No biliary duct dilatation or discrete stones in the gallbladder or biliary tree. Pancreas, spleen, and adrenal glands are within normal limits. Bilateral renal cysts. No solid or enhancing renal mass. No hydronephrosis. Portal vein is patent. Abdominal aortic aneurysm with stent graft in place, better assessed on prior CTs. Visualized portions of the bowel are notable for colonic diverticulosis. No bowel obstruction or wall thickening. No ascites or fluid collection. Visualized intrathoracic structures are within normal limits. Median sternotomy. No suspicious marrow replacing lesions throughout the bones. Epidermal inclusion cyst in the posterolateral aspect of the left lower thorax is unchanged. Soft tissues are otherwise unremarkable. Procedure Note Vanesa Oneal MD - 03/11/2025 PROCEDURE: Abdominal MRI INDICATION: Liver mass TECHNIQUE: Multiplanar, multisequence MRI of the abdomen without and withcontrast. 20 mL Dotarem injected intravenously without complication COMPARISON: Ultrasound 02/27/[address] 02/12/2025, CT 05/28/2024 FINDINGS: No focal liver lesions. No correlate seen for the finding described onthe prior CT from 02/22/2025. There is no abnormal hepatic enhancement ordiffusion signal abnormality. Biliary sludge within the gallbladder. No biliary duct dilatation ordiscrete stones in the gallbladder or biliary tree. Pancreas, spleen, and adrenal glands are within normal limits. Bilateral renal cysts. No solid or enhancing renal mass. Nohydronephrosis. Portal vein is patent. Abdominal aortic aneurysm with stent graft inplace, better assessed on prior CTs. Visualized portions of the bowel are notable for colonic diverticulosis.No bowel obstruction or wall thickening. No ascites or fluidcollection. Visualized intrathoracic structures are within normal limits. Mediansternotomy. No suspicious marrow replacing lesions throughout thebones. Epidermal inclusion cyst in the posterolateral aspect of the left lowerthorax is unchanged. Soft tissues are otherwise unremarkable. IMPRESSION: No hepatic metastatic disease or mass. No correlate for findingsdescribed on CT from 02/12/2025 -------- FINAL REPORT -------- Dictated By: VANESA ONEAL Dictated Date: 03/11/2025 09:59 ET Assigned Physician: VANESA ONEAL Reviewed and Electronically Signed By: VANESA ONEAL Signed Date: 03/11/2025 10:26 ET Workstation ID: [id number] Transcribed By: Self Edit Transcribed Date: 03/11/2025 09:59 ET us Brenden Latif MD IMG MRI PROCEDURES Final Re sult * US Abdomen Limited (02/27/2025 11:10 AM EDT) Anatomical Region Laterality Modality Body Ultrasound 03/03/2025 9:04 AM EDT Impressions 03/03/2025 9:13 AM EDT No sonographic correlate to the poorly defined area of low attenuation in the liver on CT. This precludes using ultrasound to localize and guide sampling. The finding is not detectable on noncontrast CT. Further evaluation might include follow-up CT in 3 months or liver mass protocol MRI -------- FINAL REPORT -------- Dictated By: Charlie Amor Dictated Date: 03/03/2025 09:04 ET Assigned Physician: Charlie Amor Reviewed and Electronically Signed By: Charlie Amor Signed Date: 03/03/2025 09:13 ET Workstation ID: [id number] Transcribed By: Self Edit Transcribed Date: 03/03/2025 09:04 ET Narrative 03/03/2025 9:13 AM EDT EXAMINATION: ABDOMEN ULTRASOUND, LIMITED CLINICAL INFORMATION: Liver mass on CT. COMPARISON: Selected portions of CT 02/12/25 TECHNIQUE: Ultrasound of the right upper quadrant FINDINGS: QUALITY: Adequate LI - RADS visualization score = Visualization A: No or minimal limitations BLAKELY for visualization scoring: A - Minimal limitations-unlikely to meaningfully affect sensitivity B - Moderate limitations-limitations may obscure small masses C - Severe limitations-limitations significantly lowers sensitivity for focal liver lesions PANCREAS: No suspicious abnormality in the visualized portions of the pancreas. Much of the pancreas was obscured. ABDOMINAL AORTA/IVC: Portions of the IVC are visualized without a definite abnormality. LIVER: The right lobe of the liver measures 16.0 cm. The liver contour appears smooth. The portal tracts are visualized. Sound penetrates the liver and the diaphragm is visualized. There is no convincing sonographic correlate to the poorly defined area of abnormal attenuation on CT. BILIARY: The gallbladder is fluid-filled. No cholelithiasis, gallbladder wall thickening, pericholecystic fluid or biliary dilation. COMMON BILE DUCT: The common duct measures 0.4 cm which is within normal limits. GALLBLADDER TENDERNESS: There is no reported tenderness to transducer pressure over the gallbladder. KIDNEYS: Right renal length: 11.9 cm in greatest length Left renal length: Not examined. There is no dilation of the intrarenal collecting system in the right kidney. There is no suspicious focal lesion demonstrated in the right kidney. There are cysts present. The largest measures 3.9 cm. There is no shadowing calculus demonstrated in the right kidney. FLUID: No intraperitoneal fluid demonstrated in the upper abdomen Procedure Note Charlie Amor MD - 03/03/2025 EXAMINATION: ABDOMEN ULTRASOUND, LIMITED CLINICAL INFORMATION: Liver mass on CT. COMPARISON: Selected portions of CT 02/12/25 TECHNIQUE: Ultrasound of the right upper quadrant FINDINGS: QUALITY: Adequate LI - RADS visualization score = Visualization A: No or minimallimitations BLAKELY for visualization scoring: A - Minimal limitations-unlikely to meaningfully affect sensitivity B - Moderate limitations-limitations may obscure small masses C - Severe limitations-limitations significantly lowers sensitivity forfocal liver lesions PANCREAS: No suspicious abnormality in the visualized portions of thepancreas. Much of the pancreas was obscured. ABDOMINAL AORTA/IVC: Portions of the IVC are visualized without a definiteabnormality. LIVER: The right lobe of the liver measures 16.0 cm. The liver contourappears smooth. The portal tracts are visualized. Sound penetrates the liver and thediaphragm is visualized. There is no convincing sonographic correlate to the poorly defined area ofabnormal attenuation on CT. BILIARY: The gallbladder is fluid-filled. No cholelithiasis, gallbladderwall thickening, pericholecystic fluid or biliary dilation. COMMON BILE DUCT: The common duct measures 0.4 cm which is within normallimits. GALLBLADDER TENDERNESS: There is no reported tenderness to transducerpressure over the gallbladder. KIDNEYS: Right renal length: 11.9 cm in greatest length Left renal length: Not examined. There is no dilation of the intrarenal collecting system in the rightkidney. There is no suspicious focal lesion demonstrated in the right kidney.There are cysts present. The largest measures 3.9 cm. There is no shadowing calculus demonstrated in the right kidney. FLUID: No intraperitoneal fluid demonstrated in the upper abdomen IMPRESSION: No sonographic correlate to the poorly defined area of low attenuation inthe liver on CT. This precludes using ultrasound to localize and guide sampling. The finding is not detectable on noncontrast CT. Further evaluation might include follow-up CT in 3 months or liver massprotocol MRI -------- FINAL REPORT -------- Dictated By: Charlie Amor Dictated Date: 03/03/2025 09:04 ET Assigned Physician: Charlie Amor Reviewed and Electronically Signed By: Charlie Amor Signed Date: 03/03/2025 09:13 ET Workstation ID: [id number] Transcribed By: Self Edit Transcribed Date: 03/03/2025 09:04 ET us Brenden Latif MD IMG US PROCEDURES Final Res ult * CT Abdomen wo and w Contrast (02/12/2025 10:06 AM EDT) Anatomical Region Laterality Modality Body Computed Tomogra phy 02/17/2025 2:07 PM EDT Impressions 02/17/2025 2:34 PM EDT There is a somewhat atypical subtle area of abnormal attenuation in the right lobe of the liver. In the presence of a history of lung cancer further evaluation is warranted. Recommend ultrasound targeting the right lobe to determine if there is a lesion amenable to sampling. Metastatic disease or an unusual manifestation of focal fatty change could give this appearance. -------- FINAL REPORT -------- Dictated By: Charlie Amor Dictated Date: 02/17/2025 14:07 ET Assigned Physician: Charlie Amor Reviewed and Electronically Signed By: Charlie Amor Signed Date: 02/17/2025 14:34 ET Workstation ID: [id number] Transcribed By: Self Edit Transcribed Date: 02/17/2025 14:07 ET Narrative 02/17/2025 2:34 PM EDT EXAMINATION: CT ABDOMEN WITHOUT AND WITH IV CONTRAST CLINICAL INFORMATION: Elevated liver function testing. Previous chest CT report indicates history of lung cancer. COMPARISON: Portions of a previous CT 05/28/24 TECHNIQUE: Multidetector CT. Helical examination of the abdomen. Imaging performed before and after the IV administration of nonionic contrast. Reformatting in the coronal and sagittal planes. DLP: 3182 mGy-cm Dose optimization was performed including the use of low-dose iterative reconstruction technique with automatic exposure control based on patient size. Type of contrast: ISOVUE 370 Volume of IV contrast: 85 mL Volume of contrast discarded: 0 mL FINDINGS: LIVER: The right lobe of the liver measures 17.5 cm. The liver contour is smooth. There is a subtle abnormality in the posterolateral aspect of hepatic segment 7 which demonstrates diminished enhancement in the portal phase. In the coronal plane this appears masslike (607/72). This does not demonstrate early arterial enhancement. This becomes nearly isodense on the delayed phase (no washout) 02/12/25-6.0 x 4.2 cm () 05/28/24-not present There are heterogeneous areas of altered attenuation elsewhere in the liver on the portal phase. BILIARY TRACT: No opaque gallstone. No biliary dilation. There may be a phrygian cap. SPLEEN: Normal size. No focal lesion. PANCREAS: No suspicious abnormality. ADRENAL GLANDS: No suspicious abnormality. KIDNEYS: Not completely included. There is no dilation of the intrarenal collecting system. There are multiple cysts including an exophytic cyst with some thin curvilinear calcification deforming the contour of the left kidney (Bosniak 2) GASTROINTESTINAL TRACT: The stomach is not well distended. The colon is not well distended. ABDOMINAL WALL: No significant hernia is appreciated. LYMPHOVASCULAR STRUCTURES AND FLUID: There has been placement of an endovascular stent graft within the abdominal aorta. There is some ectasia of the celiac axis. There are some peripancreatic lymph nodes and periportal lymph nodes which are nonspecific. VISUALIZED LOWER CHEST: Evidence of right lower lung surgery. There are some reticular opacities in the right lower lung. There are a few nonspecific groundglass and reticular opacities in the left lower lung. MUSCULOSKELETAL: No acute or suspicious osseous abnormality. There has been spine surgery with absence of the spinous processes. Procedure Note Charlie Amor MD - 02/17/2025 EXAMINATION: CT ABDOMEN WITHOUT AND WITH IV CONTRAST CLINICAL INFORMATION: Elevated liver function testing. Previous chest CT report indicateshistory of lung cancer. COMPARISON: Portions of a previous CT 05/28/24 TECHNIQUE: Multidetector CT. Helical examination of the abdomen. Imaging performed before and after the IV administration of nonioniccontrast. Reformatting in the coronal and sagittal planes. DLP: 3182 mGy-cm Dose optimization was performed including the use of low-dose iterativereconstruction technique with automatic exposure control based on patientsize. Type of contrast: ISOVUE 370 Volume of IV contrast: 85 mL Volume of contrast discarded: 0 mL FINDINGS: LIVER: The right lobe of the liver measures 17.5 cm. The liver contour issmooth. There is a subtle abnormality in the posterolateral aspect of hepaticsegment 7 which demonstrates diminished enhancement in the portal phase.In the coronal plane this appears masslike (607/72). This does notdemonstrate early arterial enhancement. This becomes nearly isodense onthe delayed phase (no washout) 02/12/25-6.0 x 4.2 cm () 05/28/24-not present There are heterogeneous areas of altered attenuation elsewhere in theliver on the portal phase. BILIARY TRACT: No opaque gallstone. No biliary dilation. There may be aphrygian cap. SPLEEN: Normal size. No focal lesion. PANCREAS: No suspicious abnormality. ADRENAL GLANDS: No suspicious abnormality. KIDNEYS: Not completely included. There is no dilation of the intrarenalcollecting system. There are multiple cysts including an exophytic cystwith some thin curvilinear calcification deforming the contour of the leftkidney (Bosniak 2) GASTROINTESTINAL TRACT: The stomach is not well distended. The colon is not well distended. ABDOMINAL WALL: No significant hernia is appreciated. LYMPHOVASCULAR STRUCTURES AND FLUID: There has been placement of anendovascular stent graft within the abdominal aorta. There is some ectasiaof the celiac axis. There are some peripancreatic lymph nodes andperiportal lymph nodes which are nonspecific. VISUALIZED LOWER CHEST: Evidence of right lower lung surgery. There aresome reticular opacities in the right lower lung. There are a fewnonspecific groundglass and reticular opacities in the left lower lung. MUSCULOSKELETAL: No acute or suspicious osseous abnormality. There hasbeen spine surgery with absence of the spinous processes. IMPRESSION: There is a somewhat atypical subtle area of abnormal attenuation in theright lobe of the liver. In the presence of a history of lung cancerfurther evaluation is warranted. Recommend ultrasound targeting the right lobe to determine if there is alesion amenable to sampling. Metastatic disease or an unusual manifestation of focal fatty change couldgive this appearance. -------- FINAL REPORT -------- Dictated By: Charlie Amor Dictated Date: 02/17/2025 14:07 ET Assigned Physician: Charlie Amor Reviewed and Electronically Signed By: Charlie Amor Signed Date: 02/17/2025 14:34 ET Workstation ID: [id number] Transcribed By: Self Edit Transcribed Date: 02/17/2025 14:07 ET us Brenden Latif MD IMG CT PROCEDURES Final Res ult * Creatinine (11/19/2024 11:07 AM EDT) Creatinine 0.99 0.70 - 1.30 mg/dL LAB CHEMISTRY METHOD 11/19/2024 1:19 PM EDT [facility] eGFR 80 >=60 mL/min/1. 73m2 LAB CHEMISTRY METHOD 11/19/2024 1:19 PM EDT [facility] Comment:Calculation based on the Chronic Kidney Disease Epidemiology Collaboration (CKD-EPI) equation refit without adjustment for race. 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
--- OUTSIDE RECORDS SUMMARY | 2025-04-30 15:29 | XMS_ITS | Clinical Summary ---
Author Organization [facility] Address [address] [place] [address] Care Team Providers Care Event Marketing Specialist Name Role Phone Brenden Latif MD Primary Care Provider [phone] Allergies No known active allergies Medications Medication [...] Hepatitis C Screening 1950 COVID-19 Vaccine (#1) 06[birth year]01/1950 Depression Screening 1961 Preventative Health Evaluation 11/30/1967 DTap / Tdap / Td (1 - Tdap) 1968 Colon Cancer Screening (Colonoscopy) 1994 Shingrix-Zoster Vaccine (1 of 2) 11/30/1999 Fall Risk Assessment 2014 Pneumococcal Vaccine (1 of 1 - PCV) 2014 RSV Adult > 60+ Yrs or Pregn ant (1 - 1-dose 75+ series) 2024 Influenza Vaccine (#1) 2025 Hepatitis B Vaccines Aged Out No long er eligible based on patient's age to complete this topic RSV Ped < 20 months Aged Out No longe r eligible based on patient's age to complete this topic Care Teams Event Marketing Specialist Relationship Specialty Start Date End Date Brenden Latif MD [address] [place] [address] Drive [address] [place] [phone] PCP - General Internal Medicine 02/29/24
== END 2025-04-30 13:03 | disposition home or self-care (01) ==
LOC: HO.HCS 12:18
PROVIDERS: PCP Internal Medicine; Visit Provider Internal Medicine
DX: I25.10 Atherosclerotic heart disease of native coronary artery without angina pectoris (principal); Z95.1 Presence of aortocoronary bypass graft; I48.0 Paroxysmal atrial fibrillation; I10 Essential (primary) hypertension
CPT/HCPCS: 93010; 99214; G2211

== ENCOUNTER → 2025-04-30 12:18 | Outpatient (BNVA) | payer MEDICARE, SELFPAY | PROVIDERS: PCP Internal Medicine; Visit Provider Internal Medicine | DX: I48.0 Paroxysmal atrial fibrillation (principal); I25.10 Atherosclerotic heart disease of native coronary artery without angina pectoris; I10 Essential (primary) hypertension; Z87.891 Personal history of nicotine dependence; Z85.118 Personal history of other malignant neoplasm of bronchus and lung | CPT/HCPCS: 93005; 99212 ==

== ENCOUNTER 2025-05-11 10:16 | Outpatient (REF) | payer MEDICARE, SELFPAY ==
--- OUTSIDE RECORDS SUMMARY | 2024-12-04 06:00 | XMS_ITS ---
Author Organization Brenden Latif MD Address [address] [phone] Care Team Providers Care Comsec Manager Name Role Phone Brenden Latif Primary Care Provider [phone] Allergies No Known Allergies REASON FOR VISIT COMP EXAM, CBACK COMP MET PANEL Medications Medication SIG (Take, Route, Frequency, Duration) Notes Start Date End Date Status Metoprolol Tartrate 50 MG 1 tablet with food Orally Twice a day Active Atorvastatin Calcium 80 MG TAKE 1 TABLET BY MOUTH DAILY Active Magnesium 400 MG as directed Orally Not-Taking amLODIPine Besylate 5 MG TAKE 1 TABLET B Y MOUTH EVERY DAY Active Nizoral 2 % as directed External ly daily for 30 days Not-Taking Ezetimibe 10 MG 1 tablet Orally Once a day Active Amoxicillin 500 MG 4 capsule Orally one hour before dentist for 3 Active Aspir-81 81 MG 1 tablet Orally Once a day Active Vitamin D3 125 MCG (5000 UT) 1 capsule Orally Once a day for 30 day(s) Active Social History Tobacco Use: Social History Observation [...] Never (0 point) Points 1 Interpretation Negative Vital Signs Blood pressure systolic 142 mm Hg 12/05/19 25 Blood pressure diastolic 54 mm Hg 025 Height 61 in 12/04/2024 Weight 228 lbs 12/04/2024 BMI 43.08 kg/m2 12/04/2024 weight is up 4 pounds since 05-13-24 Encounters Encounter Location Date Provider Diagnosis Brenden Latif MD [address] [place] [address] [phone] 12/04/2024 Brenden Latif Pure hypercholestero lemia E78.00 ; Essential hypertension I10 ; History of lung cancer Z85.118 ; Adenomatous rectal polyp D12.8 ; Elevated LFTs R79.89 and Prediabetes R73.03 Assessments Encounter Date Diagnosis (ICD Code) Assessment Notes Treatment Notes Treatment Clinical Notes Section Notes 12/04/2024 Pure hypercholesterolemia (ICD-10 - E78.00) doing well but may have to decrease statin, will continue to monitor off medication 12/04/2024 Essential hypertensi on (ICD-10 - I10) well controlled, will continue current regiment 12/04/2024 History of lung canc er (ICD-10 - Z85.118) no evidence of recurrance 12/04/2024 Adenomatous rectal polyp (ICD-10 - D12.8) needs appt with dr jon for colonoscopy this year 12/04/2024 Elevated LFTs (ICD-1 0 - R79.89) stop atorvastin for one month and recheck the lft 12/04/2024 Prediabetes (ICD-10 - R73.03) stable, no need for medication at this time Plan Of Treatment Treatment Notes Assessment Notes Pure hypercholesterolemia doing well but may have to decrease statin, will continue to monitor off medication Essential hypertension well controlled, will continue current regiment History of lung cancer no evidence of re currance Adenomatous rectal polyp needs appt with dr jon for colonoscopy this year Elevated LFTs stop atorvastin for one month and recheck the lft Prediabetes stable, no need for medication at this time Pending Test Test Name Order Date UA ClnCatch+Micro w/rflx Cult 12/04/2024 Liver Panel 12/04/2024 Next Appt Details Follow Up: 4 Weeks, Reason: Provider Name:Brenden South ier, 05/18/2025 01:30:00 PM, [address] [place] [address], [address] [place] [address], [phone], Provider Name:Brenden South ier, 12/03/2025 07:00:00 AM, [address] [place] [address], [address] [place] [address], [phone], Provider Name:Brenden South ier, 12/08/2025 10:30:00 AM, [address] [place] [address], Suite [facility], [place], [place], [phone], Progress Notes * Aidan MOYA MD (Ryszard) OB:1950 (74 yo M)Acc No.[id number]:12/04/2024 Patient: Aidan JOHNSON (Ryszard) Provider: Ugo Latif MD :1950 A ge:74 Y S ex:Male Date:12/04/2024 Address: [address] , [facility] Subjective: * Chief Complaints: * C OMP EXAMCBACK COMP MET PANEL * HPI: D epression Screening: PHQ-9 L ittle interest or pleasure in doing things N ot at all, F eeling down, depressed, or hopeless N ot at all, T rouble falling or staying asleep, or sleeping too much N ot at all, F eeling tired or having little energy N ot at all, P oor appetite or overeating N ot at all, F eeling bad about yourself or that you are a failure, or have let yourself or your family down N ot at all, T rouble concentrating on things, such as reading the newspaper or watching television N ot at all, M oving or speaking so slowly that other people could have noticed; or the opposite, being so fidgety or restless that you have been moving around a lot more than usual N ot at all, T houghts that you would be better off or of hurting yourself in some way N ot at all, T otal Score 0 . I nterpretation and Intervention D epression Screening Findings N egative, F ollow-Up for Depression : review of PHQ-9 found negative result, no follow-up needed. C ommunication Needs: Communication Needs D oes the patient have a hearing impairment N o, D oes the patient have a vision impairment? Y es, I f yes, what is the vision impairment? G lasses, D oes the patient have a cognition impairment? N o. F all Risk: History H ave you had any falls with injury in the past year? N o, H ave you had two or more falls in the past year? N o. S KAIT Questions: SDOH Questions I n the past year have you been worried about losing housing? N o, I n the past year have you or any family members you live with been unable to get any of the following when it was really needed? Check all that apply: N one. S ymptom(s): patient is a 74 yo male here for visit with review of recent labs and follow up of chronic issues. * ROS: G eneral/Constitutional: Change in appetite d enies. C hills d enies. F ever d enies. O phthalmologic: Blurred vision d enies. D ischarge d enies. P ain d enies. E NT: Decreased hearing d enies. S ore throat d enies.?Swollen glands d enies. E ndocrine: Cold intolerance d enies. E xcessive thirst d enies. H eat intolerance d enies. W eight loss d enies. R espiratory: Cough d enies. S hortness of breath at rest d enies. S hortness of breath with exertion d enies. W heezing d enies. C ardiovascular: Chest pain at rest d enies. C hest pain with exertion?denies. I rregular heartbeat d enies. S hortness of breath d enies. ? G astrointestinal: Abdominal pain d enies. C hange in bowel habits d enies. D iarrhea d enies. N ausea d enies. R ectal bleeding d enies. V omiting d enies . G enitourinary: Blood in urine d enies. D ifficulty urinating d enies. F requent urination d enies. M usculoskeletal: Painful joints d enies. W eakness d enies. ? S kin: Dry skin d enies. I tching d enies. D enies?Mole(s), changes in moles, new moles or any lesions of concern. D enies P hotosensitivity. R nisreen d enies. N eurologic: Dizziness d enies. F ainting d enies. H eadache?denies. * Medical History: * Surgical History: * Hospitalization/Major Diagno stic Procedure: * Family History: F ather: 58 yrs, diagnosed with Cancer. M other: 94 yrs, diagnosed with Diabetes. 4 brother(s) . 2 daughter(s) . . Father- Lung cancer Mother- Breast cancer, No pertinent family medical history, Denies /substance abuse family history 1 brother is Bipolar, Denies mental health/substance abuse family history, Denies mental health/substance abuse family history, No pertinent family medical history. * Social History: T obacco Use: T obacco Use/Smoking P atient is a f ormer smoker, H ow long has it been since you last smoked? 5 -10 years, A dditional Findings: Tobacco Non-User F ormer smoker, currently using no form of tobacco. D rugs/Alcohol: A lcohol Screen D id you have a drink containing alcohol in the past year? Y es, H ow often did you have a drink containing alcohol in the past year? M onthly or less (1 point), H ow many drinks did you have on a typical day when you were drinking in the past year? 1 or 2 drinks (0 point), H ow often did you have 6 or more drinks on one occasion in the past year? N ever (0 point), P oints 1 , I nterpretation N egative. M iscellaneous: C affeine: 2-3 cups per day. Children: yes. Exercise: yes, 2-3 times per week walks for 30 minutes. Home smoke detector use: yes. Marital status: . Pets: cats: dogs:1 dog. Travel outside of the [place]: no. * Medications: T akingVitamin D3 125 MCG (5000 UT) Capsule 1 capsule Orally Once a day Aspir-81 81 MG Tablet Delayed Release 1 tablet Orally Once a day Amoxicillin 500 MG Capsule 4 capsule Orally one hour before dentist Ezetimibe 10 MG Tablet 1 tablet Orally Once a day Atorvastatin Calcium 80 MG Tablet TAKE 1 TABLET BY MOUTH DAILY Metoprolol Tartrate 50 MG Tablet 1 tablet with food Orally Twice a day amLODIPine Besylate 5 MG Tablet TAKE 1 TABLET BY MOUTH EVERY DAY Taking Vitamin D3 125 MCG (5000 UT) Capsule 1 capsule Orally Once a day Taking Aspir-81 81 MG Tablet Delayed Release 1 tablet Orally Once a day Taking Amoxicillin 500 MG Capsule 4 capsule Orally one hour before dentist Taking Ezetimibe 10 MG Tablet 1 tablet Orally Once a day Taking Atorvastatin Calcium 80 MG Tablet TAKE 1 TABLET BY MOUTH DAILY Taking Metoprolol Tartrate 50 MG Tablet 1 tablet with food Orally Twice a day Taking amLODIPine Besylate 5 MG Tablet TAKE 1 TABLET BY MOUTH EVERY DAY Not-Taking/PRNMagnesium 400 MG Tablet as directed Orally Nizoral 2 % Shampoo as directed Externally daily Not-Taking/PRN Magnesium 400 MG Tablet as directed Orally Not-Taking/PRN Nizoral 2 % Shampoo as directed Externally daily DiscontinuedClopidogrel Bisulfate 75 MG Tablet 1 tablet Orally Once a day Medication List reviewed and reconciled with the patientDiscontinued Clopidogrel Bisulfate 75 MG Tablet 1 tablet Orally Once a day Medication List reviewed and reconciled with the patient * Allergies: N .K.D.A.yes[Allergies Verified] Objective: * Vitals: H t: 61, Wt: 228, BMI:43.08, BP:142/54, Wt-k.42. weight is up 4 pounds since 05-13-24. * P ast Orders: L ab:PSA,Total (Free>4and<10) (Order Date - 11/27/2024) (Collection Date & Time - 11/27/2024 08:15 AM) Value Reference Range PSA,Total (Free>4and<10) 0.70 0.00-4.00 - ng/ mL L ab:Hemoglobin A1c (Order Date - 11/27/2024) (Collection Date & Time - 11/27/2024 08:15 AM) Value Reference Range Hemoglobin A1c % 5.9 <6.0 - % Estimated Average Glucose 123 - mg/dL L ab:Complete Blood Count Auto Diff (Order Date - 11/27/2024) (Collection Date & Time - 11/27/2024 08:15 AM) Value Reference Range White Blood Count 12.1 H 4.8-10.8 - X10*3/uL Red Blood Count 4.87 4.60-5.80 - X10*6/uL Hemoglobin 14.8 14.0-18.0 - g/dl Hematocrit 45.3 42.0-52.0 - % Mean Corpuscular Volume 93.0 80.0-98.0 - fL Mean Corpuscular Hemoglobin 30.4 27.0-33.0 - pg Mean Corpuscular HGB Conc 32.7 31.0-36.0 - g/ dl Red Cell Distribution Width 14.3 11.0-16.0 - % Platelet Count 351 160-400 - X10*3/uL Mean Platelet Volume 10.1 9.4-12.4 - fL Neutrophils Percent Auto 61.6 45-73 - % Imm Gran Pct Auto 1.3 H 0.0-0.4 - % Lymphocytes Percent Auto 27.3 20-40 - % Monocytes Percent Auto 6.7 2-11 - % Eosinophils Percent Auto 2.7 0-4 - % Basophils Percent Auto 0.4 0-2 - % NRBC Pct Auto 0.0 0.0-0.2 - /100WBC Neutrophils Absolute Auto 7.4 2.0-8.3 - x10* 3/uL Imm Gran Abs Auto 0.16 H 0.00-0.03 - X10*3/uL Lymphocytes Absolute Auto 3.3 1.2-4.9 - X10* 3/uL Monocytes Absolute Auto 0.8 0.1-1.2 - X10*3/ uL Eosinophils Absolute Auto 0.3 0.0-0.4 - X10* 3/uL Basophils Absolute Auto 0.1 0.0-0.2 - X10*3/ uL NRBC Abs Auto 0.000 0.0-0.012 - X10*3/uL L ab:Lipid Panel (Order Date - 11/27/2024) (Collection Date & Time - 11/27/2024 08:15 AM) Value Reference Range Triglycerides 78 <150 - mg/dL Cholesterol 110 <200 - mg/dL LDL Cholesterol Calculated 67 <100 - mg/dL HDL Cholesterol 28 L >40 - mg/dL * Examination: G eneral Examination: GENERAL APPEARANCE: w ell developed, well nourished, in no acute distress. HEAD: n ormocephalic, atraumatic. EYES: p upils equal, round, reactive to light and accommodation, sclera non-icteric. EARS: n ormal. ORAL CAVITY: m ucosa moist. THROAT: c lear. NECK/THYROID: n kody supple, full range of motion, no cervical lymphadenopathy, no bruits. SKIN: w arm and dry, no suspicious lesions. HEART: r egular rate and rhythm, S1, S2 normal, no murmurs.? LUNGS: c lear to auscultation bilaterally. ABDOMEN: s oft, nontender, nondistended, bowel sounds present, normal, no organomegaly , no masses palpable. RECTAL EXAM: n ormal tone, no external hemorrhoids, no masses palpable, prostate normal, stool guaiac negative. MALE GENITOURINARY: c ircumcised, testes descended bilaterally, no testicular mass. EXTREMITIES: n o clubbing, cyanosis, or edema. NEUROLOGIC: n onfocal, motor strength normal upper and lower extremities, sensory exam intact. Assessment: * Assessment: 1. P ure hypercholesterolemia - E78.00 (Primary) 2 . E ssential hypertension - I10 3 . H istory of lung cancer - Z85.118 4 . A denomatous rectal polyp - D12.8 5 . E levated LFTs - R79.89 6 . P rediabetes - R73.03 Plan: * Treatment: 2. E ssential hypertension L AB: UA ClnCatch+Micro w/rflx Cult Notes: well controlled, will continue current regiment 3. H istory of lung cancer Notes: no evidence of recurrance 4. A denomatous rectal polyp Notes: needs appt with dr jon for colonoscopy this year 5. E levated LFTs L AB: Liver Panel (Ordered for 01/01/2025) Notes: stop atorvastin for one month and recheck the lft 6. P rediabetes Notes: stable, no need for medication at this time * Procedure Codes: * Follow Up: 4 Weeks * * Sign off status: Completed true * Provider: Ugo Latif MD Date: 0 12/04/2024 Generated for John schuster/Jcarlos/Earlineitting on: 07/11/2024 12:18 PM EST History and Physical Notes * HPI (History of Present Illness) Category Sub-Category Detail Notes Category Not es Symptom(s) patient is a 74 yo male here for visit with review of recent labs and follow up of chronic issues Depression Screening PHQ-9 Little inte rest or pleasure in doing things: Not at all Feeling down, depressed, or hopeless: No t at all Trouble falling or staying asleep, or sl eeping too much: Not at all Feeling tired or having little energy: N ot at all Poor appetite or overeating: Not at all Feeling bad about yourself o r that you are a failure, or have let yourself or your family down: Not at all Trouble concentrating on thi ngs, such as reading the newspaper or watching television: Not at all Moving or speaking so slowly that other people could have noticed; or the opposite, being so fidgety or restless that you have been moving around a lot more than usual: Not at all Thoughts that you would be b adrienne off or of hurting yourself in some way: Not at all Total Score: 0 Interpretation and Intervention Depression Juan lockett Findings: Negative Follow-Up for Depression: : review of PH Q-9 found negative result, no follow-up needed SDOH Questions SDOH Questions In the past year have you been worried about losing housing?: No In the past year have you or any family members you live with been unable to get any of the following when it was really needed? Check all that apply:: None Fall Risk History Have you had any falls with injury i n the past year?: No Have you had two or more falls in the year?: No Communication Needs Communication Needs Does the patient have a hearing impairment: No Does the patient have a vision impairmen t?: Yes If yes, what is the vision impairment?: Glasses Does the patient have a cognition impair ment?: No Examination Category Sub-Category Detail Notes Category Not [...] clubbing, cyanosi s, or edema MALE GENITOURINARY: circumcised, testes descended bilaterally, no testicular mass RECTAL EXAM: normal tone, no exte rnal hemorrhoids, no masses palpable, prostate normal, stool guaiac negative ORAL CAVITY: mucosa moist
--- OUTSIDE RECORDS SUMMARY | 2024-12-18 05:46 | XMS_ITS ---
Author Organization Brenden Latif MD Address [address] [place] [phone] Care Team Providers Care Fashion Patternmaker Name Role Phone Brenden Latif Primary Care Provider [phone] REASON FOR VISIT Kidney US due Encounters Encounter Location Date Provider Diagnosis Brenden Latif MD [address] [place] [phone] 12/18/2024 Brenden Latif Renal cysts, acquired, bilateral N28.1 Assessments Encounter Date Diagnosis (ICD Code) Assessment Notes Treatment Notes Treatment Clinical Notes Section Notes 12/18/2024 Renal cysts, acquired, bilateral (ICD-10 - N28.1) Order made and put into the future folder for Plan Of Treatment Treatment Notes Assessment Notes Renal cysts, acquired, bilateral Order m crissy and put into the future folder for Pending Test Test Name Order Date US abdomen complete 12/18/2024 Next Appt Details Provider Name:Brenden hutchinsonr, 05/18/2025 01:30:00 PM, [address], [address], [place], [place], [phone], Provider Name:Brenden South ier, 12/03/2025 07:00:00 AM, [address], [address], [place], [place], [phone], Provider Name:Brenden South ier, 12/08/2025 10:30:00 AM, [address], [address], [place], [place], [phone], Progress Notes * Aidan MOYA MD (Ryszard) OB:1950 (74 yo M)Acc No.[id number]:12/18/2024 Patient: Aidan JOHNSON (Ryszard) :1950 A ge:74 Y S ex:Male Address: [address] , [place] [address] Subjective: * Chief Complaints: * K idney US due * Medical History: * Surgical History: * Hospitalization/Major Diagno stic Procedure: * Medications: Objective: * Vitals: * Physical Examination: Assessment: * Assessment: 1. R enal cysts, acquired, bilateral - N28.1 Plan: * Treatment: * Procedure Codes: * true * Date: Generated for John schuster/Jcarlos/eTelsasmitting on: 07/11/2024 12:19 PM EST
--- OUTSIDE RECORDS SUMMARY | 2024-12-23 07:57 | XMS_ITS ---
Author Organization Brenden Latif MD Address [address] [place] [phone] Care Team Providers Care Inside Upholsterer Name Role Phone Brenden Latif Primary Care Provider [phone] REASON FOR VISIT med for dental visit Medications Medication SIG (Take, Route, Fr equency, Duration) Notes Start Date End Date Status Amoxicillin 500 MG 4 capsule Orally one hour before dentist for 1 days Active Encounters Encounter Location Date Provider Diagnosis Brenden Latif MD [address] [place], [place] [phone] 12/23/2024 Brenden Latif Plan Of Treatment Medication Medication Name Sig Start Date Stop Date Notes Amoxicillin 500 MG 4 capsule Orally one hour before dentist for 1 days Next Appt Details Provider Name:Brenden hsu, 05/18/2025 01:30:00 PM, [address], [address] [facility], [place], [place], [phone], Provider Name:Brenden South ier, 12/03/2025 07:00:00 AM, [address], [address], [place], [place], [phone], Provider Name:Brenden South ier, 12/08/2025 10:30:00 AM, [address], [address], [place], [place], [phone], Progress Notes * Aidan MOYA MD (Ryszard) OB:1950 (74 yo M)Acc No.[id number]:12/23/2024 Patient: Aidan JOHNSON (Ryszard) :1950 A ge:74 Y S ex:Male Address: [place] [address] * Refills Refill Amoxicillin Capsule, 500 MG, Orally, 12, 4 capsule, one hour before dentist, 1 days, Refills=3 * true * Date: Generated for John schuster/Jcarlos/Karrismitting on: 07/11/2024 12:18 PM EST
--- OUTSIDE RECORDS SUMMARY | 2025-01-01 02:00 | XMS_ITS ---
Author Organization Brenden Latif MD Address [address] [place] [phone] Care Team Providers Care Union Representative Name Role Phone Bhavya Brenden Primary Care Provider REASON FOR VISIT liver panel Encounters Encounter Location Date Provider Diagnosis Brenden Latif MD [address] [place] [phone] 01/01/2025 Brenden Latif Elevated LFTs R79.89 Assessments Encounter Date Diagnosis (ICD Code) Assessment Notes Treatment Notes Treatment Clinical Notes Section Notes 01/01/2025 Elevated LFTs (ICD-10 - R79.89) Plan Of Treatment Pending Test Test Name Order Date Liver Panel 01/01/2025 Next Appt Details Provider Name:Brenden hsu, 05/18/2025 01:30:00 PM, [address], [address] [facility], [place], [place], [phone], Provider Name:Brenden hsu, 12/03/2025 07:00:00 AM, [address], [address], [place], [place], [phone], Provider Name:Brenden South ier, 12/08/2025 10:30:00 AM, [address], [address], [place], [phone], Progress Notes * Aidan MOYA MD (Ryszard) OB:1950 (74 yo M)Acc No.[id number]:01/01/2025 Progress Note Patient: Humza DWYER Aidan (Cosme) Pavan Provider: Ugo Latif MD :1950 A ge:74 Y S ex:Male Date:01/01/2025 Address: [address] [place] [address] Subjective: * Chief Complaints: * 1 . Liver panel. * Medical History: Objective: * Vitals: Assessment: * Assessment: 1. E levated LFTs - R79.89 (Primary) Plan: * Treatment: * Procedure Codes: 3 6415 VENIPUNCT, ROUTINE* * * The named appointment provid er may or may not be the originator of this progress note, and it is not deemed complete until electronically signed by the appointment provider. Sign off status: Pending * Provider: Ugo Latif MD Date: 0 01/01/2025 Generated for John schuster/Jcarlos/Karrismitting on: 07/11/2024 12:19 PM EST
--- OUTSIDE RECORDS SUMMARY | 2025-01-08 05:45 | XMS_ITS ---
Author Organization Brenden Latif MD Address [address] [place] [phone] Care Team Providers Care Oxyacetylene Burner Name Role Phone Brenden Latif Primary Care Provider Allergies No Known Allergies REASON FOR VISIT 4 week, Accompanied by Medications Medication SIG (Take, Route, Frequency, Duration) Notes Start Date End Date Status Vitamin D3 125 MCG (5000 UT) 1 capsule Orally Once a day for 30 day(s) Active Aspir-81 81 MG 1 tablet Orally Once a day Active Ezetimibe 10 MG 1 tablet Orally Once a day Active Atorvastatin Calcium 80 MG TAKE 1 TABLET BY MOUTH DAILY Not-Taking Metoprolol Tartrate 50 MG 1 tablet with food Orally Twice a day Active amLODIPine Besylate 5 MG TAKE 1 TABLET B Y MOUTH EVERY DAY for 90 Active Amoxicillin 500 MG 4 capsule Orally one hour before dentist for 1 days Active Magnesium 400 MG as directed Orally Not-Taking Nizoral 2 % as directed External ly daily for 30 days Not-Taking Vital Signs Blood pressure systolic 108 mm Hg 01/09/20 25 Blood pressure diastolic 64 mm Hg 025 Height 61 in 01/08/2025 Weight 223 lbs 01/08/2025 BMI 42.13 kg/m2 01/08/2025 weight is down 5 pounds [facility] e 12-04-24 Encounters Encounter Location Date Provider Diagnosis Brenden Latif MD [address] [place] [address] Drive [address] [place], [place] [phone] 01/08/2025 Brenden Latif Night sweats R61 ; ELLA (obstructive sleep apnea) G47.33 ; Elevated LFTs R79.89 ; Encounter for preprocedural laboratory examination Z01.812 and Blood tests prior to treatment or procedure Z01.812 Assessments Encounter Date Diagnosis (ICD Code) Assessment Notes Treatment Notes Treatment Clinical Notes Section Notes 01/08/2025 Night sweats (ICD-10 - R61) 01/08/2025 ELLA (obstructive sleep apnea) (ICD-10 - G47.33) 01/08/2025 Elevated LFTs (ICD-10 - R79.89) ORDER FAXED TO [facility] FOR SCHEDULING @ [phone] 01/08/2025 Encounter for preprocedural laboratory examination (ICD-10 - Z01.812) 01/08/2025 Blood tests prior to treatment or procedure (ICD-10 - Z01.812) WILL BE FAXED TO [facility] WHEN RESULTS AVAILABLE Plan Of Treatment Treatment Notes Assessment Notes Elevated L[facility]s [facility] @ [phone] Blood tests prior to treatment or proced ure WILL BE FAXED TO [facility] WHEN RESULTS AVAILABLE Pending Test Test Name Order Date CT ABD W&WO CONTRAST 01/08/2025 Blood Urea Nitrogen 01/08/2025 Creatinine 01/08/2025 Next Appt Details Follow Up: after cat scan, Yasmany álvarez: Provider Name:Brenden hsu, 05/18/2025 01:30:00 PM, [address] [place] [address], [address], [place], [place], [phone], Provider Name:Brenden hsu, 12/03/2025 07:00:00 AM, [address] [place] [address], [address], [place], [place], [phone], Provider Name:Brenden South ier, 12/08/2025 10:30:00 AM, [address], [address], [place], [phone], Progress Notes * Aidan MOYA MD (Ryszard) OB:1950 (74 yo M)Acc No.[id number]:01/08/2025 Progress Notes Patient: Humza DWYER Aidan (Cosme) Pavan Provider: Ugo Latif MD :1950 A ge:74 Y S ex:Male Date:01/08/2025 Address: [address] , [facility] Subjective: * Chief Complaints: * 1 . 4 week. 2. Accompanied by . * HPI: S ymptom(s): patient is a 74 yo male here for 4 week follow up visit/ needs new cpap machine./ having night sweats and feeling poorly sleepy all the time. lft still elevated off the atorvastattin for one month. * ROS: G eneral/Constitutional: Denies C hills. D enies F atigue. D enies F ever. D enies H eadache. E NT: Denies S ore throat. R espiratory: Denies C ough. D enies S hortness of breath at rest. D enies S hortness of breath with exertion. G astrointestinal: Denies D iarrhea. D enies N ausea. * Medical History: R efuses flu shot - 05/13/12, colonoscopy 2008; colonoscopy done 11/25/14 - repeat 5 years (Dr. Dhaliwal); Colonoscopy done 12/15/[address] Dhaliwal - repeat 5 years, [id number] lung 2023. * Medications: T aking Vitamin D3 125 MCG (5000 UT) Capsule 1 capsule Orally Once a day , Taking Aspir-81 81 MG Tablet Delayed Release 1 tablet Orally Once a day , Taking Ezetimibe 10 MG Tablet 1 tablet Orally Once a day , Taking Metoprolol Tartrate 50 MG Tablet 1 tablet with food Orally Twice a day , Taking amLODIPine Besylate 5 MG Tablet TAKE 1 TABLET BY MOUTH EVERY DAY , Taking Amoxicillin 500 MG Capsule 4 capsule Orally one hour before dentist , Not-Taking/PRN Atorvastatin Calcium 80 MG Tablet TAKE 1 TABLET BY MOUTH DAILY , Not-Taking/PRN Magnesium 400 MG Tablet as directed Orally , Not-Taking/PRN Nizoral 2 % Shampoo as directed Externally daily , Medication List reviewed and reconciled with the patient * Allergies: N .K.D.A. Objective: * Vitals: H t: 61, Wt: 223, BMI:42.13, BP:108/64, Wt-k.15. weight is down 5 pounds since 12-04-24. * P ast Orders: L ab:Liver Panel (Order Date - 01/01/2025) (Collection Date & Time - 01/01/2025 07:00 AM) Value Reference Range Bilirubin Total 0.6 0.0-1.0 - mg/dL Bilirubin Direct 0.2 0.0-0.5 - mg/dL Aspartate Amino Transferase 47 H 5-37 - U/L Alanine Aminotransferase 54 H 0-40 - U/L Total Protein 6.9 6.5-8.0 - g/dL Albumin Level 3.8 3.5-5.0 - g/dL Alkaline Phosphatase 131 H 39-117 - U/L * Examination: G eneral Examination: GENERAL APPEARANCE: a lert, well hydrated, in no distress.? HEAD: n ormocephalic. SKIN: g ood turgor. HEART: r egular rate and rhythm, no murmurs, rubs, gallops.? LUNGS: n o wheezes, rales, rhonchi, good air movement, clear to auscultation bilaterally. ABDOMEN: s oft, nontender, nondistended, no organomegaly.? Assessment: * Assessment: 1. N ight sweats - R61 (Primary) 2 . O SA (obstructive sleep apnea) - G47.33 3 . E levated LFTs - R79.89 4 . E ncounter for preprocedural laboratory examination - Z01.812 5 . B lood tests prior to treatment or procedure - Z01.812 Plan: * Treatment: 2. B lood tests prior to treatment or procedure L AB: Blood Urea Nitrogen L AB: Creatinine Notes: WILL BE FAXED TO [facility] WHEN RESULTS AVAILABLE * Procedure Codes: 3 6415 VENIPUNCT, ROUTINE* * Follow Up: a fter cat scan * * The named appointment provid er may or may not be the originator of this progress note, and it is not deemed complete until electronically signed by the appointment provider. Sign off status: Pending * Provider: Ugo Latif MD Date: 0 01/08/2025 Generated for John schuster/Jcarlos/Earlineitting on: 07/11/2024 12:19 PM EST History and Physical Notes * HPI (History of Present Illness) Category Sub-Category Detail Notes Category Not es Symptom(s) patient is a 74 yo male here for 4 week follow up visit/ needs new cpap machine./ having night sweats and feeling poorly sleepy all the time. lft still elevated off the atorvastattin for one month Examination Category Sub-Category Detail Notes Category Not es General Examination GENERAL APPEARANCE: alert, w ell hydrated, in no distress HEAD: normocephalic HEART: regular rate and rhy thm, no murmurs, rubs, gallops LUNGS: no wheezes, rales, r honchi, good air movement, clear to auscultation bilaterally ABDOMEN: soft, nontender, non distended, no organomegaly SKIN: good turgor
--- OUTSIDE RECORDS SUMMARY | 2025-01-08 06:20 | XMS_ITS ---
Author Organization Brenden Latif MD Address [address] [place] [phone] Care Team Providers Care Elevator Repairer Helper Name Role Phone Brenden Latif Primary Care Provider REASON FOR VISIT CT SCHEDULE Encounters Encounter Location Date Provider Diagnosis Brenden Latif MD [address] [facility] [address] [place] [phone] 01/08/2025 Brenden Latif Plan Of Treatment Next Appt Details Provider Name:Brenden South ier, 05/18/2025 01:30:00 PM, [address] [place] [address], [address], [phone], Provider Name:Brenden hsu, 12/03/2025 07:00:00 AM, [address] [place] [address], [address], [phone], Provider Name:Brenden hsu, 12/08/2025 10:30:00 AM, [address], [address], [place], [place], [phone], Progress Notes * Aidan MOYA MD (Ryszard) OB:1950 (74 yo M)Acc No.[id number]:01/08/2025 Patient: Aidan JOHNSON (Ryszard) :1950 A ge:74 Y S ex:Male Address: [place] [address] * true * Date: Generated for John schuster/Jcarlos/eTransmitting on: 07/11/2024 12:19 PM EST
--- OUTSIDE RECORDS SUMMARY | 2025-02-20 03:14 | XMS_ITS ---
Author Organization Brenden Latif MD Address [address] [place] [phone] Care Team Providers Care Broomcorn Press Feeder Name Role Phone Bhavya Brenden Primary Care Provider REASON FOR VISIT US abd Encounters Encounter Location Date Provider Diagnosis Brenden Latif MD [address] [place] [phone] 02/20/2025 Brenden Latif Liver mass R16.0 Assessments Encounter Date Diagnosis (ICD Code) Assessment Notes Treatment Notes Treatment Clinical Notes Section Notes 02/20/2025 Liver mass (ICD-10 - R16.0) Plan Of Treatment Pending Test Test Name Order Date US abdomen limited 02/20/2025 Next Appt Details Provider Name:Brenden hsu, 05/18/2025 01:30:00 PM, [address], [address], [place], [place], [phone], Provider Name:Brenden hsu, 12/03/2025 07:00:00 AM, [address], [address], [place], [place], [phone], Provider Name:Brenden South shadi, 12/08/2025 10:30:00 AM, [address], [address], [place], [phone], Progress Notes * Aidan MOYA MD (Ryszard) OB:1950 (74 yo M)Acc No.[id number]:02/20/2025 Patient: Aidan JOHNSON (Ricardo Browne :1950 A ge:74 Y S ex:Male Address: [place] [address] Subjective: * Chief Complaints: * U S abd * Medical History: * Surgical History: * Hospitalization/Major Diagno stic Procedure: * Medications: Objective: * Vitals: * Physical Examination: Assessment: * Assessment: 1. L [facility] - R16.0 Plan: * Treatment: * Procedure Codes: * true * Date: Generated for John schuster/Jcarlos/eTelsasmitting on: 07/11/2024 12:18 PM EST
--- OUTSIDE RECORDS SUMMARY | 2025-03-03 09:15 | XMS_ITS ---
Author Organization Brenden Latif MD Address [address] [place] [phone] Care Team Providers Care Ground Crew Lines Person Name Role Phone Brenden Latif Primary Care Provider Allergies No Known Allergies REASON FOR VISIT CBACK AFTER CT SCAN, Accompanied by Medications Medication SIG (Take, Route, Frequency, Duration) Notes Start Date End Date Status Amoxicillin 500 MG 4 capsule Orally one hour before dentist for 1 days Active amLODIPine Besylate 5 MG TAKE 1 TABLET B Y MOUTH EVERY DAY for 90 Active Nizoral 2 % as directed External ly daily for 30 days Not-Taking Magnesium 400 MG as directed Orally Active Atorvastatin Calcium 80 MG TAKE 1 TABLET BY MOUTH DAILY Not-Taking Metoprolol Tartrate 50 MG 1 tablet with food Orally Twice a day Active Ezetimibe 10 MG 1 tablet Orally Once a day Active Aspir-81 81 MG 1 tablet Orally Once a day Active Vitamin D3 125 MCG (5000 UT) 1 capsule Orally Once a day for 30 day(s) Active Problems Problem Type SNOMED Code ICD Code Onset Dates Problem Status W/U Status Risk Notes Problem Computed tomography result abnormal ([id number]) Abnormal CAT scan (R93.89) Active confirmed Vital Signs Blood pressure systolic 144 mm Hg 03/03/20 25 Blood pressure diastolic 70 mm Hg 025 Height 61 in 03/03/2025 Weight 227 lbs 03/03/2025 BMI 42.89 kg/m2 03/03/2025 weight is up 4 pounds since 01-08-25 Encounters Encounter Location Date Provider Diagnosis Brenden Latif MD [address] [place], [place] [phone] 03/03/2025 Brenden Latif ELLA (obstructive sleep apnea) G47.33 ; Abnormal CAT scan R93.89 and Liver mass R16.0 Assessments Encounter Date Diagnosis (ICD Code) Assessment Notes Treatment Notes Treatment Clinical Notes Section Notes 03/03/2025 ELLA (obstructive sleep apnea) (ICD-10 - G47.33) is using the cpap machine and getting benefit consistently 03/03/2025 Abnormal CAT scan (ICD-10 - R93.89) discussed results of CT scan with patient, needs liver mass protocol mri at [facility] Total time spent on the date of the encounter is 35 minutes including both face to face time spent and time spent reviewing documentation, pertinent lab data, studies and counseling the patient. 03/03/2025 Liver mass (ICD-10 - R16.0) pending diagnostic testing Plan Of Treatment Treatment Notes Assessment Notes ELLA (obstructive sleep apnea) is using t he cpap machine and getting benefit consistently Abnormal CAT scan discussed results of CT scan with patient, needs liver mass protocol mri at [facility] Total time spent on the date of the encounter is 35 minutes including both face to face time spent and time spent reviewing documentation, pertinent lab data, studies and counseling the patient. Liver mass pending diagnostic t esting Pending Test Test Name Order Date MRI ABD W&WO CONTRAST 03/03/2025 Next Appt Details Follow Up: after mri, Reason : Provider Name:Brenden hsu, 05/18/2025 01:30:00 PM, [address], [address], [place], [place], [phone], Provider Name:Brenden hsu, 12/03/2025 07:00:00 AM, [address], [address], [place], [place], [phone], Provider Name:Brenden South ier, 12/08/2025 10:30:00 AM, [address], [address], [place], [place], [phone], Progress Notes * Aidan MOYA MD (Ryszard) OB:1950 (74 yo M)Acc No.[id number]:03/03/2025 Patient: Humza DWYER Aidan (Cosme) M Provider: Ugo Latif MD :1950 A ge:74 Y S ex:Male Date:03/03/2025 Address: [address] [id number] Subjective: * Chief Complaints: * C BACK AFTER CT SCANAccompanied by * HPI: S ymptom(s): patient is a 74 yo male here for follow up visit with discuss recent CT Scan. * ROS: G eneral/Constitutional: Denies C hills. D enies F atigue. D enies F ever. D enies H eadache. E NT: Denies S ore throat. R espiratory: Denies C ough. D enies S hortness of breath at rest. D enies S hortness of breath with exertion. C ardiovascular: Denies C hest pain at rest. D enies C hest pain with exertion. D enies D izziness. D enies P alpitations. A dmits S hortness of breath. G astrointestinal: Denies D iarrhea. D enies N ausea. * Medical History: * Surgical History: * Hospitalization/Major Diagno stic Procedure: * Medications: T akingVitamin D3 125 MCG (5000 UT) Capsule 1 capsule Orally Once a day Aspir-81 81 MG Tablet Delayed Release 1 tablet Orally Once a day Ezetimibe 10 MG Tablet 1 tablet Orally Once a day Metoprolol Tartrate 50 MG Tablet 1 tablet with food Orally Twice a day amLODIPine Besylate 5 MG Tablet TAKE 1 TABLET BY MOUTH EVERY DAY Amoxicillin 500 MG Capsule 4 capsule Orally one hour before dentist Magnesium 400 MG Tablet as directed Orally Taking Vitamin D3 125 MCG (5000 UT) Capsule 1 capsule Orally Once a day Taking Aspir-81 81 MG Tablet Delayed Release 1 tablet Orally Once a day Taking Ezetimibe 10 MG Tablet 1 tablet Orally Once a day Taking Metoprolol Tartrate 50 MG Tablet 1 tablet with food Orally Twice a day Taking amLODIPine Besylate 5 MG Tablet TAKE 1 TABLET BY MOUTH EVERY DAY Taking Amoxicillin 500 MG Capsule 4 capsule Orally one hour before dentist Taking Magnesium 400 MG Tablet as directed Orally Not-Taking/PRNAtorvastatin Calcium 80 MG Tablet TAKE 1 TABLET BY MOUTH DAILY Nizoral 2 % Shampoo as directed Externally daily Medication List reviewed and reconciled with the patientNot-Taking/PRN Atorvastatin Calcium 80 MG Tablet TAKE 1 TABLET BY MOUTH DAILY Not-Taking/PRN Nizoral 2 % Shampoo as directed Externally daily Medication List reviewed and reconciled with the patient * Allergies: N .K.D.A.yes[Allergies Verified] Objective: * Vitals: H t: 61, Wt: 227, BMI:42.89, BP:144/70, Wt-k.97. weight is up 4 pounds since 01-08-25. * Examination: G eneral Examination: GENERAL APPEARANCE: a lert, well hydrated, in no distress.? SKIN: g ood turgor, warm and dry. HEART: n o murmurs, rubs, gallops, regular rate and rhythm.? LUNGS: n o wheezes, rales, rhonchi, good air movement, clear to auscultation bilaterally. ABDOMEN: n ormal, liver edge one finger breadth below costal margin smooth. Assessment: * Assessment: 1. O SA (obstructive sleep apnea) - G47.33 (Primary) 2 . A bnormal CAT scan - R93.89 3 . L iver mass - R16.0 Plan: * Treatment: 2. A bnormal CAT scan Notes: discussed results of CT scan with patient, needs liver mass protocol mri at [facility] Total time spent on the date of the encounter is 35 minutes including both face to face time spent and time spent reviewing documentation, pertinent lab data, studies and counseling the patient. 3. L iver mass I maging: MRI ABD W&WO CONTRAST Notes: pending diagnostic testing * Procedure Codes: * Follow Up: a fter mri * * Sign off status: Completed true * Provider: Ugo Latif MD Date: 0 03/03/2025 Generated for John schuster/Jcarlos/Luli on: 07/11/2024 12:18 PM EST History and Physical Notes * HPI (History of Present Illness) Category Sub-Category Detail Notes Category Not es Symptom(s) patient is a 74 yo male here for follow up visit with discuss recent CT Scan Examination Category Sub-Category Detail Notes Category Not es General Examination GENERAL APPEARANCE: alert, w ell hydrated, in no distress HEART: no murmurs, rubs, ga llops, regular rate and rhythm LUNGS: no wheezes, rales, r honchi, good air movement, clear to auscultation bilaterally ABDOMEN: normal, liver edge o ne finger breadth below costal margin smooth SKIN: good turgor, warm an d dry
--- OUTSIDE RECORDS SUMMARY | 2025-04-30 09:53 | XMS_ITS ---
Author Organization Brenden Latif MD Address [address] [place] [phone] Care Team Providers Care Twist Packer Name Role Phone Brenden Latif Primary Care Provider REASON FOR VISIT FYI appt info Encounters Encounter Location Date Provider Diagnosis Brenden Latif MD [address] [place] [phone] 04/30/2025 Brenden Latif Plan Of Treatment Next Appt Details Provider Name:Brenden hutchinsonr, 05/18/2025 01:30:00 PM, [address] [place] [address], [address], [phone], Provider Name:Brenden hsu, 12/03/2025 07:00:00 AM, [address] [place] [address], [address], [phone], Provider Name:Brenden hsu, 12/08/2025 10:30:00 AM, [address], [address], [place], [place], [phone], Progress Notes * Aidan MOYA MD (Ryszard) OB:1950 (74 yo M)Acc No.[id number]:04/30/2025 Patient: Aidan JOHNSON (Ryszard) :1950 A ge:74 Y S ex:Male Address: [address] , [place] [address] * true * Date: Generated for John schuster/Jcarlos/Karrismitting on: 07/11/2024 12:18 PM EST
--- OUTSIDE RECORDS SUMMARY | 2025-05-11 03:00 | XMS_ITS ---
Author Organization Brenden Latif MD Address [address] [place] [phone] Care Team Providers Care Copy Lathe Operator Name Role Phone Brenden Latif Primary Care Provider [phone] REASON FOR VISIT fasting lipids Encounters Encounter Location Date Provider Diagnosis Brenden Latif MD [address] [place] [phone] 05/11/2025 Brenden Latif Prediabetes R73.03 a nd Pure hypercholesterolemia E78.00 Assessments Encounter Date Diagnosis (ICD Code) Assessment Notes Treatment Notes Treatment Clinical Notes Section Notes 05/11/2025 Prediabetes (ICD-10 - R73.03) 05/11/2025 Pure hypercholesterolemia (ICD-10 - E78.00) Plan Of Treatment Pending Test Test Name Order Date Liver Panel 05/11/2025 Glucose Fasting 05/11/2025 Lipid Panel with Reflex 05/11/2025 Hemoglobin A1c 05/11/2025 Next Appt Details Provider Name:Brenden South ier, 05/18/2025 01:30:00 PM, [address], [address], [place], [place], [phone], Provider Name:Brenden South ier, 12/03/2025 07:00:00 AM, [address], [address], [place], [place], [phone], Provider Name:Brenden South ier, 12/08/2025 10:30:00 AM, [address], [address], [place], [place], [phone], Progress Notes * Aidan MOYA MD (Ryszard) OB:1950 (74 yo M)Acc No.[id number]:05/11/2025 Progress Note Patient: Humza Aidan DWYER (Ricardo Browne Provider: Ugo Latif MD :1950 A ge:74 Y S ex:Male Date:05/11/2025 Address: [address] [place] [address] Subjective: * Chief Complaints: * 1 . Fasting lipids. * Medical History: Objective: * Vitals: Assessment: * Assessment: 1. P rediabetes - R73.03 (Primary) 2 . P ure hypercholesterolemia - E78.00? Plan: * Treatment: 2. P ure hypercholesterolemia L AB: Liver Panel L AB: Glucose Fasting L AB: Lipid Panel with Reflex L AB: Hemoglobin A1c * Procedure Codes: 3 6415 VENIPUNCT, ROUTINE* * * The named appointment provid er may or may not be the originator of this progress note, and it is not deemed complete until electronically signed by the appointment provider. Sign off status: Pending * Provider: Ugo Latif MD Date: 07/11/2024 Generated for John schuster/Jcarlos/Earlineitting on: 07/11/2024 12:18 PM EST
[2025-05-11 11:00] LABS: Alanine Aminotransferase 40 U/L (0-40); Albumin Level 4.1 g/dL (3.5-5.0); Alkaline Phosphatase 101 U/L (39-117); Aspartate Amino Transferase 32 U/L (5-37); Cholesterol 173 mg/dL (<200); HDL Cholesterol 36 mg/dL (>40); Total Protein 6.9 g/dL (6.5-8.0); Triglycerides 66 mg/dL (<150)
[2025-05-11 11:54] LABS: Reflex LDLD? No
--- OUTSIDE RECORDS SUMMARY | 2025-05-11 12:19 | XMS_ITS | Clinical Summary ---
Author Organization [facility] Address [address] [place] [phone] Phone Care Team Providers Care Trainer Name Role Phone Brenden Latif MD Primary Care Provider [phone] Allergies No known active allergies Medications cholecalciferol [...] and mediastinal lymphadenectomy which was performed at [facility] on February 11, 2024 for a stage [...] and mediastinal lymphadenectomy which was performed at [facility] on February 11, 2024 for a stage [...] - 03/08/2025 11:59 PM EDT Hospital Encounter [facility] MRI [address] [place] [address] Liver mass Discharge Disposition: Home or Self Care 02/27/2025 10:21 AM EDT - 02/27/2025 11:59 PM EDT Hospital Encounter [facility] Ultrasound [address] [place] [phone] Liver mass Discharge Disposition: Home or Self Care 02/12/2025 9:45 AM EDT - 02/12/2025 11:59 PM EDT Hospital Encounter [facility] CT Scan [address] [place] [phone] Other specified abnormal findings of blood chemistry [...] Description 12/14/2025 10:30 AM EDT Office Visit [facility] Hematology Oncology [address] [place] [phone] Alexia Denton DO [address] [place] [address] Health Maintenance Due Date Last Done Comments [...] Signed Date: 03/11/2025 10:26 ET Workstation ID: [id number] Transcribed By: Self Edit Transcribed Date: 03/11/2025 [...] Signed Date: 03/11/2025 10:26 ET Workstation ID: [id number] Transcribed By: Self Edit Transcribed Date: 03/11/2025 [...] Signed Date: 03/03/2025 09:13 ET Workstation ID: [id number] Transcribed By: Self Edit Transcribed Date: 03/03/2025 [...] Signed Date: 03/03/2025 09:13 ET Workstation ID: [id number] Transcribed By: Self Edit Transcribed Date: 03/03/2025 [...] Signed Date: 02/17/2025 14:34 ET Workstation ID: [id number] Transcribed By: Self Edit Transcribed Date: 02/17/2025 [...] Signed Date: 02/17/2025 14:34 ET Workstation ID: [id number] Transcribed By: Self Edit Transcribed Date: 02/17/2025 14:07 ET us Brenden Latif MD IMG CT PROCEDURES Final Res ult * Creatinine (11/19/2024 11:07 AM EDT) Creatinine 0.99 0.70 - 1.30 mg/dL LAB CHEMISTRY METHOD 11/19/2024 1:19 PM EDT [facility] eGFR 80 >=60 mL/min/1. 73m2 LAB CHEMISTRY METHOD 11/19/2024 1:19 PM EDT [facility] Comment:Calculation based on the Chronic Kidney Disease Epidemiology Collaboration (CKD-EPI) equation refit without adjustment for race. 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
--- OUTSIDE RECORDS SUMMARY | 2025-05-11 12:19 | XMS_ITS | Clinical Summary ---
Author Organization [facility] Address [address] [place] [address] Care Team Providers Care Health Services Rn Name Role Phone Brenden Latif MD Primary Care Provider [phone] Allergies No known active allergies Medications Medication [...] age to complete this topic Care Teams Health Services Rn Relationship Specialty Start Date End Date Brenden Latif MD [address] [place] [address] [address] [place] [phone] PCP - General Internal Medicine 02/29/24
--- OUTSIDE RECORDS SUMMARY | 2025-05-11 12:20 | XMS_ITS | Clinical Summary ---
Author Organization [employer] Address [address] [place] [address] [address] [place] [address] Care Team Providers Care Flexo Press Operator Name Role Phone Tyra Menjivar DMD Primary [...] age to complete this topic Care Teams Flexo Press Operator Relationship Specialty Start Date End Date Tyra Menjivar DMD PCP - General Dentist 05/05/22
--- OUTSIDE RECORDS SUMMARY | 2025-05-11 12:20 | XMS_ITS | Encounter Summary ---
Author Organization [facility] Address [address] [place] [address] Care Team Providers Care Curriculum Supervisor Name Role Phone Brenden Latif MD Primary Care Provider [phone] Encounter Details Date Type Department Care Team Description 03/14/2024 Social Work [facility] On[facility] [address] [place] [address] Jaime Aguirre, [facility] [place] Social History Tobacco Use [...] on filedocumented in this encounter Care Teams Curriculum Supervisor Relationship Specialty Start Date End Date Brenden Latif MD [address] [place] [phone] PCP - General Internal Medicine 02/29/24 documented as of this encounter
--- OUTSIDE RECORDS SUMMARY | 2025-05-11 12:20 | XMS_ITS | Encounter Summary ---
Author Organization [employer] Address [address] [facility] [address] [place] [address] Care Team Providers Care Air/Ocean Export Clerk Name Role Phone Tyra Menjivar DMD Primary [...] on filedocumented in this encounter Care Teams Air/Ocean Export Clerk Relationship Specialty Start Date End Date Tyra Menjivar DMD PCP - General Dentist 05/05/22 documented as of this encounter
--- OUTSIDE RECORDS SUMMARY | 2025-05-11 12:20 | XMS_ITS | Patient Health Record ---
Author Organization Brenden Latif MD Address [address] [place], [place] [id number] Care Team Providers Care Revenue Settlements Administrator Name Role Phone Brenden Latif Primary Care Provider [phone] Allergies No Known Allergies Results Component Value Reference Range Notes Complete Blood Count Auto Di ff Reviewed date:11/28/2024 12:46:23 PM Interpretation: Performing Lab:[facility], [address] [place] [phone] Notes/Report: White Blood Count 12.1 4.8-10.8 X10*3/uL Red Blood Count 4.87 4.60-5.80 X10*6/uL Hemoglobin 14.8 14.0-18.0 g/dl Hematocrit 45.3 42.0-52.0 % Mean Corpuscular Volume 93.0 80.0-98.0 fL Mean Corpuscular Hemoglobin 30.4 27.0-33.0 pg Mean Corpuscular HGB Conc 32.7 31.0-36.0 g/dl Red Cell Distribution Width 14.3 11.0-16.0 % Platelet Count 351 160-400 X10*3/uL Mean Platelet Volume 10.1 9.4-12.4 fL Neutrophils Percent Auto 61.6 45-73 % Imm Gran Pct Auto 1.3 0.0-0.4 % Lymphocytes Percent Auto 27.3 20-40 % Monocytes Percent Auto 6.7 2-11 % Eosinophils Percent Auto 2.7 0-4 % Basophils Percent Auto 0.4 0-2 % NRBC Pct Auto 0.0 0.0-0.2 /100WBC Neutrophils Absolute Auto 7.4 2.0-8.3 x10*3/u L Imm Gran Abs Auto 0.16 0.00-0.03 X10*3/uL Lymphocytes Absolute Auto 3.3 1.2-4.9 X10*3/u L Monocytes Absolute Auto 0.8 0.1-1.2 X10*3/uL Eosinophils Absolute Auto 0.3 0.0-0.4 X10*3/u L Basophils Absolute Auto 0.1 0.0-0.2 X10*3/uL NRBC Abs Auto 0.000 0.0-0.012 X10*3/uL Comprehensive [place]. Panel Fa st Reviewed date:12/04/2024 12:05:23 PM Interpretation:PAM 12/04 Performing Lab:[facility], [address] [place] [phone] Notes/Report: Sodium 142 135-145 mmol/L Potassium 4.4 3.3-5.1 mmol/L Chloride 110 96-108 mmol/L Carbon Dioxide 28 22-29 mmol/L Anion Gap 8 12-20 Blood Urea Nitrogen 10 9-16 mg/dL Creatinine 0.77 0.5-1.4 mg/dL Estimated Glomerular Filt Rate > 60 Chronic Kidney Disease: Estimated GFR < 60 mL/min/1.73m2 Severe Kidney Disease: Estimated GFR < 15 mL/min/1.73m2 Glucose Fasting 104 60-99 mg/dL A fasting glucose from 100-125 mg/dl is considered impaired (pre-diabetes). Calcium 9.1 8.4-10.2 mg/dL Bilirubin Total 0.5 0.0-1.0 mg/dL Aspartate Amino Transferase 93 5-37 U/L Alanine Aminotransferase 134 0-40 U/L Total Protein 7.1 6.5-8.0 g/dL Albumin Level 3.9 3.5-5.0 g/dL Alkaline Phosphatase 128 39-117 U/L Lipid Panel Reviewed date:11/28/2024 12:21:05 PM Interpretation: Performing Lab:[facility], [address] [place] [phone] Notes/Report: Triglycerides 78 <150 mg/dL Desirable Triglyceride: less than 150 mg/dL Borderline High Triglyceride 150-199 mg/dL High Triglyceride: 200-499 mg/dL Very High Triglyceride: greater than or equal to 5OO mg/dL Cholesterol 110 <200 mg/dL Desirable Cholesterol: less than 200 mg/dL Borderline High Cholesterol: 200-239 mg/dL High Cholesterol: greater than 239 mg/dL LDL Cholesterol Calculated 67 <100 mg/dL Desirable LDL: less than 100 mg/dL Near Optimal/Above Optimal LDL: 110-129 mg/dL Borderline High LDL: 130-159 mg/dL High LDL: 160-189 mg/dL Very High LDL: greater than or equal to 190 mg/dL HDL Cholesterol 28 >40 mg/dL Desirable HDL: greater than 40 mg/dL Note: This HDL assay may give artificially low results in patients with liver disease. PSA,Total (Free>4and<10) Reviewed date:11/28/2024 12:20:48 PM Interpretation: Performing Lab:[facility], [address] [place] [phone] Notes/Report: PSA,Total (Free>4and<10) 0.70 0.00-4.00 ng/mL A Free PSA was not performed: The percentage of Free PSA can be used to enhance the differentiation of prostate cancer from benign prostatic disease in subjects whose PSA levels are between 4.0 and 10.0 ng/mL. For subjects whose PSA levels are below 4.0 or above 10.0 ng/mL, the risk of prostate cancer is determined on the basis of the PSA alone. Therefore the % Free PSA is recommended only for those subjects whose PSA levels are between 4.0 and 10.0 ng/mL. PSA methodology: Freeman Alinity i Chemiluminescent Microparticle Immunoassay (CMIA) Hemoglobin A1c Reviewed date:11/28/2024 12:45:54 PM Interpretation: Performing Lab:[facility], [address] [place] [phone] Notes/Report: Hemoglobin A1c % 5.9 <6.0 % Hemoglobin A1C Reference Range Adults: 4.8 - 6.0 % Non diabetic: < 6.0 % Goal: < 7.0 % Additional Action Suggested: > 8.0 % Note: Hemoglobin A1c results are invalid for patients with abnormal amounts of HbF. Blood transfusions may impact the HbA1c concentration in the patient sample. Estimated Average Glucose 123 eAG = Estimated average glucose which is %A1C expressed as average glucose, using the formula of the [id number] Average Glucose study (ADAG), Diabetes Care, Vol.31,#8, Feb. 2007 UA ClnCatch+Micro w/rflx Cul t Reviewed date:12/05/2024 04:18:07 PM Interpretation: Performing Lab:[facility], [address] [place] [phone] Notes/Report: Urine, Clean Catch Color Urine Dark Yellow Appearance Urine Clear PH 6.0 5.0-9.0 Glucose Urine UA Negative Negative mg/dL Urine Blood Negative Negative Specific [place] - Urine 1.020 1.005-1.025 Urine Protein 30 (1+) Neg-Trace mg/dL Urine Ketones Negative Negative mg/dL Nitrite Urine Negative Negative Leukocyte Esterase Urine Negative Negative RBC Urine 0-2 0-2 /HPF WBC Urine 0-5 0-5 /HPF Squamous Epithelial Cell Urine 0-2 0-2 /HPF Bacteria Urine None Seen None Seen Hyaline Casts Urine 0-2 0-2 /LPF Liver Panel Reviewed date:01/01/2025 12:53:01 PM Interpretation: Performing Lab:[facility], [address] [place] [phone] Notes/Report: Bilirubin Total 0.6 0.0-1.0 mg/dL Bilirubin Direct 0.2 0.0-0.5 mg/dL Aspartate Amino Transferase 47 5-37 U/L Alanine Aminotransferase 54 0-40 U/L Total Protein 6.9 6.5-8.0 g/dL Albumin Level 3.8 3.5-5.0 g/dL Alkaline Phosphatase 131 39-117 U/L Blood Urea Nitrogen Reviewed date:01/12/2025 12:49:19 PM Interpretation: Performing Lab:[facility], [address] [place] [phone] Notes/Report: Blood Urea Nitrogen 15 9-16 mg/dL Creatinine Reviewed date:01/12/2025 12:49:10 PM Interpretation: Performing Lab:[facility], [address] [place] [phone] Notes/Report: Creatinine 0.81 0.5-1.4 mg/dL Estimated Glomerular Filt Rate > 60 Chronic Kidney Disease: Estimated GFR < 60 mL/min/1.73m2 Severe Kidney Disease: Estimated GFR < 15 mL/min/1.73m2 Reason For Referral No Information Medications Medication SIG (Take, Route, Frequency, Duration) Notes Start Date End Date Status Amoxicillin 500 MG 4 capsule Orally one hour before dentist for 1 days Active amLODIPine Besylate 5 MG TAKE 1 TABLET B Y MOUTH EVERY DAY for 90 Active Metoprolol Tartrate 50 MG 1 tablet with food Orally Twice a day Active Ezetimibe 10 MG 1 tablet Orally Once a day Active Aspir-81 81 MG 1 tablet Orally Once a day Active Vitamin D3 125 MCG (5000 UT) 1 capsule Orally Once a day for 30 day(s) Active Nizoral 2 % as directed External ly daily for 30 days Not-Taking Magnesium 400 MG as directed Orally Active Atorvastatin Calcium 80 MG TAKE 1 TABLET BY MOUTH DAILY Not-Taking Immunizations Vaccine Route Administration Date Status Comme nts Flu Vaccine IM Intramuscular 03/27/2011 Administered Fluarix Quadrivalent IM Intramuscular 03/17/2014 Administe red Fluarix Quadrivalent IM Intramuscular 04/05/2015 Administe red Fluarix Quadrivalent IM Intramuscular 05/23/2016 Administe red PPSV23 (Pnemovax) IM Intramuscular 05/25/2016 Administered Fluarix Quadrivalent IM Intramuscular 04/26/2017 Administe red TDaP Unknown 08/13/2017 Administered [facility] Prevnar 13 IM Intramuscular 09/11/2017 Administered Fluarix [...] Problem Status W/U Status Risk Notes Problem 68890378 Essential hypert ension (I10) Active confirmed Problem 130011528 Low HDL (under 4 0) (E78.6) Active confirmed Problem Solitary nodule of lung (933818512) Lung nodule (R91.1) Active confirmed Problem 058639569 Morbid obesity d ue to excess calories (E66.01) Active confirmed Problem 714415231 Numbness of left foot (R20.8) Active confirmed Problem 634844239 Leukocytosis, unspecified type (D72.829) Active confirmed Problem 32305370 Abdominal aortic aneurysm (AAA) without rupture (I71.4) Active confirmed Problem 299510380 Prediabetes (R73.03) Active confirmed Problem 567354343 Pure hypercholesterolemia (E78.00) Active confirmed Problem 17055071 Coronary artery disease of [place] artery of [place] heart with stable angina pectoris (I25.118) Active confirmed Problem 62611390 ELLA (obstructive sleep apnea) (G47.33) Active confirmed Problem 7355093683917 Adenomatous rect al polyp (D12.8) Active confirmed Problem 688075283 Obesity, morbid, BMI 40.0-49.9 (E66.01) Active confirmed Problem 109395194 Tonsillar enlarg ement (J35.1) Active confirmed Problem 41765148373356831 Abnormal CT sc an, chest (R93.89) Active confirmed Problem Computed tomography result abnormal (717519994) Abnormal CAT scan (R93.89) Active confirmed Problem 869815080 History of lung cancer (Z85.118) Active confirmed Vital Signs Blood pressure diastolic 70 mm Hg 03/03/2025 meghan ght is up 4 pounds since 01-08-25 Height 61 in 03/03/2025 weight is up 4 pounds since 01-08-25 Blood pressure systolic 144 mm Hg 03/03/2025 weig ht is up 4 pounds since 01-08-25 Weight 227 lbs 03/03/2025 weight is up 4 pounds since 01-08-25 BMI 42.89 kg/m2 03/03/2025 weight is up 4 pounds since 01-08-25 Encounters Encounter Location Date Provider Diagnosis Brenden Latif MD [address] [place] [id number] 11/27/2024 Brenden Latif Essential hypertensi on I10 ; Leukocytosis, unspecified type D72.829 ; Pure hypercholesterolemia E78.00 and Prediabetes R73.03 Brenden Latif MD [address] [place] [id number] 01/01/2025 Brenden Latif Elevated LFTs R79.89 Brenden Latif MD [address] [place] [id number] 01/08/2025 Brenden Latif Night sweats R61 ; O SA (obstructive sleep apnea) G47.33 ; Elevated LFTs R79.89 ; Encounter for preprocedural laboratory examination Z01.812 and Blood tests prior to treatment or procedure Z01.812 Brenden Latif MD [address] [place] [id number] 05/11/2025 Brenden Latif Prediabetes R73.03 a nd Pure hypercholesterolemia E78.00 Brenden Latif MD [address] [place] [id number] 05/13/2024 Brenden Latif History of lung canc er Z85.118 ; ELLA (obstructive sleep apnea) G47.33 ; Coronary artery disease of [place] artery of [place] heart with stable angina pectoris I25.118 ; Essential hypertension I10 and Pure hypercholesterolemia E78.00 Brenden Latif MD [address] [place] [id number] 12/04/2024 Brenden Latif Pure hypercholestero lemia E78.00 ; Essential hypertension I10 ; History of lung cancer Z85.118 ; Adenomatous rectal polyp D12.8 ; Elevated LFTs R79.89 and Prediabetes R73.03 Brenden Latif MD [address] [place] [address] [id number] 03/03/2025 Brenden Latif ELLA (obstructive sle ep apnea) G47.33 ; Abnormal CAT scan R93.89 and Liver mass R16.0 Brenden Latif MD [address] [place] [id number] 12/18/2024 Brenden Latif Renal cysts, acquire d, bilateral N28.1 Brenden Latif MD [address] [place] [address] [id number] 12/23/2024 Brenden Latif MD [address] [place] [id number] 01/08/2025 Brenden Latif MD [address] [place] [id number] 02/20/2025 Brenden Latif Liver mass R16.0 Brenden Latif MD [address] [place] [id number] 04/30/2025 Brenden Latif Assessments Encounter Date Diagnosis (ICD Code) Assessment Notes Treatment Notes Treatment Clinical Notes Section Notes 11/27/2024 Essential hypertensi on (ICD-10 - I10) 01/01/2025 Elevated LFTs (ICD-1 0 - R79.89) 01/08/2025 Night sweats (ICD-10 - R61) 01/08/2025 ELLA (obstructive sle ep apnea) (ICD-10 - G47.33) 05/11/2025 Prediabetes (ICD-10 - R73.03) 05/13/2024 History of lung canc er (ICD-10 - Z85.118) had surgery at [facility]. need the pathology results/ request for records sent 05/13/2024 ELLA (obstructive sle ep apnea) (ICD-10 - G47.33) using his cpap nightly 12/04/2024 Pure hypercholesterolemia (ICD-10 - E78.00) doing well but may have to decrease statin, will continue to monitor off medication 12/04/2024 Essential hypertensi on (ICD-10 - I10) well controlled, will continue current regiment 03/03/2025 ELLA (obstructive sle ep apnea) (ICD-10 - G47.33) is using the cpap machine and getting benefit consistently 03/03/2025 Abnormal CAT scan (ICD-10 - R93.89) discussed results of CT scan with patient, needs liver mass protocol mri at [facility] Total time spent on the date of the encounter is 35 minutes including both face to face time spent and time spent reviewing documentation, pertinent lab data, studies and counseling the patient. 12/18/2024 Renal cysts, acquire d, bilateral (ICD-10 - N28.1) Order made and put into the future folder for 02/20/2025 Liver mass (ICD-10 - R16.0) 11/27/2024 Leukocytosis, unspecified type (ICD-10 - D72.829) 01/08/2025 Elevated LFTs (ICD-1 0 - R79.89) ORDER FAXED TO [facility] FOR SCHEDULING @ [phone] 05/11/2025 Pure hypercholesterolemia (ICD-10 - E78.00) 05/13/2024 Coronary artery dise ase of [place] artery of [place] heart with stable angina pectoris (ICD-10 - I25.118) not having any symptoms 12/04/2024 History of lung canc er (ICD-10 - Z85.118) no evidence of recurrance 11/27/2024 Pure hypercholesterolemia (ICD-10 - E78.00) 05/13/2024 Essential hypertensi on (ICD-10 - I10) stable, will continue current regiment 12/04/2024 Adenomatous rectal polyp (ICD-10 - D12.8) needs appt with dr jon for colonoscopy this year 03/03/2025 Liver mass (ICD-10 - R16.0) pending diagnostic testing 11/27/2024 Prediabetes (ICD-10 - R73.03) 01/08/2025 Encounter for preprocedural laboratory examination (ICD-10 - Z01.812) 05/13/2024 Pure hypercholesterolemia (ICD-10 - E78.00) labs reviewed, stable, will contiue current regiment 12/04/2024 Elevated LFTs (ICD-1 0 - R79.89) stop atorvastin for one month and recheck the lft 01/08/2025 Blood tests prior to treatment or procedure (ICD-10 - Z01.812) WILL BE FAXED TO [facility] WHEN RESULTS AVAILABLE 12/04/2024 Prediabetes (ICD-10 - R73.03) stable, no need for medication at this time Plan Of Treatment Pending Test Test Name Order Date Electrocardiogram (EKG) 06/26/2019 CT ABD W&WO CONTRAST 01/08/2025 MRI ABD W&WO CONTRAST 03/03/2025 NUC WHOLE BODY SCAN BONE 05/25/2016 Complete Blood Count Auto Diff Comprehensive [place]. Panel Fast Liver Panel 05/11/2025 Blood Urea Nitrogen 01/08/2025 Creatinine 01/08/2025 Glucose Fasting 05/11/2025 Glucose Fasting 11/30/2020 Lipid Panel 11/27/2024 Lipid Panel with Reflex 05/11/2025 PSA,Total (Free>4and<10) 11/27/2024 Microalbumin, Random 11/27/2024 CT chest wo con 06/14/2023 US abdomen limited 02/20/2025 US abdomen complete 12/18/2024 Hemoglobin A1c 05/11/2025 Hemoglobin A1c 11/27/2024 UA ClnCatch+Micro w/rflx Cult 11/27/2024 UA ClnCatch+Micro w/rflx Cult 12/04/2024 Liver Panel 01/01/2025 Future Test Test Name Order Date CT chest wo con 11/15/2023 Next Appt Details Provider Name:Brenden hsu, 05/18/2025 01:30:00 PM, [address] [place] [address], [address], [place], [place], [phone], Provider Name:Brenden hsu, 12/03/2025 07:00:00 AM, [address] [place] [address], [address], [place], [place], [phone], Provider Name:Brenden hsu, 12/08/2025 10:30:00 AM, [address], [address], [place], [place], [phone], Insurance Providers Payer Name Payer Address Payer Phone Subscriber Number Group Number Insured Name Patient Relationship to Insured Coverage Start Date Coverage End Date MEDICARE [employer] [address] [place] [address] [id number] Aidan Garner ([place] ) Self - patient is the insured [facility] [address] [place], [place] [id number] Aidan Garner ([place] ) Self - patient is the insured Medical (General) History Medical History History ICD Code Refuses flu shot - 05/13/12 colonoscopy 2008; colonoscop y done 11/25/14 - repeat 5 years (Dr. Jon); Colonoscopy done 12/15/[address] Jon - repeat 5 years [id number] lung 2023 Surgical History Surgery Date(Month/Year) colonosocopy; positive; repeat in 2011 ( 2008)
--- OUTSIDE RECORDS SUMMARY | 2025-05-11 12:20 | XMS_ITS | Patient Health Record ---
Author Organization [facility] Address [address] [place] [address] Care Team Providers Care Family Consumer Scientist Name Role Phone Brenden Latif MD Primary Care Provider Allan Castrejon Unavailable [phone] Reason For Referral No Information Medications Medication SIG (Take, Route, Frequency, Duration) Notes Start Date End Date Status Atorvastatin Calcium 40 MG TK 1 T PO ONC E D Oral; Duration: 30 Active Aspir-81 81 MG 1 tablet Orally Once a day Active Lisinopril-hydroCHLOROthiaz diana 20-12.5 MG TK 1 T PO D Oral; Duration: 30 Active Immunizations Vaccine Route Administration Date Status [...] cigarettes QD; occasional beer. He came from [place] 1965. Nonsmoker since 2018; occasional beer. He came from [place] in 1966. Problems Problem Type SNOMED Code ICD Code Onset Dates Problem Status W/U Status Risk Notes Problem Screening for malignant neoplasm of colon (337916529) Encounter for screening for malignant neoplasm of colon (Z12.11) Active confirmed Problem Constipation (36573544) Constipation, unspecified constipation type (K59.00) Active confirmed Problem History of adenomatous polyp of colon (035352499) Hx of adenomatous colonic polyps (Z86.010) Active confirmed Plan Of Treatment Future Test Test Name Order Date COLONOSCOPY 08/07/2014 COLONOSCOPY 06/13/2019 Insurance Providers Payer Name Payer Address Payer Phone Subscriber Number Group Number Insured Name Patient Relationship to Insured Coverage Start Date Coverage End Date MEDICARE OF [place] [address] [place] [address] [phone] [id number] ENOC MOYA ([employer] ) Self - patient is the insured [employer] ATT[employer] CLAIMS [address] [place] [address] [id number] ENOC MOYA ) Self - patient is the insured Medical (General) History Medical History History ICD Code Hypertension Elevated Cholesterol Screening colonoscopy by Dr. Ragland in 2008 with the removal of 2 tubular adenomas--he was told to have another colonoscopy in 5 years; colonoscopy in 11/2014 with hyperplastic polyps Denies SD,DM,CVA,Lung disease,renal dise ase Sleep apnea--uses CPAP Surgical History Surgery Date(Month/Year) Appendectomy AAA--had initial IR procedur e with stent, but then needed surgery for the AAA 6 months later 2016 Spinal stenosis surgery 2016
== END 2025-05-11 10:17 | disposition home or self-care (01) ==
LOC: HO.LNP 10:16
PROVIDERS: Visit Provider Internal Medicine
DX: R73.03 Prediabetes (principal); E78.00 Pure hypercholesterolemia, unspecified
CPT/HCPCS: 80061; 80076; 82947; 83036

== ENCOUNTER → 2025-05-27 09:32 | Outpatient (REF) | payer MEDICARE, SELFPAY ==
--- NOTE | 2025-05-27 09:35 | CA_ITS ---
Transthoracic Echocardiogram Patient (Last, First, Middle): Cosme Garner, Gender: M Date of : 1950 Age: 74 Procedure Date: 05/27/2025 Procedure Type: Transthoracic Echocardiogram Location: OP Height: 182.88 cm Weight: 100.25 kg BSA: 2.22 m2 Heart Rate: bpm BP: 116 / 56 mmHg Membership Manager: Referring MD: Latrell Knox MD Symptoms: I48.0 - Paroxysmal atrial fibrillation Study Quality: Fair ECG Rhythm: Atrial Fibrillation Conclusions: - The left ventricular systolic function is normal. The calculated ejection fraction is 61% by biplane method. - The basal inferior segment is akinetic. - The mid inferior and basal inferolateral segments are hypokinetic. - No obvious valvular pathology seen on this study. Findings Left Ventricle Normal left ventricular cavity size. There is mildly increased left ventricular wall thickness. The left ventricular systolic function is normal. The calculated ejection fraction is 61% by biplane method. There is no evidence of regional wall motion abnormalities. Diastolic function is indeterminate on the basis of available data. Wall Motion Rest Echo Findings The mid inferior and basal inferolateral segments are hypokinetic. The basal inferior segment is akinetic. Right Ventricle Mildly increased right ventricular cavity size. There is normal right ventricular systolic function. Atria Severe biatrial enlargement. Aortic Valve There is a normal trileaflet aortic valve. There is mild calcification of the aortic valve. There is no aortic valve regurgitation. Mitral Valve The mitral valve appears normal. There is no mitral valve regurgitation. There is no mitral valve stenosis. Pulmonic Valve The pulmonic valve is likely normal. Tricuspid Valve There is mild tricuspid valve regurgitation. There is no evidence of pulmonary hypertension. Great Vessels The sinuses of valsalva is normal in size. Venous The inferior vena cava is normal in size and collapses greater than 50% with inspiration. Pericardium/Pleural There is no evidence of pericardial effusion. Prior Study Comparison No significant change compared to prior study dated: 08/29/2023. Recommendations, Care & Conclusions No obvious valvular pathology seen on this study. Measurements 2D Linear Measurements IVSd: 1.30 0.6-0.9/0.6-1.0 cm LVIDd: 5.20 3.9-5.3/4.2-5.9 cm LVIDd Index: 2.34 2.4-3.2/2.2-3.1 cm/m2 LVIDs: 3.66 2.0-3.6 cm LVPWd: 1.26 0.7-1.1 cm Ao Root: 3.10 2.1-3.5 cm LA Diam: 5.10 2.7-3.8/3.0-4.0 cm LAIDs Index: 2.30 1.5-2.3 cm/m2 LV Mass: 339.75 67-162/88-224 g LV Mass Index: 153.04 43-95/49-115 g/m2 LVOT Diam: 2.20 3.0+(-)1.3 cm 2D Systolic Function EF 4C: 60.90 >55% EF 2C: 62.10 >55% EF BiP: 60.60 >55% Mitral Valve MV Pk E: 1.10 MV Decel Time: 141.00 E'Lateral: 16.40 E'Medial: 10.90 E/E' Med: 10.10 E/E' Lat: 6.70 PHT: 41.00 MVA PHT: 5.37 Decel Galax: 7.79 Aortic Valve AoV Pk Janes: 1.23 AoV Mn Janes: 0.85 AoV VTI: 0.29 AoV Pk Grad: 6.00 Aov Mn Grad: 3.00 PRECIOUS Cont.VTI: 2.41 LVOT LVOT Pk Janes: 0.78 LVOT Mn Janes: 0.54 LVOT VTI: 0.18 LVOT Pk Grad: 2.00 LVOT Mn Grad: 1.00 LVOT Diam: 2.20 LVOT Area: 3.80 Diastolic Function MV Pk E: 1.10 E'Medial: 10.90 E/E' Med: 10.10 E' Laterial: 16.40 E/E' Lat: 6.70 Right Ventricle TAPSE (mm): 27.00 Tricuspid Valve TR Pk Janes: 2.38 TR Pk Grad: 23.00 RA Press: 3.00 RVSP: 26.00 Great Vessels Aorta Ao Root-2D: 3.10 2.0-3.7 cm Pulmonary Valve PV Pk Janes: 0.86 Peak PV Grad: 3.00 Updated in Other Vendor System with Status of Final Latrell Knox MD electronically signed on 05/29/2025 10:53:52 AM with status of Final
--- NOTE | 2025-05-27 09:35 | HM_ITS ---
* Total monitoring time 3 days. * Underlying rhythm is atrial fibrillation. Average ventricular rate 70/Min. * Rare ventricular ectopy. * No significant pauses or high-grade AV blocks. * No patient markers or diary events. MTDD
--- OUTSIDE RECORDS SUMMARY | 2025-05-27 17:35 | XMS_ITS | Clinical Summary ---
Author Organization [facility] Address [address] [place] [phone] Phone Care Team Providers Care Lime Mixer Tender Name Role Phone Brenden Latif MD Primary [...] and mediastinal lymphadenectomy which was performed at [facility] on February 11, 2024 for a [...] and mediastinal lymphadenectomy which was performed at [facility] on February 11, 2024 for a [...] - 03/08/2025 11:59 PM EDT Hospital Encounter [facility] MRI [address] [place] [address] Liver mass Discharge Disposition: Home or Self Care 02/27/2025 10:21 AM EDT - 02/27/2025 11:59 PM EDT Hospital Encounter [facility] Ultrasound [address] [place] [phone] Liver mass Discharge Disposition: Home or Self Care from [...] Used Date Smoking Tobacco: Former Cigarettes 1 Q uit: 07/09/2021 Smokeless Tobacco: Never Tobacco [...] Care Team (Late st Contact Info) Description 06/11/2025 1:15 PM EST Appointment [facility] CT Scan [address] [place] [address] 06/24/2025 9:45 AM EST Office Visit Thoracic Surgery - [place] [address] [place] [phone] Danny Allison PA [address] [place] [phone] 12/14/2025 10:30 AM EDT Office Visit [facility] Hematology Oncology [address] [place] [address] Alexia Denton, DO [address] [place] [address] Health Maintenance Due Date Last Done Comments [...] 02/27/2025 11 :10 AM EDT Liver mass CREATININE, SERUM Routine 11/19/2024 11: 07 AM [...] Signed Date: 03/11/2025 10:26 ET Workstation ID: [id number] Transcribed By: Self Edit Transcribed Date: 03/11/2025 [...] Signed Date: 03/11/2025 10:26 ET Workstation ID: [id number] Transcribed By: Self Edit Transcribed Date: 03/11/2025 09:59 ET us Brenden Latif MD IM MRI PROCEDURES Final Re sult * US [...] Signed Date: 03/03/2025 09:13 ET Workstation ID: [id number] Transcribed By: Self Edit Transcribed Date: 03/03/2025 [...] Signed Date: 03/03/2025 09:13 ET Workstation ID: [id number] Transcribed By: Self Edit Transcribed Date: 03/03/2025 09:04 ET us Brenden Latif MD IM US PROCEDURES Final Res ult * Creatinine (11/19/2024 11:07 AM EDT) Creatinine 0.99 0.70 - 1.30 mg/dL LAB CHEMISTRY METHOD 11/19/2024 1:[address] [facility] eGFR 80 >=60 mL/min/1. 73m2 LAB CHEMISTRY METHOD 11/19/2024 1:[address] [facility] Comment:Calculation based on the Chronic Kidney Disease Epidemiology Collaboration (CKD-EPI) equation refit without adjustment for race. Blood Venous blood specimen / Unknown Venipuncture / Unknown 11/19/2024 11:07 AM EDT 11/19/2024 12:06 PM EDT us Alexia Denton DO LAB BLOOD ORDERABLES Final Result [facility] [address] [place] [address], from Last 3 Months or Most Recently Relevant to Health Maintenance Insurance [facility]ICARE 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
== END ==
LOC: HO.CARD 09:32
PROVIDERS: PCP Internal Medicine; Visit Provider Internal Medicine
DX: I48.0 Paroxysmal atrial fibrillation (principal)
CPT/HCPCS: 93242; 93306

== ENCOUNTER → 2025-05-27 09:35 | Outpatient (BNV) | payer MEDICARE, SELFPAY | PROVIDERS: PCP Internal Medicine; Visit Provider Internal Medicine | DX: I51.89 Other ill-defined heart diseases (principal); I48.0 Paroxysmal atrial fibrillation | CPT/HCPCS: 93306 ==